=== PATIENT | female | born 1995 | race Caucasian/White ===

== ENCOUNTER 2019-11-27 18:25 | Outpatient (CLI) | payer MEDICAID, SELFPAY ==
[2019-11-27] VITALS (23 sets, daily range): BP systolic 105–117; BP diastolic 60–68; PULSE 83–96; O2SAT 96–98; BMI 35.1
[2019-11-27] MEDS: famotidine 20 mg/2 mL INJ IVP (19:24)
[2019-11-27] MEDS: sodium chloride 0.9% 1,000 ML 999 ML IV (19:24)
--- NOTE | 2019-11-27 22:00 | PM.ACPR ---
Procedure/Consent Procedure Narrative: NONSTRESS TEST: Place of test: [facility] [place] Indication: 24-year-old 2 para 1-0-0-1 at 31 weeks gestation, abdominal pain Date and time of test: 11/27/2019, 9 PM Baseline: 145 Variability: Moderate Accelerations: Present Decelerations: None Tocometry: Irregular contractions INTERPRETATION: NST nonreactive, continue kick counts
== END 2019-11-27 21:50 | disposition home or self-care (01) ==
LOC: OPOB 18:37 → OBGYN 21:48
PROVIDERS: Visit Provider Obstetrics & Gynecology
DX: O26.899 Other specified pregnancy related conditions, unspecified trimester (principal); Z3A.00 Weeks of gestation of pregnancy not specified; R10.9 Unspecified abdominal pain
CPT/HCPCS: 12345; 96360; 96375; 99211; J3490; J7030

== ENCOUNTER 2020-01-09 02:18 | Outpatient (CLI) | payer MEDICAID, SELFPAY ==
[2020-01-09] VITALS (20 sets, daily range): BP systolic 0–140; BP diastolic 0–87; PULSE 69–98; BMI 36.9
[2020-01-09] MEDS: HYDROcodone-acetaminophen 5-325 mg Tablet 1 TAB PO ×2 (04:28→05:40)
[2020-01-09 07:06] LABS: Bilirubin Urine Neg (Negative); Blood Urine Neg (Negative); Glucose Urine UA Norm (Normal); Ketones Urine Negative (Negative); Nitrate Urine Negative (Negative); Protein Urine Neg (Negative); Urine Appearance Clear (CLEAR); Urine Color Straw (Yellow); Urobilinogen Urine Norm (Negative); pH Urine 6 (5-7)
[2020-01-09 07:07] LABS: Leukocyte Esterase Urine Negative (Negative)
[2020-01-09 07:10] LABS: Add Urine Culture? No; Bacteria Urine TRACE /hpf; Mucus Urine TRACE /hpf; RBC Urine RARE /hpf (0-2); Squamous Epithelial Cell Urine 0-4 /hpf (0-5); WBC Urine RARE /hpf (0-5)
--- NOTE | 2020-01-09 07:40 | P.TNLD_ITS ---
OB L&D Triage Visit Information: Date of evaluation: 01/09/20 Comments/Additional reason(s) for visit: The patient is a 24-year-old 2 para 1 female who presented due to frequent contractions and abdominal pain. She was noted to be armando about every 5 minutes. She is having significant pain. We will continue to monitor the patient for about 4 hours. During that time she was still struggling with pain. As result I gave her a Vicodin on 2 separate oc casions. Her pain did improve moderately. She was discharged home in stable condition feeling better. Evaluation: Variability: Average (6-10) monitor accelerations: Present 15x15 Cervical dilation (cm): 1 station: -3 Laboratory results: Laboratory Tests 01/09/20 06:20 Urine Color Straw Urine Appearance Clear Urine pH 6 Ur Specific Gravit y 1.010 Urine Protein Neg Urine Glucose (UA) Norm Urine Ketones Negative Urine Blood Neg Urine Nitrate Negative Urine Bilirubin Neg Urine Urobilinogen Norm Ur Leukocyte Maria Eugenia ase Negative Urine RBC Rare Urine WBC Rare Ur Squamous Epith Cells 0-4 H Amorphous Sediment Not Reportable Urine Bacteria Trace Urine Mucus Trace Vital signs: Vital Signs - 24 hr 01/09/20 02:25 01/09/20 02:45 01/09/20 03:05 Pulse Rate 92 96 Blood Pressure 115/77 118/72 0/0 01/09/20 03:11 01/09/20 03:13 01/09/20 03:24 Pulse Rate 87 Blood Pressure 0/0 118/63 0/0 01/09/20 03:26 01/09/20 03:45 01/09/20 04:05 Pulse Rate 80 90 94 Blood Pressure 117/76 133/82 117/74 01/09/20 04:24 01/09/20 04:26 01/09/20 04:45 Pulse Rate 98 82 Blood Pressure 0/0 125/87 140/87 01/09/20 05:05 01/09/20 05:24 01/09/20 05:25 Pulse Rate 72 74 Blood Pressure 110/56 0/0 121/69 01/09/20 05:44 01/09/20 05:45 01/09/20 05:55 Pulse Rate 73 72 Blood Pressure 0/0 85/61 119/68 01/09/20 06:05 01/09/20 06:07 Pulse Rate 69 Blood Pressure 0/0 114/62 Final Diagnosis Final Diagnosis (1) Uterine contractions: Status: Acute (2) 37 weeks gestation of : Status: Acute Code(s): Z3A.37 - 37 weeks gestation of (3) Abdominal pain affecting : Status: Acute Code(s): O26.899 - Other specified related conditions, unspecified trimester; R10.9 - Unspecified abdominal pain (4) Sciatic nerve pain: Status: Acute Code(s): M54.30 - Sciatica, unspecified side Coding Level of Care Code Acute Detective And Intelligence Analyst for [facility] Fwd Diagnoses Uterine contractions 37 weeks gestation of Z3A.37 Abdominal pain affecting O26.899; R10.9 Sciatic nerve pain M54.30
== END 2020-01-09 07:30 | disposition home or self-care (01) ==
LOC: OPOB 02:18 → OBGYN 02:35
PROVIDERS: Family Provider Family Medicine; Visit Provider Family Medicine
DX: O62.9 Abnormality of forces of labor, unspecified (principal); R10.9 Unspecified abdominal pain; Z3A.37 37 weeks gestation of pregnancy; M54.30 Sciatica, unspecified side
CPT/HCPCS: 12345; 59025; 81001; 99211

== ENCOUNTER 2020-01-11 12:53 | Outpatient (CLI) | payer MEDICAID, SELFPAY ==
[2020-01-11 12:53] VITALS: BMI 37.0
[2020-01-11 13:11] VITALS: BP 120/73; PULSE 104; RESP 20; TEMP 36.7
[2020-01-11] MEDS: HYDROcodone-acetaminophen 5-325 mg Tablet 2 TAB PO (14:20)
[2020-01-11] MEDS: cyclobenzaprine 10 mg Tablet PO (15:09)
[2020-01-11 16:44] VITALS: BP 122/67; PULSE 72
--- NOTE | 2020-01-11 18:00 | PC.NURSE ---
Pt to L/D c/o severe back/hip pain 10/10, constant, unable to walk. This aligner typewriter assisted pt to bed, placed on monitor/toco, and SVE performed. Pt writhing in bed, denies ctx/labor pain, just the back/hip pain. Offered heating pad while waiting on orders from MD, pt denied stating it makes her itch . Dr Bernard in to see pt, [place] and Flexeril given. After a couple hours pt rating pain 5/10, able to walk to bathroom with assistance, and requesting to eat. Dr Bernard notified, and gave orders to d/c pt home with Flexeril Rx. Pt refused stating flexeril doesn't help at all . Dr Bernard then talked with pt on phone, and pt agreed to d/c with Rx for [place] to be called in by him. Routine d/c instructions discussed, along with back/sciatic pain education. Pt to wheelchair without assistance and d/c home.
== END 2020-01-11 17:20 | disposition home or self-care (01) ==
LOC: OPOB 12:54 → OBGYN 12:55
PROVIDERS: Family Provider Family Medicine; Visit Provider Family Medicine
DX: O26.899 Other specified pregnancy related conditions, unspecified trimester (principal); M54.9 Dorsalgia, unspecified
CPT/HCPCS: 59025; 99211

== ENCOUNTER 2020-01-23 08:23 | Inpatient (IN) | payer MEDICAID, SELFPAY ==
[2020-01-23] VITALS (52 sets, daily range): BP systolic 0–152; BP diastolic 0–82; PULSE 67–94; RESP 16–18; TEMP 36.3–36.8; BMI 38.2
[2020-01-23] MEDS: miSOPROStol 100 mcg tablet 25 MCG VAGINAL ×4 (08:59→22:25)
[2020-01-23 09:04] LABS: Basophils % 0.3 %; Eosinophils # 0.1 10^3/uL (0.0-0.8); Eosinophils % 0.6 %; Hematocrit 35.6 % (37.0-47.0); Hemoglobin 11.5 g/dL (11.5-15.3); Lymphocytes # 1.7 10^3/uL (0.8-4.8); Lymphocytes % 15.7 %; Mean Corpuscular HGB Conc 32.3 g/dL (30.0-36.0); Mean Corpuscular Hemoglobin 29.1 pg (28.0-34.0); Mean Corpuscular Volume 90.1 fL (81-99); Mean Platelet Volume 11.4 fL (7.4-10.4); Monocytes # 0.8 10^3/uL (0.2-0.9); Neutrophils # 8.34 10^3/uL (1.8-7.7); Neutrophils % 75.9 %; Nucleated Red Blood Cells % 0 %; Platelet Count 316 10^3/cmm (130-400); Red Blood Count 3.95 10^6/uL (4.1-5.3); Red Cell Distribution Width 13.5 % (12.1-15.1)
[2020-01-23] MEDS: HYDROcodone-acetaminophen 5-325 mg Tablet 2 TAB PO (12:11)
[2020-01-23] MEDS: dextrose 5%-lactated ringers 1,000 ML 125 ML IV (17:16)
[2020-01-23] MEDS: fentaNYL 50 mcg/mL INJ 2mL IVP ×3 (17:16→22:06)
[2020-01-24] VITALS (104 sets, daily range): BP systolic 0–172; BP diastolic 0–93; PULSE 64–109; RESP 16–20; TEMP 36.7–37.1; O2SAT 91–99
[2020-01-24] MEDS: morphine 4 mg/mL SDV 1 mL 8 MG IM (00:55)
[2020-01-24] MEDS: promethazine 25 mg/mL SDV 1 mL IM (00:55)
[2020-01-24] MEDS: oxytocin 30 UNIT/500 ML BAG IV (02:44)
[2020-01-24] MEDS: dextrose 5%-lactated ringers 1,000 ML 125 ML IV (02:45)
[2020-01-24] MEDS: fentaNYL 50 mcg/mL INJ 2mL IVP ×2 (06:16→07:34)
[2020-01-24] MEDS: lactated ringers 1,000 ML 999 ML IV ×2 (07:34→08:25)
--- NOTE | 2020-01-24 09:57 | ANES.PROC ---
Anesthesia Procedures Procedure/Date: 01/24/20 Epidural: Time Out Performed: Yes Consents Signed: Procedure Consent Consent: from patient Lumbar Level: L3-L4 Epidural position: sitting Epidural procedure: sterile prep of area, 1% lidocaine to numb the area, 18 g needle, neg for paresthesia, test dose given, placed PCEA, no systemic response, sterile dressing applied and 0.2% Ropiavacaine @ mls/hr (13) Additional Comments: GORAN at 6, catheter at 11cm.
--- NOTE | 2020-01-24 13:59 | P.ANESASSM_ITS ---
Pre-Anesthetic Assessment Pre-Anesthetic Assessment: Height/Weight: Height 1.65 m Weight 104.326 kg Temp Pulse Resp BP Pulse Ox 98.8 F 75 20 H 131/69 97 01/24/20 13:45 01/24/20 13:56 01/24/20 07:34 01/24/20 13:56 01/24/20 08:51 Was Beta Sergey taken within 24 hours: N/A Social: Social History: No alcohol and No tobacco Exam: Pre-Anes Outpt Exam: alert, oriented x 3, clear to auscultation bilaterally and regular rate & rhythm Airway: Submandibular: WNL Cervical ROM: WNL MP: 2 Dentition: Full Pulmonary: Pulmonary: None reported CV/HEM: CV/HEM: None reported : : None reported Hepatic: Hepatic: None reported GI: GI: None reported Metabolic: Metabolic: None reported Musc/skel: Musc/skel: None reported Neuropsych: Comments: Sciatic pain Anesthetic Plan: ASA status: 2 Anesthesia: Regional (specify below) (Labor epidural) Risk of > 500 ml blood loss (7ml/kg in children): No Meds/Allergies Current Medications: Current Medications Generic Name Dose Route Start Last Admin Trade Name Freq PRN Reason Stop Dose Admin Fentanyl 25 - 100 mcg 01/23/20 08:11 01/24/20 07:34 Fentanyl 50 Mcg/ Ml Inj 2ml IVP 75 mcg Q1H PRN Administration SEVERE PAIN Dextrose/Lactated Ringer's 1,000 mls @ 125 m ls/hr 01/23/20 08:11 01/24/20 11:04 Dextrose 5%-Lact ated Ringers IV 125 mls/hr .Q8H PRN Infusion per label comment s Dextrose/Lactated Ringer's 1,000 mls @ 125 m ls/hr 01/24/20 06:30 01/24/20 07:42 Dextrose 5%-Lact ated Ringers IV Not Given .Q8H MOHSEN Lactated Ringer's 1,000 mls @ 999 m ls/hr 01/24/20 06:17 01/24/20 11:03 Lactated Ringers IV Infused .Q1H1M PRN Infusion Per L&D Rescitati on Protocol Oxytocin 30 unit in 500 ml s @ 1 mls/hr 01/24/20 06:30 01/24/20 06:24 Pitocin IV Not Given .Q24H MOHSEN Protocol 1 MILLIUNIT/MIN Ropivacaine 200 mg in 100 mls @ 13 mls/hr 01/24/20 07:30 01/24/20 08:33 Naropin Premix EPIDURAL 13 mls/hr .Q7H42M MOHSEN Administration Lactated Ringer's 1,000 mls @ 999 m ls/hr 01/24/20 07:24 01/24/20 08:25 Lactated Ringers IV Infused .Q1H1M PRN Infusion See label comment s Misoprostol 25 mcg 01/23/20 22:15 01/23/20 22:25 Misoprostol 100 Mcg Tablet VAGINAL 01/25/20 22:16 25 mcg ONCE MOHSEN Administration PFSH Anesthesia PFSH: Family History (Updated 01/23/20 @ 09:11 by Roxane Mclaughlin RN) Other No significant active problems No significant family history Social History (Updated 01/23/20 @ 09:11 by Roxane Mclaughlin RN) Smoking and tobacco status: current every day smoker cigarettes Packs smoked per day: 0.25 (3-4 cig/day) Years cigarettes smoked: 14 Number of cigarettes per day: 1-5 Female Reproductive History: : 2 Data Anesthesia CBC & Chem 7: 01/23/20 08:42 Other Labs: Laboratory Results - last 48 hr 01/23/20 08:42 WBC 11.0 H RBC 3.95 L Hgb 11.5 Hct 35.6 L MCV 90.1 MCH 29.1 MCHC 32.3 RDW 13.5 Plt Count 316 MPV 11.4 H Neut % (Auto) 75.9 Lymph % (Auto) 15.7 [place] % (Auto) 7.0 Eos % (Auto) 0.6 Baso % (Auto) 0.3 Neut # (Auto) 8.34 H Lymph # (Auto) 1.7 [place] # (Auto) 0.8 Eos # (Auto) 0.1 Baso # (Auto) 0.0 Nucleated RBC % (auto) 0 Nucleated RBCs # 0.0 Cardiac Studies: No Data to Display
--- NOTE | 2020-01-24 14:15 | PM.DELIVERY ---
Delivery Note: Date of delivery: January 24, 2020 Pre-delivery diagnoses: 24-year-old 2 at 39 weeks and 6 days estimated gestational age Post-delivery diagnoses: Spontaneous vaginal delivery Op report anesthesia: Epidural Delivering Physician: Scott Bernard Estimated blood loss (mL): 150 Delivery: DELIVERY: The patient progressed to complete without difficulty. She delivered a female with a weight of 7 pounds 4 ounces with Apgars of 9, 9. The baby was delivered from the JUAN MIGUEL position. The baby's mouth and nose were suctioned at the site of the perineum. The baby was then completely delivered and placed on the mother's abdomen. The cord was then clamped and cut. There was no nuchal cord. There was no meconium. The placenta and 3 vessel cord were delivered intact shortly thereafter. The perineum and vaginal vault were carefully examined. No lacerations were noted. Both the mother and the baby were in stable condition. Post-Delivery Status: Good. A&P Assessment and plan (1) 39 weeks gestation of : Status: Acute (2) Spontaneous vaginal delivery: Status: Acute Coding Level of Care Code Acute Systems Test Engineer for [facility] Fwd Diagnoses 39 weeks gestation of Z3A.39 Spontaneous vaginal delivery O80
[2020-01-24] MEDS: ibuprofen 800 mg tablet PO ×2 (15:36→21:17)
[2020-01-24] MEDS: lanolin oint 7 gm 1 APPLIC TOPICAL (15:36)
[2020-01-24] MEDS: benzocaine-menthol 78 gm Canister 1 SPRAY TOPICAL (15:37)
[2020-01-24] MEDS: HYDROcodone-acetaminophen 5-325 mg Tablet PO ×2 (17:10→23:36)
[2020-01-24] MEDS: docusate sodium 100 mg Capsule PO (17:10)
--- NOTE | 2020-01-25 02:51 | PC.NURSE ---
Lab to room to draw Hemagram
[2020-01-25 03:08] LABS: Hematocrit 32.1 % (37.0-47.0); Hemoglobin 10.5 g/dL (11.5-15.3); Mean Corpuscular HGB Conc 32.7 g/dL (30.0-36.0); Mean Corpuscular Volume 88.7 fL (81-99); Mean Platelet Volume 11.4 fL (7.4-10.4); Platelet Count 253 10^3/cmm (130-400); Red Blood Count 3.62 10^6/uL (4.1-5.3); Red Cell Distribution Width 13.2 % (12.1-15.1); White Blood Count 13.7 10^3/uL (4.0-10.0)
[2020-01-25 05:24] VITALS: BP 118/83; PULSE 70; RESP 14; TEMP 36.6; O2SAT 97
[2020-01-25] MEDS: HYDROcodone-acetaminophen 5-325 mg Tablet PO ×2 (06:43→14:00)
--- NOTE | 2020-01-25 07:34 | PM.OBGYDC ---
Discharge Providers DANCE CHOREOGRAPHER Date of Admission: 01/23/20 08:23 Date of Discharge: 01/25/20 Attending Provider at Admission: Scott Bernard MD Attending Provider at Discharge: Scott Bernard MD Diagnoses at Discharge Discharge Diagnosis (1) 39 weeks gestation of : Status: Acute (2) Spontaneous vaginal delivery: Status: Acute Reason for Visit Reason for Visit: Induction of labor Hospital Course Hospital Course The patient is a 24-year-old female at 39 weeks estimated gestational age who presented for an elective induction due to significant back and hip pain. The patient presented to the hospital where she was placed on Cytotec 25 mcg x 4. An amniotomy was performed. The patient was placed on Pitocin to augment her labor. She progressed to complete and had an unremarkable delivery of a healthy-appearing female . Her course is also been unremarkable. She has had back and hip pain. Otherwise her bleeding has been within normal limits. Information Peripartum Data: Delivery Method: Vaginal Physical Exam Narrative: EXAM NARRATIVE: The patient is alert. She appears comfortable. Her heart has a regular rate and rhythm with no murmurs appreciated. Lungs are clear to auscultation bilaterally. Her fundus is firm and below the umbilicus. Urinary Catheter Management^: Thompson: Cath Placed During This Visit: yes, but has since been removed by the nurse Reason for Continuing Indwelling Catheter: Other Urinary Catheter Date of Insertion: 01/24/20 Urinary Catheter Time of Insertion: 08:56 Date Urinary Catheter Removed: 01/24/20 Time Urinary Catheter Discontinued: 13:40 Discharge Data Data Completed and Pending: Labs from last 24 hours 01/25/20 02:53 WBC 13.7 H RBC 3.62 L Hgb 10.5 L Hct 32.1 L MCV 88.7 MCH 29.0 MCHC 32.7 RDW 13.2 Plt Count 253 MPV 11.4 H Vitals: Last Vital Signs Temp 97.8 F 01/25/20 05:24 Pulse 70 01/25/20 05:24 Resp 14 01/25/20 05:24 BP 118/83 01/25/20 05:24 Pulse Ox 97 01/25/20 05:24 Discharge Plan Discharge Patient Disposition: Home Condition: Stable Prescriptions: New ibuprofen 800 mg Tablet 800 mg PO TID Qty: 45 RF: 0 Continued prenat.vits,gunnar,sfp-wlsg-eafko Tablet 1 tab PO DAILY RF: 0 Discharge Orders: Discharge Order (Routine); Ordered 01/25/20 Ordered By: Scott Bernard Referrals: Scott Bernard MD [Family Provider] - 6 Weeks Discharge Diet: Usual diet Discharge Activity: Limit activity as instructed Discharge Attestations DANCE CHOREOGRAPHER Time Spent in Discharge Care*: less than 30 min Coding Level of Care Code Acute Detective Narcotics And Vice for [facility] Fwd Diagnoses 39 weeks gestation of Z3A.39 Spontaneous vaginal delivery O80
[2020-01-25 09:00] VITALS: BP 114/68; PULSE 77; RESP 18; TEMP 36.7; O2SAT 98
[2020-01-25] MEDS: prenatal vitamin Capsule 1 CAP PO (09:09)
[2020-01-25] MEDS: docusate sodium 100 mg Capsule PO (09:09)
[2020-01-25] MEDS: ibuprofen 800 mg tablet PO ×2 (09:09→14:00)
--- NOTE | 2020-01-25 09:39 | PC.RESP ---
SMOKING CESSATION INFORMATION SENT TO PATIENT.
--- NOTE | 2020-01-25 10:56 | PC.NURSE ---
Rounding and Education Education was given on swelling of feet and ankles. Pt receptive to education. Sprite and sandwich taken to patient as requested during this rounding. Pt and significant other educated on COVID guidelines of not leaving the floor. Verbalized understanding.
[2020-01-25 14:50] VITALS: BP 137/86; PULSE 93; RESP 17; TEMP 36.6
[2020-01-25 14:54] VITALS: BP 137/86; PULSE 93; RESP 17; TEMP 36.6
== END 2020-01-25 14:55 | disposition home or self-care (01) | DRG 807 ==
LOC: OBGYN 09:15 → OPOB 15:30 → OBGYN 15:30
PROVIDERS: Admitting Provider Family Medicine; PCP Family Medicine; Visit Provider Family Medicine
DX: O80 Encounter for full-term uncomplicated delivery (principal); Z37.0 Single live birth; Z3A.39 39 weeks gestation of pregnancy
CPT/HCPCS: 12345; 36415; 51702; 59025; 59409; 85025; 85027; 96372; 96375; 99211; J2270; J2550; J2795; J3010

== ENCOUNTER 2020-01-30 08:49 | Observation (INO) | payer MEDICAID, SELFPAY ==
[2020-01-30] VITALS (16 sets, daily range): BP systolic 124–159; BP diastolic 64–112; PULSE 76–108; RESP 14–28; TEMP 36.2–36.7; O2SAT 86–100; BMI 36.4
--- NOTE | 2020-01-30 09:13 | ECG_ITS ---
[facility] Test Date: 2020-01-30 Pat Name: Daxa Kim Department: Room: Gender: Female Florist Designer: : 1995 Requested By: Min Baeza Order Number: [id number] Antoinette MD: Tigist Arevalo M.D. Measurements Intervals [place] Rate: 86 P: 49 CO: 151 QRS: 87 QRSD: 75 T: 46 QT: 372 QTc: 445 Interpretive Statements SINUS RHYTHM No previous ECG available for comparison Electronically Signed On 01-30-2020 15:17:11 INSERTING MACHINE OPERATOR by Tigist Arevalo M.D. [email or web address]
--- NOTE | 2020-01-30 09:13 | XR_ITS ---
WS: [id number] XR chest 1V portable [id number] REASON FOR EXAM: CP FINDINGS: No previous examination for comparison. There are interstitial infiltrative changes in both lower lobes with obscuration of the costophrenic angles. There is extensive peribronchial cuffing. The heart size is within normal limits. XR/XR chest 1V portable [id number] IMPRESSION: Lung and pleural findings as above. Cannot readily differentiate between an acu te pneumonitis and congestive failure in this case.
[2020-01-30] MEDS: morphine 4 mg/mL SDV 1 mL IVP (09:37)
[2020-01-30] MEDS: ondansetron 2 mg/ML SDV 2 mL 4 MG IVP (09:37)
[2020-01-30] MEDS: sodium chloride 0.9% 1,000 ML 999 ML IV (09:37)
[2020-01-30 09:55] LABS: INR 0.91 (0.8-1.2)
[2020-01-30 10:01] LABS: Troponin(5th) Baseline 14 ng/L (0-10)
[2020-01-30 10:04] LABS: D Dimer 7.19 ug/mIFEU (0-0.59)
--- NOTE | 2020-01-30 10:09 | CT_ITS ---
WS: [id number] CT CHEST ANGIOGRAPHY WITH REFORMATS HISTORY: sob, high d- dimer TECHNIQUE: Contiguous axial images are obtained through the chest during arterial injection of intrav enous contrast. Images are reconstructed to evaluate the pulmonary arteries. MIP imaging also reviewe d. All CT scans at [facility] use at least one of these dose optimization techniques: aut omated exposure control; mA and/or kV adjustment per patient size (includes targeted exams where dose is matched to clinical indication); or iterative reconstruction. CONTRAST: Omnipaque 350; 95 mL IV. DLP: 561.2 mGy.cm COMPARISON: None available. Very good opacification of the pulmonary artery. Pulmonary artery is slightly larger than the aorta. No filling defects or pulmonary emboli. Normal aorta. Normal size heart. Small bilateral layering pleural effusions. Diffuse bilateral pulmonary opacifications and moderate p ulmonary congestion. Minimally prominent lymphoid tissue at the hilar regions is likely reactive. Liver is enlarged and heterogeneous. CT/CT angio chest PE protcl [id number] IMPRESSION: 1. No pulmonary embolism. 2. Moderate pulmonary venous congestion with diffuse scattered patchy opacific ations and small bilateral pleural effusions. 3. Hepatomegaly.
[2020-01-30 10:11] LABS: Alanine Aminotransferase 19 U/L (0-33); Albumin Level 3.3 g/dL (3.5-5.2); Alkaline Phosphatase 157 IU/L (35-105); Anion Gap 14.1 (5-19); Aspartate Amino Transferase 17 U/L (0-32); Blood Urea Nitrogen 10 mg/dL (6-20); Calcium 8.6 mg/dL (8.5-10.5); Carbon Dioxide 22 mmol/L (22-29); Chloride 108 mmol/L (98-107); Globulin 2.5 g/dL (1.3-4.6); Glomerular Filtration Rate 86.7 mL/min (90-130); Glucose 104 mg/dL (65-115); Lipase 18 U/L (13-60); NT Pro B Type Natriuretic Pept 1114 pg/mL (0-125); Osmolality Calculated 289 mOsm/kg (285-295); Potassium 4.1 mmol/L (3.5-5.1); Sodium 140 mmol/L (136-145); Total Bilirubin 0.2 mg/dL (0.15-1.2); Total Protein 5.8 g/dL (6.6-8.7)
--- NOTE | 2020-01-30 10:21 | ED_ITS ---
Documented by User: KADY Mccarthy 01/30/20 11:11 HPI - Chest Pain General: Chief Complaint: Chest Pain Stated Complaint: chest pain Time Seen by Provider: 01/30/20 09:07 History of Present Illness: HPI narrative: Patient is 1 week . Comes in here with complaint shortness of breath chest pain that radiates into the left side of her back. This started yesterday. She has a history of pain consistent with this also to limited degree during the last 4 to 5 weeks her . Shortness of breath is new. Said he also has pain with deep inspiration. Denies fever chills. Does complain about leg swelling over the last few weeks for her . She is not breast-feeding. MD complaint: chest pain Timing of current episode: constant Prior episodes: No Onset: during rest Pain location: substernal Pain radiation: neck Severity: moderate Quality: sharp Relieving factors: nothing Exacerbating factors: exertion and inspiration Context: other (1 week ) Associated symptoms: Reports dyspnea; Deny abdominal pain, fever(s), nausea or vomiting Treatment prior to arrival: none Review of Systems Const: Denies: fever(s), chills or body aches Eyes: Denies: change in vision or blurry vision ENMT: Denies: throat pain or nasal congestion Card: Denies: chest pain or dyspnea on exertion Resp: Reports: dyspnea GI: Denies: abdominal pain, nausea or vomiting Musc: Denies: extremity pain Skin/Breast: Denies: rash Neuro: Denies: headache(s) Psych: Denies: anxiety or depression Marcus/Lymph: Denies: easy bruising PFSH ED PFSH: Family History (Updated 01/23/20 @ 09:11 by Roxane Mclaughlin RN) Other No significant active problems No significant family history Social History (Updated 01/23/20 @ 09:11 by Roxane Mclaughlin RN) Smoking and tobacco status: current every day smoker cigarettes Packs smoked per day: 0.25 (3-4 cig/day) Years cigarettes smoked: 14 Physical Exam Const: COMMON NORMALS: no acute distress, average body habitus and patient oriented x3 HENMT: COMMON NORMALS: normocephalic HEAD & SCALP: normal to inspection and normocephalic FACE & SINUS: normal facial exam Eye: COMMON NORMALS: conjunctivae normal GENERAL EYE: appearance normal, both eyes and all related structures CONJUNCTIVA: Yes conjunctivae normal Neck/C-Spine: COMMON NORMALS: no JVD Chest: COMMONS NORMALS: normal inspection of the chest Resp: COMMON NORMALS: normal respiratory effort and clear to auscultation bilaterally AUSCULTATION: clear to auscultation bilaterally Cardio: COMMON NORMALS: no JVD and regular rhythm RATE: tachycardic RHYTHM: regular rhythm OTHER: 2+ edema bilateral GI: COMMON NORMALS: Normal to inspection, nondistended, normoactive bowel sounds present Extremity: COMMON NORMALS: normal to inspection and full ROM Neuro: COMMON NORMALS: patient oriented x3 Course Vital Signs: Vital signs: Vital Signs Temperature 97.2 F L 01/30/20 08:55 Pulse Rate 76 01/30/20 13:00 Respiratory Rate 14 01/30/20 13:00 Blood Pressure 138/100 01/30/20 13:00 Pulse Oximetry 100 01/30/20 13:00 MDM - Chest Pain MDM Narrative: Medical decision making narrative: IV bolus stopped at 1015, 300 mils total in. Discussed case with Dr. Benson. Patient on O2 at 4 L due to sats dropping. Lab Data: Labs: Lab Results 01/30/20 01/30/20 01/30/20 Range/Units 09:30 09:30 09:30 WBC 10.9 H (4.0-10.0) 10^3/ uL RBC 3.75 L (4.1-5.3) 10^6/u L Hgb 10.9 L (11.5-15.3) g/dL Hct 34.1 L (37.0-47.0) % MCV 90.9 (81-99) fL MCH 29.1 (28.0-34.0) pg MCHC 32.0 (30.0-36.0) g/dL RDW 13.7 (12.1-15.1) % Plt Count 373 (130-400) 10^3/c mm MPV 10.9 H (7.4-10.4) fL Neut % (Auto) 75.9 % Lymph % (Auto) 14.8 % [place] % (Auto) 6.6 % Eos % (Auto) 2.0 % Baso % (Auto) 0.3 % Neut # (Auto) 8.23 H (1.8-7.7) 10^3/u L Lymph # (Auto) 1.6 (0.8-4.8) 10^3/u L [place] # (Auto) 0.7 (0.2-0.9) 10^3/u L Eos # (Auto) 0.2 (0.0-0.8) 10^3/u L Baso # (Auto) 0.0 (0.0-0.1) 10^3/u L Nucleated RBC % (a uto) 0 % Nucleated RBCs # 0.0 /100WBC PT 12.50 (12.1-14.9) SECO NDS INR 0.91 (0.8-1.2) D-Dimer 7.19 H (0-0.59) ug/mIFE U Specimen Type Sample Site ABG pH (7.35-7.45) ABG pCO2 (35-45) mmHg ABG pO2 (80.0-100.0) mmH g ABG HCO3 (22-26) mmol/L ABG Base Excess (-2.0-2.0) mmol/ L Reynold Test Hematocrit (37-47) % O2 Delivery Device O2 Liters/Min % FiO2 % [employer] Digital Project Manager ID Sodium 140 (136-145) mmol/L Potassium 4.1 (3.5-5.1) mmol/L Chloride 108 H (98-107) mmol/L Carbon Dioxide 22 (22-29) mmol/L Anion Gap 14.1 (5-19) BUN 10 (6-20) mg/dL Creatinine 0.8 (0.5-0.9) mg/dL GFR Calculation 86.7 L (90-130) mL/min Glucose 104 (65-115) mg/dL Calculated Osmolal ity 289 (285-295) mOsm/k g Calcium 8.6 (8.5-10.5) mg/dL Total Bilirubin 0.2 (0.15-1.2) mg/dL AST 17 (0-32) U/L ALT 19 (0-33) U/L Alkaline Phosphata se 157 H (35-105) IU/L Troponin T Baselin e (0-10) ng/L Troponin T 120 Min [place] (0-10) ng/L Delta Troponin T (0-10) ABS# NT-Pro-B Natriuret Pep 1114 H (0-125) pg/mL Total Protein 5.8 L (6.6-8.7) g/dL Albumin 3.3 L (3.5-5.2) g/dL Globulin 2.5 (1.3-4.6) g/dL Lipase 18 (13-60) U/L TSH (0.27-4.20) uIU/ mL Free T4 (0.82-1.77) ng/d L Urine Color (Yellow) Urine Appearance (CLEAR) Urine pH (5-7) Ur Specific Gravit y (1.005-1.030) Urine Protein (Negative) Urine Glucose (UA) (Normal) Urine Ketones (Negative) Urine Blood (Negative) Urine Nitrate (Negative) Urine Bilirubin (Negative) Urine Urobilinogen (Negative) mg/dL Ur Leukocyte Maria Eugenia ase (Negative) Urine RBC (0-2) /hpf Urine WBC (0-5) /hpf Ur Squamous Epith Cells (0-5) /hpf Amorphous Sediment Urine Bacteria (NONE) /hpf SARS-CoV-2 Ag (Rap id) (Negative) 01/30/20 01/30/20 01/30/20 Range/Units 09:30 09:30 10:30 WBC (4.0-10.0) 10^3/ uL RBC (4.1-5.3) 10^6/u L Hgb (11.5-15.3) g/dL Hct (37.0-47.0) % MCV (81-99) fL MCH (28.0-34.0) pg MCHC (30.0-36.0) g/dL RDW (12.1-15.1) % Plt Count (130-400) 10^3/c mm MPV (7.4-10.4) fL Neut % (Auto) % Lymph % (Auto) % [place] % (Auto) % Eos % (Auto) % Baso % (Auto) % Neut # (Auto) (1.8-7.7) 10^3/u L Lymph # (Auto) (0.8-4.8) 10^3/u L [place] # (Auto) (0.2-0.9) 10^3/u L Eos # (Auto) (0.0-0.8) 10^3/u L Baso # (Auto) (0.0-0.1) 10^3/u L Nucleated RBC % (a uto) % Nucleated RBCs # /100WBC PT (12.1-14.9) SECO NDS INR (0.8-1.2) D-Dimer (0-0.59) ug/mIFE U Specimen Type Sample Site ABG pH (7.35-7.45) ABG pCO2 (35-45) mmHg ABG pO2 (80.0-100.0) mmH g ABG HCO3 (22-26) mmol/L ABG Base Excess (-2.0-2.0) mmol/ L Reynold Test Hematocrit (37-47) % O2 Delivery Device O2 Liters/Min % FiO2 % [employer] Project Manager ID Sodium (136-145) mmol/L Potassium (3.5-5.1) mmol/L Chloride (98-107) mmol/L Carbon Dioxide (22-29) mmol/L Anion Gap (5-19) BUN (6-20) mg/dL Creatinine (0.5-0.9) mg/dL GFR Calculation (90-130) mL/min Glucose (65-115) mg/dL Calculated Osmolal ity (285-295) mOsm/k g Calcium (8.5-10.5) mg/dL Total Bilirubin (0.15-1.2) mg/dL AST (0-32) U/L ALT (0-33) U/L Alkaline Phosphata se (35-105) IU/L Troponin T Baselin e 14 H (0-10) ng/L Troponin T 120 Min [place] (0-10) ng/L Delta Troponin T (0-10) ABS# NT-Pro-B Natriuret Pep (0-125) pg/mL Total Protein (6.6-8.7) g/dL Albumin (3.5-5.2) g/dL Globulin (1.3-4.6) g/dL Lipase (13-60) U/L TSH 3.76 (0.27-4.20) uIU/ mL Free T4 1.03 (0.82-1.77) ng/d L Urine Color (Yellow) Urine Appearance (CLEAR) Urine pH (5-7) Ur Specific Gravit y (1.005-1.030) Urine Protein (Negative) Urine Glucose (UA) (Normal) Urine Ketones (Negative) Urine Blood (Negative) Urine Nitrate (Negative) Urine Bilirubin (Negative) Urine Urobilinogen (Negative) mg/dL Ur Leukocyte Maria Eugenia ase (Negative) Urine RBC (0-2) /hpf Urine WBC (0-5) /hpf Ur Squamous Epith Cells (0-5) /hpf Amorphous Sediment Urine Bacteria (NONE) /hpf SARS-CoV-2 Ag (Rap id) Negative (Negative) 01/30/20 01/30/20 01/30/20 Range/Units 11:17 11:25 11:25 WBC (4.0-10.0) 10^3/ uL RBC (4.1-5.3) 10^6/u L Hgb (11.5-15.3) g/dL Hct (37.0-47.0) % MCV (81-99) fL MCH (28.0-34.0) pg MCHC (30.0-36.0) g/dL RDW (12.1-15.1) % Plt Count (130-400) 10^3/c mm MPV (7.4-10.4) fL Neut % (Auto) % Lymph % (Auto) % [place] % (Auto) % Eos % (Auto) % Baso % (Auto) % Neut # (Auto) (1.8-7.7) 10^3/u L Lymph # (Auto) (0.8-4.8) 10^3/u L [place] # (Auto) (0.2-0.9) 10^3/u L Eos # (Auto) (0.0-0.8) 10^3/u L Baso # (Auto) (0.0-0.1) 10^3/u L Nucleated RBC % (a uto) % Nucleated RBCs # /100WBC PT (12.1-14.9) SECO NDS INR (0.8-1.2) D-Dimer (0-0.59) ug/mIFE U Specimen Type Arterial Sample Site Radial, right ABG pH 7.44 (7.35-7.45) ABG pCO2 34.7 L (35-45) mmHg ABG pO2 61.8 L (80.0-100.0) mmH g ABG HCO3 23.6 (22-26) mmol/L ABG Base Excess -0.1 (-2.0-2.0) mmol/ L Reynold Test Pos Hematocrit 38.6 (37-47) % O2 Delivery Device Nc O2 Liters/Min 4.0 % FiO2 36.0 % Fre[employer] Digital Project Manager ID Ed Sodium (136-145) mmol/L Potassium (3.5-5.1) mmol/L Chloride (98-107) mmol/L Carbon Dioxide (22-29) mmol/L Anion Gap (5-19) BUN (6-20) mg/dL Creatinine (0.5-0.9) mg/dL GFR Calculation (90-130) mL/min Glucose (65-115) mg/dL Calculated Osmolal ity (285-295) mOsm/k g Calcium (8.5-10.5) mg/dL Total Bilirubin (0.15-1.2) mg/dL AST (0-32) U/L ALT (0-33) U/L Alkaline Phosphata se (35-105) IU/L Troponin T Baselin e (0-10) ng/L Troponin T 120 Min [place] 13.41 H (0-10) ng/L Delta Troponin T -0.59 L (0-10) ABS# NT-Pro-B Natriuret Pep (0-125) pg/mL Total Protein (6.6-8.7) g/dL Albumin (3.5-5.2) g/dL Globulin (1.3-4.6) g/dL Lipase (13-60) U/L TSH (0.27-4.20) uIU/ mL Free T4 (0.82-1.77) ng/d L Urine Color Straw (Yellow) Urine Appearance Clear (CLEAR) Urine pH 7.0 (5-7) Ur Specific Gravit y 1.005 (1.005-1.030) Urine Protein Neg (Negative) Urine Glucose (UA) Norm (Normal) Urine Ketones Negative (Negative) Urine Blood 3+ H (Negative) Urine Nitrate Negative (Negative) Urine Bilirubin Neg (Negative) Urine Urobilinogen Norm (Negative) mg/dL Ur Leukocyte Maria Eugenia ase Negative (Negative) Urine RBC 5-10 H (0-2) /hpf Urine WBC None (0-5) /hpf Ur Squamous Epith Cells 0-4 H (0-5) /hpf Amorphous Sediment Not Reportable Urine Bacteria Trace (NONE) /hpf SARS-CoV-2 Ag (Rap id) (Negative) Discharge Plan Discharge Patient Disposition: Placed in Observation Clinical Impression: Accelerated hypertension, Diastolic CHF, Mitral valve regurgitation Condition: Stable Sign Out Sign Out Data: Patient Sign Out occurred on 01/30/20 at 11:18. Patient's care was discussed, and care was transferred from to Jhony Benson DO. Coding Level of Care Code ED Profiling Machine Set Up Operator Tool for Chg Fwd Exam Comprehensive Documented by User: Jhony Benson DO 01/30/20 14:02 HPI - Chest Pain General: Chief Complaint: Chest Pain Stated Complaint: chest pain Time Seen by Provider: 01/30/20 09:07 History of Present Illness: HPI narrative: Patient 1 week . Initially seen by midlevel and we had discussed throughout the course of the work-up. Note reviewed. Discussed with the patient began having chest discomfort several weeks of the last portion of the . Then overnight began having shortness of breath and swelling increased swelling in her legs. Onset (ago): hour(s) Timing of current episode: episodic Prior episodes: No Onset: during rest Relieving factors: rest and sitting upright Exacerbating factors: exertion and supine Associated symptoms: Reports dyspnea and leg edema; Deny abdominal pain, diaphoresis, fever(s), nausea, palpitations, sense of impending doom, syncope or vomiting Treatment prior to arrival: none Review of Systems Const: Denies: fever(s) or diaphoresis Card: Reports: edema, dyspnea on exertion and orthopnea; Denies: palpitations or syncope Resp: Reports: dyspnea GI: Denies: abdominal pain, nausea or vomiting : Denies: flank pain, difficulty voiding, dysuria, urinary frequency or urinary urgency Skin/Breast: Denies: rash or pruritus PFS ED PFSH: Family History (Updated 01/23/20 @ 09:11 by Roxane Mclaughlin RN) Other No significant active problems No significant family history Social History (Updated 01/23/20 @ 09:11 by Roxane Mclaughlin RN) Smoking and tobacco status: current every day smoker cigarettes Packs smoked per day: 0.25 (3-4 cig/day) Years cigarettes smoked: 14 Course Vital Signs: Vital signs: Vital Signs Temperature 97.2 F L 01/30/20 08:55 Pulse Rate 76 01/30/20 13:00 Respiratory Rate 14 01/30/20 13:00 Blood Pressure 138/100 01/30/20 13:00 Pulse Oximetry 100 01/30/20 13:00 MDM - Chest Pain MDM Narrative: Medical decision making narrative: Patient initially has been given some fluid and then after 300 mL this was stopped. She was given supplemental oxygen and diuresed. Her blood pressure was also significantly elevated she was started on some Nitropaste and given amlodipine. Blood pressure improved her breathing is improved and oxygen need is down to 2 L. Her BNP is 1100. Chest x-ray in the CT of the chest show pulmonary congestion. Echocardiogram showed 50% ejection fraction only slightly diminished. Discussed Dr. Garcia feels require some diastolic component is always a contributing hypertension. Discussed Dr. Bernard will admit her to the hospital he will be the attending consult Dr. Maria. Lab Data: Labs: Lab Results 01/30/20 01/30/20 01/30/20 Range/Units 09:30 09:30 09:30 WBC 10.9 H (4.0-10.0) 10^3/ uL RBC 3.75 L (4.1-5.3) 10^6/u L Hgb 10.9 L (11.5-15.3) g/dL Hct 34.1 L (37.0-47.0) % MCV 90.9 (81-99) fL MCH 29.1 (28.0-34.0) pg MCHC 32.0 (30.0-36.0) g/dL RDW 13.7 (12.1-15.1) % Plt Count 373 (130-400) 10^3/c mm MPV 10.9 H (7.4-10.4) fL Neut % (Auto) 75.9 % Lymph % (Auto) 14.8 % [place] % (Auto) 6.6 % Eos % (Auto) 2.0 % Baso % (Auto) 0.3 % Neut # (Auto) 8.23 H (1.8-7.7) 10^3/u L Lymph # (Auto) 1.6 (0.8-4.8) 10^3/u L [place] # (Auto) 0.7 (0.2-0.9) 10^3/u L Eos # (Auto) 0.2 (0.0-0.8) 10^3/u L Baso # (Auto) 0.0 (0.0-0.1) 10^3/u L Nucleated RBC % (a uto) 0 % Nucleated RBCs # 0.0 /100WBC PT 12.50 (12.1-14.9) SECO NDS INR 0.91 (0.8-1.2) D-Dimer 7.19 H (0-0.59) ug/mIFE U Specimen Type Sample Site ABG pH (7.35-7.45) ABG pCO2 (35-45) mmHg ABG pO2 (80.0-100.0) mmH g ABG HCO3 (22-26) mmol/L ABG Base Excess (-2.0-2.0) mmol/ L Reynold Test Hematocrit (37-47) % O2 Delivery Device O2 Liters/Min % FiO2 % [employer] Digital Project Manager ID Sodium 140 (136-145) mmol/L Potassium 4.1 (3.5-5.1) mmol/L Chloride 108 H (98-107) mmol/L Carbon Dioxide 22 (22-29) mmol/L Anion Gap 14.1 (5-19) BUN 10 (6-20) mg/dL Creatinine 0.8 (0.5-0.9) mg/dL GFR Calculation 86.7 L (90-130) mL/min Glucose 104 (65-115) mg/dL Calculated Osmolal ity 289 (285-295) mOsm/k g Calcium 8.6 (8.5-10.5) mg/dL Total Bilirubin 0.2 (0.15-1.2) mg/dL AST 17 (0-32) U/L ALT 19 (0-33) U/L Alkaline Phosphata se 157 H (35-105) IU/L Troponin T Baselin e (0-10) ng/L Troponin T 120 Min [place] (0-10) ng/L Delta Troponin T (0-10) ABS# NT-Pro-B Natriuret Pep 1114 H (0-125) pg/mL Total Protein 5.8 L (6.6-8.7) g/dL Albumin 3.3 L (3.5-5.2) g/dL Globulin 2.5 (1.3-4.6) g/dL Lipase 18 (13-60) U/L TSH (0.27-4.20) uIU/ mL Free T4 (0.82-1.77) ng/d L Urine Color (Yellow) Urine Appearance (CLEAR) Urine pH (5-7) Ur Specific Gravit y (1.005-1.030) Urine Protein (Negative) Urine Glucose (UA) (Normal) Urine Ketones (Negative) Urine Blood (Negative) Urine Nitrate (Negative) Urine Bilirubin (Negative) Urine Urobilinogen (Negative) mg/dL Ur Leukocyte Maria Eugenia ase (Negative) Urine RBC (0-2) /hpf Urine WBC (0-5) /hpf Ur Squamous Epith Cells (0-5) /hpf Amorphous Sediment Urine Bacteria (NONE) /hpf SARS-CoV-2 Ag (Rap id) (Negative) 01/30/20 01/30/20 01/30/20 Range/Units 09:30 09:30 10:30 WBC (4.0-10.0) 10^3/ uL RBC (4.1-5.3) 10^6/u L Hgb (11.5-15.3) g/dL Hct (37.0-47.0) % MCV (81-99) fL MCH (28.0-34.0) pg MCHC (30.0-36.0) g/dL RDW (12.1-15.1) % Plt Count (130-400) 10^3/c mm MPV (7.4-10.4) fL Neut % (Auto) % Lymph % (Auto) % [place] % (Auto) % Eos % (Auto) % Baso % (Auto) % Neut # (Auto) (1.8-7.7) 10^3/u L Lymph # (Auto) (0.8-4.8) 10^3/u L [place] # (Auto) (0.2-0.9) 10^3/u L Eos # (Auto) (0.0-0.8) 10^3/u L Baso # (Auto) (0.0-0.1) 10^3/u L Nucleated RBC % (a uto) % Nucleated RBCs # /100WBC PT (12.1-14.9) SECO NDS INR (0.8-1.2) D-Dimer (0-0.59) ug/mIFE U Specimen Type Sample Site ABG pH (7.35-7.45) ABG pCO2 (35-45) mmHg ABG pO2 (80.0-100.0) mmH g ABG HCO3 (22-26) mmol/L ABG Base Excess (-2.0-2.0) mmol/ L Reynold Test Hematocrit (37-47) % O2 Delivery Device O2 Liters/Min % FiO2 % [employer] Digital Project Manager ID Sodium (136-145) mmol/L Potassium (3.5-5.1) mmol/L Chloride (98-107) mmol/L Carbon Dioxide (22-29) mmol/L Anion Gap (5-19) BUN (6-20) mg/dL Creatinine (0.5-0.9) mg/dL GFR Calculation (90-130) mL/min Glucose (65-115) mg/dL Calculated Osmolal ity (285-295) mOsm/k g Calcium (8.5-10.5) mg/dL Total Bilirubin (0.15-1.2) mg/dL AST (0-32) U/L ALT (0-33) U/L Alkaline Phosphata se (35-105) IU/L Troponin T Baselin e 14 H (0-10) ng/L Troponin T 120 Min [place] (0-10) ng/L Delta Troponin T (0-10) ABS# NT-Pro-B Natriuret Pep (0-125) pg/mL Total Protein (6.6-8.7) g/dL Albumin (3.5-5.2) g/dL Globulin (1.3-4.6) g/dL Lipase (13-60) U/L TSH 3.76 (0.27-4.20) uIU/ mL Free T4 1.03 (0.82-1.77) ng/d L Urine Color (Yellow) Urine Appearance (CLEAR) Urine pH (5-7) Ur Specific Gravit y (1.005-1.030) Urine Protein (Negative) Urine Glucose (UA) (Normal) Urine Ketones (Negative) Urine Blood (Negative) Urine Nitrate (Negative) Urine Bilirubin (Negative) Urine Urobilinogen (Negative) mg/dL Ur Leukocyte Maria Eugenia ase (Negative) Urine RBC (0-2) /hpf Urine WBC (0-5) /hpf Ur Squamous Epith Cells (0-5) /hpf Amorphous Sediment Urine Bacteria (NONE) /hpf SARS-CoV-2 Ag (Rap id) Negative (Negative) 01/30/20 01/30/20 01/30/20 Range/Units 11:17 11:25 11:25 WBC (4.0-10.0) 10^3/ uL RBC (4.1-5.3) 10^6/u L Hgb (11.5-15.3) g/dL Hct (37.0-47.0) % MCV (81-99) fL MCH (28.0-34.0) pg MCHC (30.0-36.0) g/dL RDW (12.1-15.1) % Plt Count (130-400) 10^3/c mm MPV (7.4-10.4) fL Neut % (Auto) % Lymph % (Auto) % [place] % (Auto) % Eos % (Auto) % Baso % (Auto) % Neut # (Auto) (1.8-7.7) 10^3/u L Lymph # (Auto) (0.8-4.8) 10^3/u L [place] # (Auto) (0.2-0.9) 10^3/u L Eos # (Auto) (0.0-0.8) 10^3/u L Baso # (Auto) (0.0-0.1) 10^3/u L Nucleated RBC % (a uto) % Nucleated RBCs # /100WBC PT (12.1-14.9) SECO NDS INR (0.8-1.2) D-Dimer (0-0.59) ug/mIFE U Specimen Type Arterial Sample Site Radial, right ABG pH 7.44 (7.35-7.45) ABG pCO2 34.7 L (35-45) mmHg ABG pO2 61.8 L (80.0-100.0) mmH g ABG HCO3 23.6 (22-26) mmol/L ABG Base Excess -0.1 (-2.0-2.0) mmol/ L Reynold Test Pos Hematocrit 38.6 (37-47) % O2 Delivery Device Nc O2 Liters/Min 4.0 % FiO2 36.0 % Freel[employer] Digital Project Manager ID Ed Sodium (136-145) mmol/L Potassium (3.5-5.1) mmol/L Chloride (98-107) mmol/L Carbon Dioxide (22-29) mmol/L Anion Gap (5-19) BUN (6-20) mg/dL Creatinine (0.5-0.9) mg/dL GFR Calculation (90-130) mL/min Glucose (65-115) mg/dL Calculated Osmolal ity (285-295) mOsm/k g Calcium (8.5-10.5) mg/dL Total Bilirubin (0.15-1.2) mg/dL AST (0-32) U/L ALT (0-33) U/L Alkaline Phosphata se (35-105) IU/L Troponin T Baselin e (0-10) ng/L Troponin T 120 Min [place] 13.41 H (0-10) ng/L Delta Troponin T -0.59 L (0-10) ABS# NT-Pro-B Natriuret Pep (0-125) pg/mL Total Protein (6.6-8.7) g/dL Albumin (3.5-5.2) g/dL Globulin (1.3-4.6) g/dL Lipase (13-60) U/L TSH (0.27-4.20) uIU/ mL Free T4 (0.82-1.77) ng/d L Urine Color Straw (Yellow) Urine Appearance Clear (CLEAR) Urine pH 7.0 (5-7) Ur Specific Gravit y 1.005 (1.005-1.030) Urine Protein Neg (Negative) Urine Glucose (UA) Norm (Normal) Urine Ketones Negative (Negative) Urine Blood 3+ H (Negative) Urine Nitrate Negative (Negative) Urine Bilirubin Neg (Negative) Urine Urobilinogen Norm (Negative) mg/dL Ur Leukocyte Maria Eugenia ase Negative (Negative) Urine RBC 5-10 H (0-2) /hpf Urine WBC None (0-5) /hpf Ur Squamous Epith Cells 0-4 H (0-5) /hpf Amorphous Sediment Not Reportable Urine Bacteria Trace (NONE) /hpf SARS-CoV-2 Ag (Rap id) (Negative) Discharge Plan Discharge Patient Disposition: Placed in Observation Clinical Impression: Accelerated hypertension, Diastolic CHF, Mitral valve regurgitation Condition: Stable Sign Out Sign Out Data: Patient Sign Out occurred on 01/30/20 at 11:18. Patient's care was discussed, and care was transferred from to Jhony Benson DO. Coding Level of Care Code ED Profiling Machine Set Up Operator Tool for Chg Fwd Exam Comprehensive
[2020-01-30 10:30] LABS: Basophils % 0.3 %; Eosinophils # 0.2 10^3/uL (0.0-0.8); Hematocrit 34.1 % (37.0-47.0); Hemoglobin 10.9 g/dL (11.5-15.3); Lymphocytes # 1.6 10^3/uL (0.8-4.8); Lymphocytes % 14.8 %; Mean Corpuscular Hemoglobin 29.1 pg (28.0-34.0); Mean Corpuscular Volume 90.9 fL (81-99); Mean Platelet Volume 10.9 fL (7.4-10.4); Monocytes # 0.7 10^3/uL (0.2-0.9); Monocytes % 6.6 %; Neutrophils # 8.23 10^3/uL (1.8-7.7); Neutrophils % 75.9 %; Nucleated Red Blood Cells % 0 %; Platelet Count 373 10^3/cmm (130-400); Red Blood Count 3.75 10^6/uL (4.1-5.3); Red Cell Distribution Width 13.7 % (12.1-15.1); White Blood Count 10.9 10^3/uL (4.0-10.0)
[2020-01-30] MEDS: iohexol 350 mg/mL 100 mL Btl IV (10:30)
--- NOTE | 2020-01-30 10:43 | USCV_ITS ---
Daxa Kim Age: 24 Gender: F : 1995 Exam Date: 01/30/2020 10:59 Ordering Phys: Min Baeza Technologist: Araceli Echavarria Exam Location: [facility] [place] Indication: POST CHILDBITH X 5 DAYS. CHF BP: 158 / 112 HR: 100 Rhythm: Sinus Technical Quality: Adequate MEASUREMENTS (Male / Female) Normal Values 2D ECHO LV Diastolic Diameter PLAX 4.9 cm 4.2 - 5.9 / 3.9 - 5.3 cm LV Systolic Diameter PLAX 4.3 cm LV Chamber Size 4.1 cm IVS Diastolic Thickness 1.1 cm 0.6 - 1.0 / 0.6 - 0.9 cm IVS Systolic Thickness 1.4 cm LVPW Diastolic Thickness 1.2 cm 0.6 - 1.0 / 0.6 - 0.9 cm LVPW Systolic Thickness 1.1 cm RV Chamber Size 2.4 cm LVOT Diameter 2.0 cm LV Ejection Fraction 2D Teich 28.5 % LV Ejection Fraction MOD 2C 27.7 % LV Ejection Fraction 2C AL 37.7 % LA Diameter 4.2 cm LA Width 3.5 cm LA Height 4.5 cm RA Width 2.8 cm RA Height 3.4 cm Aorta at Sinotubular Diameter 2.6 cm M-MODE LV Diastolic Diameter MM 5.3 cm 4.2 - 5.9 / 3.9 - 5.3 cm LV Systolic Diameter MM 3.7 cm LV Ejection Fraction MM Teich 57.3 % IVS Diastolic Thickness MM 1.0 cm 0.6 - 1.0 / 0.6 - 0.9 cm IVS Systolic Thickness MM 1.4 cm LVPW Diastolic Thickness MM 1.1 cm 0.6 - 1.0 / 0.6 - 0.9 cm LVPW Systolic Thickness MM 1.5 cm RV Diastolic Diameter MM 1.5 cm Aortic Annulus Diameter 2.6 cm LA Ao Ratio MM 1.9 MV E Point Septal Separation 1.1 cm DOPPLER AV Peak Velocity 150.0 cm/s LVOT Peak Velocity 71.0 cm/s AV Area Cont Eq vti 2.6 cm squared AV Area Cont Eq pk 1.5 cm squared MV Area PHT 3.1 cm squared Mitral E to A Ratio 1.4 MV E' Velocity 74.0 cm/s Mitral E to MV E' Ratio 13.5 Mitral E to LV E' Lateral Ratio 13.5 Mitral E to LV E' Septal Ratio 13.5 TR Peak Velocity 230.7 cm/s TR Peak Gradient 21.3 mmHg TR Mean Velocity 176.8 cm/s TR Mean Gradient 13.7 mmHg TR Velocity Time Integral 73.7 cm TV Peak E Velocity 97.0 cm/s Right Atrial Pressure 3.0 mmHg Pulmonary Artery Systolic Pressu 24.3 mmHg PV Peak Velocity 65.0 cm/s RV Acceleration Time 0.2 s RV Ejection Time 0.4 s RV AcT/ET 0.5 FINDINGS Left Ventricle Normal LV size with slightly diminished ejection fraction of 50%. Left ventricle is upper limit of normal size Right Ventricle The right ventricle is normal in size and function. Right Atrium The right atrium is normal in size. Left Atrium Mildly increased left atrial size. Mitral Valve Moderate mitral valve regurgitation. Thickened mitral valve. Aortic Valve No gross abnormalities noted Tricuspid Valve Trace tricuspid valve regurgitation. Estimated pulmonary artery peak systolic pressure 24 mmHg Pulmonic Valve Pulmonic valve not well visualized. Pericardium Normal pericardium without effusion. Aorta Normal ascending aorta dimension. CONCLUSIONS Normal LV size with slightly diminished ejection fraction of 50%. Mild diffuse hypokinesia of the left ventricle Left ventricle is upper limit of normal size. Thickened mitral valve. Moderate mitral valve regurgitation. Mildly increased left atrial size. Trace tricuspid valve regurgitation. Normal pulmonary artery peak systolic pressure There is no pericardial effusion. There are no intracardiac masses. No previous study is available for comparison. Dr Riley Maria MD [facility] (Electronically Signed) Final Date: 30 January 2020 13:06 S
[2020-01-30] MEDS: FUROsemide 10 mg/mL SDV 2mL 20 MG IVP ×2 (10:58→11:33)
--- NOTE | 2020-01-30 11:13 | ECG_ITS ---
[facility] Test Date: 2020-01-30 Pat Name: Daxa Kim Department: Room: Gender: Female [employer]: : 1995 Requested By: Min Baeza Order Number: [id number] Antoinette MD: Tigist Arevalo M.D. Measurements Intervals [place] Rate: 88 P: 52 CT: 146 QRS: 86 QRSD: 74 T: 59 QT: 364 QTc: 443 Interpretive Statements SINUS RHYTHM Compared to ECG 01/30/2020 09:02:03 No significant changes Electronically Signed On 01-30-2020 17:13:22 GEOSPATIAL IMAGE ANALYST by Tigist Arevalo M.D. [id number]
[2020-01-30 11:27] LABS: ABG PCO2 34.7 mmHg (35-45); ABG PH Result 7.44 (7.35-7.45); Arterial Blood Gas Hematocrit 38.6 % (37-47); Base Excess ABG -0.1 mmol/L (-2.0-2.0); Blood Gas Allen Test Pos; Blood Gas Sample Type Arterial; HCO3 ABG 23.6 mmol/L (22-26); PO2 ABG 61.8 mmHg (80.0-100.0)
[2020-01-30 11:28] LABS: Blood Gas Operator Identificat ED; Blood Gas Sample Site Radial, right; Oxygen Device NC
[2020-01-30] MEDS: amlodipine 5 mg Tablet PO (11:33)
[2020-01-30] MEDS: nitroglycerin 1 gm/inch oint Pkt 1 INCH TOPICAL (11:34)
[2020-01-30 11:39] LABS: SARS Covid-2 Antigen Negative (Negative)
[2020-01-30 11:41] LABS: Add Urine Microscopic? YES; Bilirubin Urine Neg (Negative); Blood Urine 3+ (Negative); Glucose Urine UA Norm (Normal); Ketones Urine Negative (Negative); Leukocyte Esterase Urine Negative (Negative); Nitrate Urine Negative (Negative); Protein Urine Neg (Negative); Specific Gravity, Urine 1.005 (1.005-1.030); Urine Appearance Clear (CLEAR); Urine Color Straw (Yellow); Urobilinogen Urine Norm (Negative)
[2020-01-30 11:52] LABS: Add Urine Culture? No; Bacteria Urine TRACE /hpf; Squamous Epithelial Cell Urine 0-4 /hpf (0-5)
[2020-01-30 11:55] LABS: Troponin 5 2HR 13.41 ng/L (0-10)
[2020-01-30 12:00] LABS: Troponin 5 2HR Delta -0.59 ABS# (0-10)
[2020-01-30 12:17] LABS: Free T4 Free Thyroxine 1.03 ng/dL (0.82-1.77); Thyroid Stimulating Hormone 3.76 uIU/mL (0.27-4.20)
--- NOTE | 2020-01-30 15:13 | ECG_ITS ---
[facility] Test Date: 2020-01-30 Pat Name: Daxa Kim Department: Room: 277 Gender: Female Stockfeed Miller: : 1995 Requested By: Min Baeza Order Number: [id number] Antoinette MD: Tigist Arevalo M.D. Measurements Intervals Banning Rate: 77 P: 55 IN: 158 QRS: 90 QRSD: 81 T: 58 QT: 398 QTc: 451 Interpretive Statements SINUS RHYTHM Compared to ECG 01/30/2020 11:28:06 No significant changes Electronically Signed On 01-30-2020 21:19:16 JANITOR by Tigist Arevalo M.D. [id number]
[2020-01-30 16:33] LABS: Troponin 5 6HR 15.77 ng/L (0-10); Troponin 5 6HR Delta 1.77 ng/L (0-12)
--- NOTE | 2020-01-30 17:46 | P.HP_ITS ---
Providers/Chief Complaint Admitting Physician: Scott Bernard MD Primary Care Provider: Scott Bernard MD Chief Complaint: chest pain History of Present Illness Daxa Kim is a 24 year old female who presented to the emergency room today complaining of chest pain. She had an unremarkable delivery of an about a week ago. She did not have gestational hypertension or preeclampsia. She did have some appropriate lower extremity swelling during the last month of her . Prior to arriving at the ER she complained of being short of breath and having chest pain that started in the left side of her chest and radiated to the back. She describes the pain as being sharp. She had pain with deep respirations. She did not have any fever or chills. She denies any cough. She denies nausea vomiting. She denies orthopnea. She states she did feel lightheaded. Initially, upon arrival to ER she appeared to be doing quite well. Her vitals look pretty good. Her oxygen saturation was in the high 90s. Shortly after arriving, her sats did drop into the mid 80s. She was placed on oxygen, and her sats improved quickly. During evaluation she was found to have a BNP over of over thousand. Otherwise her evaluation was basically within normal limits with exception a chest x-ray which demonstrated some mild infiltrative changes. There is no cardiomegaly noted. . Her ejection fraction was found to be 50%. She was placed on diuretics, nitroglycerin, amlodipine and her condition improved dramatically. Her chest pain improved. She did complain of significant headache. Review of Systems General: Reports: 10 or more systems reviewed and unremarkable except in HPI and below Const: Denies: fever(s) Card: Reports: chest pain, edema and dyspnea on exertion Resp: Denies: dyspnea Medications/Allergies Home Medications Medication Instructions Recorded Confirmed Last Taken Type prenat.vits,gunnar,wzu-mlsd-ipocg 1 tab PO DAILY 01/09/20 01/30/20 01/26/20 History acetaminophen [Tylenol Extra 1,000 mg PO PRN 01/30/20 01/30/20 Unknown History Strength] ibuprofen 800 mg PO TID PRN 01/30/20 01/30/20 01/28/20 History Allergies Allergy/AdvReac Type Severity Reaction Status Date / Time No Known Allergies Allergy Verified 12/08/20 09:54 PFSH Acute PFSH: Family History Other No significant active problems No significant family history Social History Smoking and tobacco status: current every day smoker cigarettes Packs smoked per day: 0.25 (3-4 cig/day) Years cigarettes smoked: 14 Vitals/I&O/Wt Last Vital Signs Temp 97.9 F 01/30/20 15:38 Pulse 84 01/30/20 16:26 Resp 19 H 01/30/20 15:38 BP 136/91 01/30/20 15:38 Pulse Ox 95 01/30/20 16:26 01/30/20 01/30/20 01/30/20 06:59 14:59 22:59 Intake Total 765.9 / 765.9 0 / 765.9 Balance 765.9 / 765.9 0 / 765.9 Weight last 48 hrs Weight 219 lb Physical Exam Const: COMMON NORMALS: patient oriented x3 and alert HENMT: COMMON NORMALS: moist oral mucous membranes HEAD & SCALP: normal to inspection Chest: COMMONS NORMALS: normal inspection of the chest Resp: COMMON NORMALS: clear to auscultation bilaterally AUSCULTATION: clear to auscultation bilaterally Cardio: COMMON NORMALS: regular rate and regular rhythm RATE: regular rate RHYTHM: regular rhythm GI: INSPECTION: Yes normal to inspection and Yes other (Gravid) Extremity: COMMON NORMALS: normal to inspection GENERAL: Yes edema (Trace) Neuro: COMMON NORMALS: patient oriented x3, moves all extremities and no sensory deficits noted SENSORIUM/ORIENTATION: Yes alert Psych: COMMON NORMALS: mental status grossly normal Skin: COMMON NORMALS: no rashes or lesions noted GENERAL SKIN EXAM: no rashes or lesions noted Data : 01/30/20 09:30 01/30/20 09:30 Other Labs: D-dimer is 7.19 PT and INR within normal limits. Blood gas demonstrates an pH of 7.44 PCO2 of 34.7 and a PO2 of 61.8. Her troponin T was found to have a baseline of 14 and a 120-minute of 13.41 her BNP was 1114 the remainder of her metabolic panel was unremarkable for patient. Her TSH and free T4 were within normal limits . Her lipase was within normal limits. There is no protein noted in her urine. CT Chest: Radiologist's impression: No pulmonary embolus. Pulmonary congestion EKG 3: My Interpretation: No significant findings A&P Assessment and plan (1) Peripartum cardiomyopathy, : Status: Acute Additional A&P Information The patient's condition is improve dramatically. She has been very tearful and complains of a headache and says she wants to go home with her children. I have explained to her the importance of staying and the potential seriousness of her cardiomyopathy including the risk of . Despite discussion with her and her , they continue to be frustrated and may choose to leave AMA. I explained him the risk associate with that, and hopefully they will change their mind. Attestations Medical Necessity Statement*: The patient has cardiomyopathy that appears to responded well to the first line of treatment. Unfortunately, she could still decompensate. It is very possible she require more than 2 midnights depending on her response to diuretics and other appropriate therapy. 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
[2020-01-30] MEDS: HYDROcodone-acetaminophen 5-325 mg Tablet 2 TAB PO (17:52)
--- NOTE | 2020-01-30 18:20 | PC.NURSE ---
Patient very anxious and tearful, stating she wants to go home she is saying that she has an and an 8 year old at home that needs her. I explained to patient the importance of her staying due to her medical condition. patient then stated my head and my back hurts patient was given po hydrocodone. Dr Bernard here and spoke with patient. Shortly after he spoke with her this nurse rounded on patient and she stated that she was ready to go home, she would get more rest at home than she would here this nurse again explained to patient the importance of her staying to receive medical treatment for her condition. she refused, pt then signed an ama paper, Dr. Bernard was notified. Iv discontinued and patient was assisted out by staff.
--- NOTE | 2020-02-02 09:55 | PC.RESP ---
Smoking Cessation information sent to patient.
== END 2020-01-30 18:36 | disposition home or self-care (01) ==
LOC: ER 14:02 → MEDSURG 15:00
PROVIDERS: Nurse Practitioner Family; Admitting Provider Family Medicine; Emergency Provider Family Medicine; PCP Family Medicine; Visit Provider Family Medicine
DX: O90.3 Peripartum cardiomyopathy (principal); F17.210 Nicotine dependence, cigarettes, uncomplicated; Z53.29 Procedure and treatment not carried out because of patient's decision for other reasons
CPT/HCPCS: 12345; 36415; 36600; 71045; 71275; 80053; 81001; 82803; 83690; 83880; 84439; 84443; 84484; 85025; 85378; 85610; 87426; 93005; 93306; 96361; 96374; 96375; 96376; 99283; 99285; G0378; J1940; J2270; J2405; J7030; Q9967

== ENCOUNTER 2020-04-27 18:26 | Emergency (ER) | payer MEDICAID, SELFPAY ==
[2020-04-27 18:46] VITALS: BP 120/80; PULSE 79; RESP 14; TEMP 36.3; O2SAT 99; BMI 34.7
--- NOTE | 2020-04-27 18:59 | W.ED.ABDPA2 ---
HPI - Abdominal Pain General: Chief Complaint: Abdominal Pain Stated Complaint: abd pain Time Seen by Provider: 04/27/20 18:51 Source: patient Mode of arrival: ambulatory Limitations: no limitations History of Present Illness: HPI narrative: Patient is a nice 24-year-old female who presents to ED today with a complaint of abdominal pain. Patient tells me over the past 3 days mainly in the evenings she will be in the position secondary to abdominal pain. She tells me she has tried to make herself vomit and attempts to feel better but has been unsuccessful. She has not had any active episodes of vomiting on her own. She is reporting normal bowel movements. She has no urinary symptoms. No vaginal bleeding or vaginal discharge. She is 3 months . Patient tells me abdominal pain today has been constant and worse in severity prompting her visit. She tells me she believes her ulcers are inflamed . She tells me she was diagnosed with ulcers approximately 8 years ago. She states she has not been on medication for these over the past 2 years and has not had any issues. She is not complaining of bloody emesis, black or tarry stools or bloody stools. MD elicited complaint: abdominal pain Pertinent past history: other ( ulcers ) Onset (ago): day(s) Pain Consistency: constant Severity: severe Radiation: none Migration to: no migration Exacerbating factors: nothing Relieving factors: nothing Associated Symptoms: Denies change in bowel habits, change in stool character, chills, diarrhea, dysuria, fever(s), heartburn, hematochezia, hematemesis, melena, nausea, syncope and vomiting Related Data: Patient : No Review of Systems Const: Denies: fever(s), chills, body aches, fatigue or malaise Eyes: Denies: change in vision or blurry vision Card: Denies: chest pain, palpitations, irregular heart rhythm, lightheadedness, syncope or dyspnea on exertion Resp: Denies: dyspnea, productive cough or pain on inspiration GI: Reports: abdominal pain; Denies: nausea, vomiting, hematemesis, heartburn, diarrhea, change in bowel habits, pain on defecation, rectal pain, rectal swelling, change in stool character, hematochezia, melena or white/light colored stool : Denies: flank pain, difficulty voiding, dysuria, urinary frequency, urinary urgency or urinary hesitancy Musc: Denies: neck pain, back pain or joint pain Skin/Breast: Denies: rash Neuro: Denies: headache(s) PFSH ED PFSH: Family History Other No significant active problems No significant family history Social History Smoking and tobacco status: current every day smoker cigarettes Packs smoked per day: 0.25 (3-4 cig/day) Years cigarettes smoked: 14 Physical Exam Const: COMMON NORMALS: no acute distress, patient oriented x3, no limitations, alert and well nourished GENERAL APPEARANCE: cooperative ORIENTATION/CONSCIOUSNESS: Yes awake, Yes oriented to person, Yes oriented to place and Yes oriented to time HENMT: COMMON NORMALS: normocephalic and atraumatic HEAD & SCALP: normocephalic and atraumatic Resp: COMMON NORMALS: normal respiratory effort and clear to auscultation bilaterally AUSCULTATION: clear to auscultation bilaterally Cardio: COMMON NORMALS: regular rate and regular rhythm RATE: regular rate RHYTHM: regular rhythm GI: COMMON NORMALS: Normal to inspection, nondistended, normoactive bowel sounds present, Soft to palpation, No hepatosplenomegaly present and no masses INSPECTION: Yes normal to inspection PALPATION: Yes Soft to palpation, Yes Tenderness to palpation present (GI) (across mid to lower abdomen ) and Yes No hepatosplenomegaly present OTHER: no tenderness in pelvis : COMMON NORMALS: Yes no CVA tenderness BLADDER/KIDNEY EXAM: Yes no CVA tenderness Back/Pelvis: COMMON NORMALS: no CVA tenderness Neuro: COMMON NORMALS: patient oriented x3 SENSORIUM/ORIENTATION: Yes alert, Yes oriented to person, Yes oriented to place and Yes oriented to time Course Vital Signs: Vital signs: Vital Signs Temperature 97.3 F L 04/27/20 18:46 Pulse Rate 82 04/27/20 20:50 Respiratory Rate 18 04/27/20 20:50 Blood Pressure 117/50 04/27/20 20:50 Pulse Oximetry 96 04/27/20 20:50 MDM - Abdominal Pain MDM Narrative: Medical decision making narrative: Patient here with mid to lower abdominal pain over the past 3 to 4 days. Patient now tells me she has a history of IBS. She tells me her pain feels similar to when she was diagnosed with ulcers . She is not complaining of any bloody emesis. She has not had any bloody or black stools. Her vital signs have been stable throughout her stay. She has some minor elevations to her ALT and alk phos however these have been elevated previously. She has no RUQ pain. UA does not appear infected. CT scan showing a small amount of pelvic free fluid possibly from a ruptured ovarian cyst. Patient tells me she does have a history of ovarian cysts but states her pain today feels different. She is not having any pain lower in her pelvis on palpation. I will place patient on Prilosec and Bentyl at this time. Recommend close follow-up with her PCP Dr. Bernard. Return to ED precautions given. Lab Data: Labs: Lab Results 04/27/20 04/27/20 04/27/20 Range/Units 19:16 19:16 19:16 WBC 12.8 H (4.0-10.0) 10^3/ uL RBC 4.53 (4.1-5.3) 10^6/u L Hgb 13.3 (11.5-15.3) g/dL Hct 41.3 (37.0-47.0) % MCV 91.2 (81-99) fL MCH 29.4 (28.0-34.0) pg MCHC 32.2 (30.0-36.0) g/dL RDW 13.3 (12.1-15.1) % Plt Count 376 (130-400) 10^3/c mm MPV 10.4 (7.4-10.4) fL Neut % (Auto) 69.7 % Lymph % (Auto) 17.5 % Cabell % (Auto) 8.1 % Eos % (Auto) 3.8 % Baso % (Auto) 0.4 % Neut # (Auto) 8.94 H (1.8-7.7) 10^3/u L Lymph # (Auto) 2.2 (0.8-4.8) 10^3/u L Cabell # (Auto) 1.0 H (0.2-0.9) 10^3/u L Eos # (Auto) 0.5 (0.0-0.8) 10^3/u L Baso # (Auto) 0.1 (0.0-0.1) 10^3/u L Nucleated RBC % (a uto) 0 % Nucleated RBCs # 0.0 /100WBC Sodium 137 (136-145) mmol/L Potassium 4.0 (3.5-5.1) mmol/L Chloride 102 (98-107) mmol/L Carbon Dioxide 25 (22-29) mmol/L Anion Gap 14.0 (5-19) BUN 11 (6-20) mg/dL Creatinine 0.9 (0.5-0.9) mg/dL GFR Calculation 75.7 L (90-130) mL/min Glucose 89 (65-115) mg/dL Calculated Osmolal ity 283 L (285-295) mOsm/k g Calcium 9.3 (8.5-10.5) mg/dL Total Bilirubin 0.3 (0.15-1.2) mg/dL AST 30 (0-32) U/L ALT 55 H (0-33) U/L Alkaline Phosphata se 119 H (35-105) IU/L Total Protein 7.5 (6.6-8.7) g/dL Albumin 4.6 (3.5-5.2) g/dL Globulin 2.9 (1.3-4.6) g/dL HCG, Qual Negative (Negative) Urine Color (Yellow) Urine Appearance (CLEAR) Urine pH (5-7) Ur Specific Gravit y (1.005-1.030) Urine Protein (Negative) Urine Glucose (UA) (Normal) Urine Ketones (Negative) Urine Blood (Negative) Urine Nitrate (Negative) Urine Bilirubin (Negative) Urine Urobilinogen (Negative) mg/dL Ur Leukocyte Maria Eugenia ase (Negative) Urine RBC (0-2) /hpf Urine WBC (0-5) /hpf Ur Squamous Epith Cells (0-5) /hpf Amorphous Sediment /hpf Urine Bacteria (NONE) /hpf 04/27/20 Range/Units 19:30 WBC (4.0-10.0) 10^3/ uL RBC (4.1-5.3) 10^6/u L Hgb (11.5-15.3) g/dL Hct (37.0-47.0) % MCV (81-99) fL MCH (28.0-34.0) pg MCHC (30.0-36.0) g/dL RDW (12.1-15.1) % Plt Count (130-400) 10^3/c mm MPV (7.4-10.4) fL Neut % (Auto) % Lymph % (Auto) % Cabell % (Auto) % Eos % (Auto) % Baso % (Auto) % Neut # (Auto) (1.8-7.7) 10^3/u L Lymph # (Auto) (0.8-4.8) 10^3/u L Cabell # (Auto) (0.2-0.9) 10^3/u L Eos # (Auto) (0.0-0.8) 10^3/u L Baso # (Auto) (0.0-0.1) 10^3/u L Nucleated RBC % (a uto) % Nucleated RBCs # /100WBC Sodium (136-145) mmol/L Potassium (3.5-5.1) mmol/L Chloride (98-107) mmol/L Carbon Dioxide (22-29) mmol/L Anion Gap (5-19) BUN (6-20) mg/dL Creatinine (0.5-0.9) mg/dL GFR Calculation (90-130) mL/min Glucose (65-115) mg/dL Calculated Osmolal ity (285-295) mOsm/k g Calcium (8.5-10.5) mg/dL Total Bilirubin (0.15-1.2) mg/dL AST (0-32) U/L ALT (0-33) U/L Alkaline Phosphata se (35-105) IU/L Total Protein (6.6-8.7) g/dL Albumin (3.5-5.2) g/dL Globulin (1.3-4.6) g/dL HCG, Qual (Negative) Urine Color Yellow (Yellow) Urine Appearance Sl cloudy A (CLEAR) Urine pH 7 (5-7) Ur Specific Gravit y 1.015 (1.005-1.030) Urine Protein Neg (Negative) Urine Glucose (UA) Norm (Normal) Urine Ketones Negative (Negative) Urine Blood Neg (Negative) Urine Nitrate Negative (Negative) Urine Bilirubin Neg (Negative) Urine Urobilinogen Norm (Negative) mg/dL Ur Leukocyte Maria Eugenia ase Negative (Negative) Urine RBC None (0-2) /hpf Urine WBC None (0-5) /hpf Ur Squamous Epith Cells 15-25 H (0-5) /hpf Amorphous Sediment 1+ /hpf Urine Bacteria Trace (NONE) /hpf Imaging Data ^: CT Abd/Pel: Radiologist's impression: [facility] [address] [place] [address] CT Scan Report Signed Patient: Daxa Kim Unit #: [id number] : 1995 Age/Sex: 24 / F ADM Date: 04/27/20 Loc: ER Room/Bed: Attending Dr: Ordering Provider/Ordering MD: Ariela Chin Date of Service: 04/27/20 Procedure(s): CT abdomen pelvis w con* [id number] Accession Number(s): [id number] Report Number: [id number] PROCEDURE INFORMATION: Exam: CT Abdomen And Pelvis With Contrast Exam date and time: 04/27/2020 8:11 PM Age: 24 years old Clinical indication: Abdominal pain; Localized; Lower; Additional info: Lower abdominal pain TECHNIQUE: Imaging protocol: Computed tomography of the abdomen and pelvis with contrast. Radiation optimization: All CT scans at this facility use at least one of these dose optimization techniques: automated exposure control; mA and/or kV adjustment per patient size (includes targeted exams where dose is matched to clinical indication); or iterative reconstruction. Contrast material: OMNI 300; Contrast volume: 95 ml; Contrast route: INTRAVENOUS (IV); COMPARISON: No relevant prior studies available. RADIATION DOSE METRICS: Total DLP (mGy-cm): 1760.89 FINDINGS: Liver: Normal. No mass. Gallbladder and bile ducts: Normal. No calcified stones. No ductal dilation. Pancreas: Normal. No ductal dilation. Spleen: Normal. No splenomegaly. Adrenal glands: Normal. No mass. Kidneys and ureters: Normal. No hydronephrosis. Stomach and bowel: Unremarkable. No obstruction. No mucosal thickening. Appendix: Normal appendix. Intraperitoneal space: Small amount of nonspecific free fluid in the left dependent portion of the pelvis which is normal for a female, possible ruptured ovarian cyst. Vasculature: Unremarkable. No abdominal aortic aneurysm. Lymph nodes: Unremarkable. No enlarged lymph nodes. Urinary bladder: Unremarkable as visualized. Reproductive: Unremarkable as visualized. Bones/joints: Unremarkable. No acute fracture. Soft tissues: Unremarkable. IMPRESSION: Small amount of nonspecific free fluid in the left dependent portion of the pelvis which is normal for a female, possible ruptured ovarian cyst. CT/CT abdomen pelvis w con* [id number] Impression. Radiation Dose CTDIVOL = (mGy): DLP = 1760.89 (mGy-cm) Dictated By: Morgan Flaherty MD Signed By: Moragn Flaherty MD Signed Date/Time: 04/27/202035 DD/ 33 Discharge Plan Discharge Patient Disposition: Home Clinical Impression: Abdominal pain Qualifiers: Abdominal location: lower abdomen, unspecified Qualified Code(s): R10.30 - Lower abdominal pain, unspecified Condition: Stable Prescriptions: New Prilosec OTC 20 mg tablet,delayed release (DR/EC) 20 mg PO DAILY Qty: 30 RF: 0 dicyclomine 10 mg capsule 10 mg PO TID Qty: 30 RF: 0 No Action prenat.vits,gunnar,klc-uekh-fzxbj Tablet 1 tab PO DAILY RF: 0 Tylenol Extra Strength 500 mg Tablet 1,000 mg PO PRN RF: 0 ibuprofen 800 mg tablet 800 mg PO TID PRN (Reason: Pain) RF: 0 Discharge Orders: Discharge ED (Routine); Ordered 04/27/20 Ordered By: Ariela Chin Referrals: Scott Bernard MD [Primary Care Provider] - Patient Instructions: Irritable Bowel Syndrome (ED), Abdominal Pain (ED), Opioid Safety Activity Restrictions/Additional Instructions: [facility] is committed to fighting the nationwide opiate epidemic. We are providing ALL patients with information regarding opiate safety. If you received opiate pain medication during your stay or if you received a prescription for opiate pain medication-please review this handout. If not, you may disregard. Thank you. As discussed please follow-up with Dr. Bernard next week for reevaluation. Please return to the emergency department for worsening or uncontrollable pain, bloody vomit, bloody or black stools, severe pelvic pain, vaginal discharge, fevers, or any other concerns you may have. I hope you begin to feel better soon. Coding Level of Care Code ED Civil Design Technician for Julesg Baljeet
[2020-04-27 19:21] LABS: Basophils # 0.1 10^3/uL (0.0-0.1); Basophils % 0.4 %; Eosinophils # 0.5 10^3/uL (0.0-0.8); Eosinophils % 3.8 %; Hematocrit 41.3 % (37.0-47.0); Hemoglobin 13.3 g/dL (11.5-15.3); Lymphocytes # 2.2 10^3/uL (0.8-4.8); Lymphocytes % 17.5 %; Mean Corpuscular HGB Conc 32.2 g/dL (30.0-36.0); Mean Corpuscular Hemoglobin 29.4 pg (28.0-34.0); Mean Corpuscular Volume 91.2 fL (81-99); Mean Platelet Volume 10.4 fL (7.4-10.4); Monocytes % 8.1 %; Neutrophils # 8.94 10^3/uL (1.8-7.7); Neutrophils % 69.7 %; Nucleated Red Blood Cells % 0 %; Platelet Count 376 10^3/cmm (130-400); Red Blood Count 4.53 10^6/uL (4.1-5.3); Red Cell Distribution Width 13.3 % (12.1-15.1); White Blood Count 12.8 10^3/uL (4.0-10.0)
[2020-04-27] MEDS: ondansetron 2 mg/ML SDV 2 mL 4 MG IVP (19:23)
[2020-04-27 19:24] VITALS: RESP 16; O2SAT 97
[2020-04-27] MEDS: morphine 4 mg/mL SDV 1 mL IVP (19:24)
[2020-04-27 19:42] LABS: Alanine Aminotransferase 55 U/L (0-33); Albumin Level 4.6 g/dL (3.5-5.2); Alkaline Phosphatase 119 IU/L (35-105); Aspartate Amino Transferase 30 U/L (0-32); Blood Urea Nitrogen 11 mg/dL (6-20); Calcium 9.3 mg/dL (8.5-10.5); Carbon Dioxide 25 mmol/L (22-29); Chloride 102 mmol/L (98-107); Globulin 2.9 g/dL (1.3-4.6); Glomerular Filtration Rate 75.7 mL/min (90-130); Glucose 89 mg/dL (65-115); Osmolality Calculated 283 mOsm/kg (285-295); Sodium 137 mmol/L (136-145); Total Bilirubin 0.3 mg/dL (0.15-1.2); Total Protein 7.5 g/dL (6.6-8.7)
[2020-04-27 19:55] LABS: HCG, Serum Qual Negative (Negative)
[2020-04-27 20:15] LABS: Add Urine Microscopic? YES; Bilirubin Urine Neg (Negative); Blood Urine Neg (Negative); Glucose Urine UA Norm (Normal); Ketones Urine Negative (Negative); Leukocyte Esterase Urine Negative (Negative); Nitrate Urine Negative (Negative); Protein Urine Neg (Negative); Specific Gravity, Urine 1.015 (1.005-1.030); Squamous Epithelial Cell Urine 15-25 /hpf (0-5); Urine Color Yellow (Yellow); Urobilinogen Urine Norm (Negative); pH Urine 7 (5-7)
[2020-04-27 20:16] LABS: Add Urine Culture? No; Amorphous Sediment Urine 1+ /hpf; Bacteria Urine TRACE /hpf
[2020-04-27] MEDS: iohexol 300 mg/mL 100 mL Btl IV (20:19)
[2020-04-27 20:50] VITALS: BP 117/50; PULSE 82; RESP 18; O2SAT 96
[2020-04-27] MEDS: HYDROcodone-acetaminophen 5-325 mg Tablet 3 TAB PO (20:58)
[2020-04-27 21:00] VITALS: BP 117/70; PULSE 82; RESP 18; O2SAT 98
== END 2020-04-27 21:02 | disposition home or self-care (01) ==
PROVIDERS: Emergency Provider Physician Assistant; PCP Family Medicine
DX: R10.30 Lower abdominal pain, unspecified (principal); F17.210 Nicotine dependence, cigarettes, uncomplicated
CPT/HCPCS: 74177; 80053; 81001; 84703; 85025; 96374; 96375; 99283; J2270; J2405; Q9967

== ENCOUNTER 2020-06-09 10:44 | Emergency (ER) | payer MEDICAID, SELFPAY ==
[2020-06-09 10:52] VITALS: BP 110/71; PULSE 98; RESP 18; TEMP 36.4; O2SAT 98; BMI 29.2
--- NOTE | 2020-06-09 13:46 | W.ED.EXTPRO ---
HPI - Extremity Problem General: Chief complaint: Extremity Problem,Nontraumatic Stated complaint: BOTH FEET HURTING Time Seen by Provider: 06/09/20 10:56 History of Present Illness: HPI Narrative: Patient states that feet hurt the last couple weeks. Hurts worse when she gets up the morning and puts her feet on the floor. Has been wearing Vans flat soled shoes as lately Complaint: extremity pain Onset (ago): week(s) Pain Consistency: intermittent Location: lower extremity Quality: aching Radiation: none Relieving factors: nothing Exacerbating factors: nothing Associated symptoms: Reports no associated symptoms; Deny chest pain, fever(s) or rash Review of Systems Const: Denies: fever(s), chills or body aches Eyes: Denies: change in vision or blurry vision ENMT: Denies: throat pain or nasal congestion Card: Denies: chest pain or dyspnea on exertion Resp: Denies: dyspnea, productive cough or non-productive cough GI: Denies: abdominal pain, nausea or vomiting Musc: Reports: extremity pain (Both feet hurts in the arches and near the heel worse in morning) Skin/Breast: Denies: rash Neuro: Denies: headache(s) Psych: Denies: anxiety or depression Marcus/Lymph: Denies: easy bruising PFSH ED PFSH: Family History Other No significant active problems No significant family history Social History Smoking and tobacco status: current every day smoker cigarettes Packs smoked per day: 0.25 (3-4 cig/day) Years cigarettes smoked: 14 Physical Exam Const: COMMON NORMALS: no acute distress Extremity: OTHER: Patient has pain in from bilateral heels and in the arch area consistent with a plantar fasciitis type pain no swelling or redness noted arches appear normal. Psych: COMMON NORMALS: mental status grossly normal Course Vital Signs: Vital signs: Vital Signs Temperature 97.6 F 06/09/20 10:52 Pulse Rate 98 06/09/20 10:52 Respiratory Rate 18 06/09/20 10:52 Blood Pressure 110/71 06/09/20 10:52 Pulse Oximetry 98 06/09/20 10:52 Discharge Plan Discharge Patient Disposition: Home Clinical Impression: Plantar fasciitis, bilateral Condition: Stable Prescriptions: New Voltaren 1 % gel 4 g topical QID Qty: 100 RF: 0 No Action Prilosec OTC 20 mg tablet,delayed release (DR/EC) 20 mg PO DAILY Qty: 30 RF: 0 dicyclomine 10 mg capsule 10 mg PO TID Qty: 30 RF: 0 prenat.vits,gunnar,jjc-ntvd-shbae Tablet 1 tab PO DAILY RF: 0 Tylenol Extra Strength 500 mg Tablet 1,000 mg PO PRN RF: 0 ibuprofen 800 mg tablet 800 mg PO TID PRN (Reason: Pain) RF: 0 Discharge Orders: Discharge ED (Routine); Ordered 06/09/20 Ordered By: Min Baeza Referrals: Scott Bernard MD [Primary Care Provider] - Discharge Diet: Usual diet Discharge Activity: Resume usual activity Patient Instructions: Plantar Fasciitis Exercises (GEN), Plantar Fasciitis (ED) Activity Restrictions/Additional Instructions: Follow-up with medical provider as directed. Take medications as prescribed. Return to the ER or your medical provider if condition worsens. Please read and understand discharge instructions. If any questions ask please. Coding Level of Care Code ED Investigations Director for Aniyah Delong
== END 2020-06-09 11:32 | disposition home or self-care (01) ==
PROVIDERS: Emergency Provider Nurse Practitioner Family; PCP Family Medicine
DX: M72.2 Plantar fascial fibromatosis (principal); F17.210 Nicotine dependence, cigarettes, uncomplicated
CPT/HCPCS: 99282

== ENCOUNTER 2020-07-07 10:34 | Emergency (ER) | payer MEDICAID, SELFPAY ==
[2020-07-07 10:35] VITALS: BP 144/87; PULSE 93; RESP 18; TEMP 36.3; O2SAT 95; BMI 29.9
--- NOTE | 2020-07-07 10:41 | XRR_ITS ---
PROCEDURE INFORMATION: Exam: XR Thoracic Spine Exam date and time: 07/07/2020 11:00 AM Age: 24 years old Clinical indication: Pain in thoracic spine; Additional info: Vertebral pain TECHNIQUE: Imaging protocol: XR of the thoracic spine. Views: 3 views. COMPARISON: No relevant prior studies available. FINDINGS: Bones/joints: Normal. No acute fracture. Normal alignment. Soft tissues: Unremarkable. XR/XR thoracic spine 3V* [id number] IMPRESSION: No acute findings.
--- NOTE | 2020-07-07 10:48 | ED_ITS ---
HPI - Back Pain/Injury General: Chief Complaint: Back Pain/Injury Stated Complaint: BACK PAIN Time Seen by Provider: 07/07/20 10:36 History of Present Illness: HPI Narrative: 24-year-old female presents with mid thoracic/vertebral pain. Patient reports that started 3 days ago. She denies any injury. Patient reports she has had lower back pain before but not on the mid back. It gets worse with movement. She reports that she used some heat and warm bath that helped temporarily. She took a muscle relaxant from a prior low back injury with mild relief. Patient denies any numbness tingling. No recent illnesses. Patient reports that she has been doing quite a bit of activity lately. Associated symptoms: Deny abdominal pain, chills, fever(s), nausea or vomiting Review of Systems Const: Denies: fever(s) or chills ENMT: Denies: throat pain Card: Denies: chest pain or palpitations Resp: Denies: dyspnea or productive cough GI: Denies: abdominal pain, nausea or vomiting : Denies: flank pain or difficulty voiding Musc: Reports: back pain Skin/Breast: Denies: rash or pruritus Neuro: Denies: headache(s) PFSH ED PFSH: Family History Other No significant active problems No significant family history Social History Smoking and tobacco status: current every day smoker cigarettes Packs smoked per day: 0.25 (3-4 cig/day) Years cigarettes smoked: 14 Physical Exam Const: COMMON NORMALS: patient oriented x3 and healthy appearing HENMT: COMMON NORMALS: normocephalic and atraumatic HEAD & SCALP: normocephalic and atraumatic Neck/C-Spine: COMMON NORMALS: full ROM Chest: COMMONS NORMALS: normal inspection of the chest Resp: COMMON NORMALS: normal respiratory effort, No retractions, No use of accessory muscles and clear to auscultation bilaterally EFFORT & INSPECTION: Yes able to speak in complete sentences AUSCULTATION: clear to auscultation bilaterally Cardio: COMMON NORMALS: regular rate and regular rhythm RATE: regular rate RHYTHM: regular rhythm GI: COMMON NORMALS: Normal to inspection, nondistended, normoactive bowel sounds present and Soft to palpation PALPATION: Yes Soft to palpation Back/Pelvis: THORACIC SPINE/UPPER BACK: Yes pain with ROM, Yes thoracic spinal tenderness and Yes paraspinal muscle tenderness LUMBAR SPINE/LOWER BACK: Yes normal to inspection, Yes lumbar ROM normal and No pain with ROM Extremity: COMMON NORMALS: full ROM and capillary refill normal Neuro: COMMON NORMALS: patient oriented x3, CN's II-XII intact bilaterally, moves all extremities and no focal motor deficits Psych: COMMON NORMALS: mental status grossly normal and cooperative Skin: COMMON NORMALS: no rashes or lesions noted GENERAL SKIN EXAM: no rashes or lesions noted Course Vital Signs: Vital signs: Vital Signs Temperature 98.7 F 07/07/20 14:16 Pulse Rate 56 L 07/07/20 14:16 Respiratory Rate 18 07/07/20 14:16 Blood Pressure 102/49 07/07/20 14:16 Pulse Oximetry 96 07/07/20 14:16 MDM - Back Pain/Injury MDM Narrative: Medical decision making narrative: Patient with no significant acute findings on CTA, thoracic x-rays and labs. Discussed with patient that she likely has a paraspinal or thoracic strain. She is use anti-inflammatory, I will provide her with a muscle relaxant. She can also use topical lidocaine with menthol. Patient stable and discharged home Differential Diagnosis: Differential diagnosis back pain/injury: Likely thoracic back pain Lab Data: Attestation: I reviewed the patient's lab results. Labs: Lab Results 07/07/20 07/07/20 07/07/20 Range/Units 11:04 11:04 11:04 WBC 7.0 (4.0-10.0) 10^3/ uL RBC 5.05 (4.1-5.3) 10^6/u L Hgb 14.7 (11.5-15.3) g/dL Hct 45.5 (37.0-47.0) % MCV 90.1 (81-99) fL MCH 29.1 (28.0-34.0) pg MCHC 32.3 (30.0-36.0) g/dL RDW 12.7 (12.1-15.1) % Plt Count 379 (130-400) 10^3/c mm MPV 10.8 H (7.4-10.4) fL Neut % (Auto) 59.6 % Lymph % (Auto) 28.8 % [place] % (Auto) 9.1 % Eos % (Auto) 1.7 % Baso % (Auto) 0.7 % Neut # (Auto) 4.14 (1.8-7.7) 10^3/u L Lymph # (Auto) 2.0 (0.8-4.8) 10^3/u L [place] # (Auto) 0.6 (0.2-0.9) 10^3/u L Eos # (Auto) 0.1 (0.0-0.8) 10^3/u L Baso # (Auto) 0.1 (0.0-0.1) 10^3/u L Nucleated RBC % (a uto) 0 % Nucleated RBCs # 0.0 /100WBC ESR 17 H (0-15) mm/hr Sodium Cancelled Potassium Cancelled Chloride Cancelled Carbon Dioxide Cancelled Anion Gap Cancelled BUN Cancelled Creatinine Cancelled GFR Calculation Cancelled Glucose Cancelled Calculated Osmolal ity Cancelled Calcium Cancelled Total Bilirubin Cancelled AST Cancelled ALT Cancelled Alkaline Phosphata se Cancelled C-Reactive Protein Cancelled Total Protein Cancelled Albumin Cancelled Globulin Cancelled HCG, Qual (Negative) 07/07/20 07/07/20 Range/Units 11:20 12:14 WBC (4.0-10.0) 10^3/ uL RBC (4.1-5.3) 10^6/u L Hgb (11.5-15.3) g/dL Hct (37.0-47.0) % MCV (81-99) fL MCH (28.0-34.0) pg MCHC (30.0-36.0) g/dL RDW (12.1-15.1) % Plt Count (130-400) 10^3/c mm MPV (7.4-10.4) fL Neut % (Auto) % Lymph % (Auto) % [place] % (Auto) % Eos % (Auto) % Baso % (Auto) % Neut # (Auto) (1.8-7.7) 10^3/u L Lymph # (Auto) (0.8-4.8) 10^3/u L [place] # (Auto) (0.2-0.9) 10^3/u L Eos # (Auto) (0.0-0.8) 10^3/u L Baso # (Auto) (0.0-0.1) 10^3/u L Nucleated RBC % (a uto) % Nucleated RBCs # /100WBC ESR (0-15) mm/hr Sodium 137 Potassium 4.0 Chloride 103 Carbon Dioxide 26 Anion Gap 12.0 BUN 10 Creatinine 0.8 GFR Calculation 86.7 L Glucose 104 Calculated Osmolal ity 283 L Calcium 8.6 Total Bilirubin 0.3 AST 23 ALT 47 H Alkaline Phosphata se 113 H C-Reactive Protein 4.0 Total Protein 7.3 Albumin 4.3 Globulin 3.0 HCG, Qual Negative (Negative) Imaging Data^: Xray Ortho: My impression: No acute finding CTA Chest: Radiologist's impression: FINDINGS: Pulmonary arteries: There is no pulmonary embolus. Aorta: Unremarkable. No aortic aneurysm. No aortic dissection. Lungs: There is trace interstitial and ground-glass opacity in the lungs that may reflect very mild bronchitis, viral pneumonitis, trace edema and/or atelectasis. There is a 4 mm subpleural ground-glass nodule left lung image 333 not visualized on the prior exam due to adjacent pneumonitis and volume loss on the prior exam. No lobar consolidation. Pleural spaces: Unremarkable. No pneumothorax. No pleural effusion. Heart: Unremarkable. No cardiomegaly. No pericardial effusion. Lymph nodes: Unremarkable. No enlarged lymph nodes. Bones/joints: Unremarkable. No acute fracture. Thoracic vertebral body heights are maintained. Schmorl's nodes in the mid to lower thoracic spine are again identified. No disc bulge or protrusion in the thoracic spine. Soft tissues: Unremarkable. CT/CT angio chest PE protcl [id number] IMPRESSION: 1. There is no pulmonary embolus. 2. There is trace interstitial and ground-glass opacity in the lungs that may reflect very mild bronchitis, viral pneumonitis, trace edema and/or atelectasis. 3. 4 mm subpleural ground-glass nodule left lower lobe.No routine follow-up is indicated. (Reference: Deborah) Discharge Plan Discharge Patient Disposition: Home Clinical Impression: Thoracic back pain Qualifiers: Chronicity: acute Back pain laterality: midline Qualified Code(s): M54.6 - Pain in thoracic spine Condition: Stable Prescriptions: New Naprosyn 500 mg tablet 500 mg PO Q12H Qty: 14 RF: 0 baclofen 5 mg tablet 5 mg PO TID Qty: 10 RF: 0 No Action Prilosec OTC 20 mg tablet,delayed release (DR/EC) 20 mg PO DAILY Qty: 30 RF: 0 dicyclomine 10 mg capsule 10 mg PO TID Qty: 30 RF: 0 Voltaren 1 % gel 4 g topical QID Qty: 100 RF: 0 prenat.vits,gunnar,wba-lzik-ntaze Tablet 1 tab PO DAILY RF: 0 Tylenol Extra Strength 500 mg Tablet 1,000 mg PO PRN RF: 0 ibuprofen 800 mg tablet 800 mg PO TID PRN (Reason: Pain) RF: 0 Discharge Orders: Discharge ED (Routine); Ordered 07/07/20 Ordered By: Cruz Callahan Referrals: Scott Bernard MD [Primary Care Provider] - Discharge Diet: Usual diet Discharge Activity: Increase activity as tolerated Patient Instructions: Thoracic Pain (ED), Back Pain (ED), Opioid Safety Activity Restrictions/Additional Instructions: 4% topical lidocaine with menthol to affected area as directed on package Follow-up with your primary care provider in 2 to 3 days if symptoms or not improving Coding Level of Care Code ED Program Coordinator Executive Education for Chg Fwd Exam Comprehensive
[2020-07-07 11:03] VITALS: BP 144/87; PULSE 78; RESP 18; O2SAT 98
[2020-07-07] MEDS: ketorolac 30 mg/mL INJ IVP (11:05)
[2020-07-07 11:08] LABS: Basophils # 0.1 10^3/uL (0.0-0.1); Basophils % 0.7 %; Eosinophils # 0.1 10^3/uL (0.0-0.8); Eosinophils % 1.7 %; Hematocrit 45.5 % (37.0-47.0); Hemoglobin 14.7 g/dL (11.5-15.3); Lymphocytes % 28.8 %; Mean Corpuscular HGB Conc 32.3 g/dL (30.0-36.0); Mean Corpuscular Hemoglobin 29.1 pg (28.0-34.0); Mean Corpuscular Volume 90.1 fL (81-99); Mean Platelet Volume 10.8 fL (7.4-10.4); Monocytes # 0.6 10^3/uL (0.2-0.9); Monocytes % 9.1 %; Neutrophils # 4.14 10^3/uL (1.8-7.7); Neutrophils % 59.6 %; Nucleated Red Blood Cells % 0 %; Platelet Count 379 10^3/cmm (130-400); Red Blood Count 5.05 10^6/uL (4.1-5.3); Red Cell Distribution Width 12.7 % (12.1-15.1)
[2020-07-07 11:48] LABS: Alanine Aminotransferase 47 U/L (0-33); Albumin Level 4.3 g/dL (3.5-5.2); Alkaline Phosphatase 113 IU/L (35-105); Aspartate Amino Transferase 23 U/L (0-32); Blood Urea Nitrogen 10 mg/dL (6-20); Calcium 8.6 mg/dL (8.5-10.5); Carbon Dioxide 26 mmol/L (22-29); Chloride 103 mmol/L (98-107); Glomerular Filtration Rate 86.7 mL/min (90-130); Glucose 104 mg/dL (65-115); Osmolality Calculated 283 mOsm/kg (285-295); Sodium 137 mmol/L (136-145); Total Bilirubin 0.3 mg/dL (0.15-1.2); Total Protein 7.3 g/dL (6.6-8.7)
[2020-07-07 11:53] LABS: Erythrocyte Sedimentation Rate 17 mm/hr (0-15)
--- NOTE | 2020-07-07 12:03 | CTR_ITS ---
PROCEDURE INFORMATION: Exam: CTA Chest With Contrast Exam date and time: 07/07/2020 12:40 PM Age: 24 years old Clinical indication: Other: Severe thoracic pain TECHNIQUE: Imaging protocol: Computed tomographic angiography of the chest with contrast. 3D rendering (Not supervised by radiologist): MIP and/or 3D reconstructed images were created by the technologist. Radiation optimization: All CT scans at this facility use at least one of these dose optimization techniques: automated exposure control; mA and/or kV adjustment per patient size (includes targeted exams where dose is matched to clinical indication); or iterative reconstruction. Contrast material: OMNI 300; Contrast volume: 75 ml; Contrast route: INTRAVENOUS (IV); COMPARISON: CT angio chest PE protcl [id number] 01/30/2020 10:19 AM RADIATION DOSE METRICS: Total DLP (mGy-cm): 561.2 FINDINGS: Pulmonary arteries: There is no pulmonary embolus. Aorta: Unremarkable. No aortic aneurysm. No aortic dissection. Lungs: There is trace interstitial and ground-glass opacity in the lungs that may reflect very mild bronchitis, viral pneumonitis, trace edema and/or atelectasis. There is a 4 mm subpleural ground-glass nodule left lung image 333 not visualized on the prior exam due to adjacent pneumonitis and volume loss on the prior exam. No lobar consolidation. Pleural spaces: Unremarkable. No pneumothorax. No pleural effusion. Heart: Unremarkable. No cardiomegaly. No pericardial effusion. Lymph nodes: Unremarkable. No enlarged lymph nodes. Bones/joints: Unremarkable. No acute fracture. Thoracic vertebral body heights are maintained. Schmorl's nodes in the mid to lower thoracic spine are again identified. No disc bulge or protrusion in the thoracic spine. Soft tissues: Unremarkable. CT/CT angio chest PE protcl [id number] IMPRESSION: 1. There is no pulmonary embolus. 2. There is trace interstitial and ground-glass opacity in the lungs that may reflect very mild bronchitis, viral pneumonitis, trace edema and/or atelectasis. 3. 4 mm subpleural ground-glass nodule left lower lobe.No routine follow-up is indicated. (Reference: Deborah) REFERENCES: Dwaynehohiren H, et al. Guidelines for Management of Incidental Pulmonary Nodules Detected on CT Images: From the Fleischner Society 2017. Radiology. 2017;284(1):228-243. Radiation Dose CTDIVOL = (mGy): DLP = 561.2 (mGy-cm)
[2020-07-07 12:20] VITALS: RESP 18
[2020-07-07] MEDS: fentaNYL 50 mcg/mL INJ 2mL IVP (12:20)
[2020-07-07 12:24] LABS: HCG Qualitative Urine. Negative (Negative)
[2020-07-07] MEDS: iohexol 350 mg/mL 100 mL Btl IV (12:57)
[2020-07-07 13:00] VITALS: BP 111/59; PULSE 61; RESP 18; O2SAT 100
[2020-07-07 14:16] VITALS: BP 102/49; PULSE 56; RESP 18; TEMP 37.1; O2SAT 96
== END 2020-07-07 14:22 | disposition home or self-care (01) ==
PROVIDERS: Emergency Provider Student in an Organized Health Care Education/Training Program; PCP Family Medicine
DX: M54.6 Pain in thoracic spine (principal); F17.210 Nicotine dependence, cigarettes, uncomplicated
CPT/HCPCS: 36415; 71275; 72072; 80053; 81025; 85025; 85651; 86140; 96374; 96375; 99283; J1885; J3010; Q9967

== ENCOUNTER 2021-01-03 08:32 | Emergency (ER) | payer MEDICAID, SELFPAY ==
[2021-01-03 08:46] VITALS: BP 119/66; PULSE 109; RESP 20; TEMP 36.1; O2SAT 98; BMI 33.6
[2021-01-03 08:55] VITALS: PULSE 98; RESP 20; O2SAT 96
--- NOTE | 2021-01-03 08:56 | W.ED.ABDPA2 ---
HPI - Abdominal Pain General: Chief Complaint: Abdominal Pain Stated Complaint: Back Pain, 13 wks preg Time Seen by Provider: 01/03/21 08:49 History of Present Illness: HPI narrative: 25-year-old female presents emergency room planing of low back pain. She has chronic low back problems. She also is 13 weeks . She denies any dysuria urgency or frequency has not had any vaginal discharge she is evidently been doing some painting yesterday. Initially she was put in with a chief complaint of having abdominal pain. MD elicited complaint: abdominal pain Pertinent past history: other () Onset (ago): hour(s) Pain Consistency: constant Location: Other (Low back) Severity: mild Quality: cramping Radiation: none Migration to: no migration Exacerbating factors: movement Relieving factors: rest Associated Symptoms: Reports GI cramping; Denies anorexia, belching, bloating, change in bowel habits, change in stool character, chills, coffee ground emesis, constipation, diarrhea, dyspepsia, dysuria, excessive flatus, fever(s), heartburn, hematochezia, hematuria, hematemesis, fecal incontinence, loose stools, melena, nausea, poor appetite, syncope and vomiting Related Data: Date of Last Menstrual Period: 09/01/20 Review of Systems Const: Denies: fever(s) or chills ENMT: Denies: throat pain, ear or mastoid pain, nasal discharge or nasal congestion Card: Denies: syncope Resp: Denies: dyspnea, productive cough or non-productive cough GI: Reports: GI cramping; Denies: nausea, vomiting, hematemesis, coffee ground emesis, heartburn, diarrhea, constipation, bloating, belching, excessive flatus, fecal incontinence, change in bowel habits, change in stool character, hematochezia or melena : Denies: dysuria or hematuria Skin/Breast: Denies: rash or pruritus PFSH ED PFSH: Family History Other No significant active problems No significant family history Social History Smoking and tobacco status: current every day smoker cigarettes Packs smoked per day: 0.25 (3-4 cig/day) Years cigarettes smoked: 14 Female Reproductive History: Date of last menstrual period: 09/01/20 : 4 Physical Exam Const: COMMON NORMALS: no acute distress GENERAL APPEARANCE: cooperative and comfortable ORIENTATION/CONSCIOUSNESS: Yes awake, Yes oriented to person, Yes oriented to place and Yes oriented to time HENMT: COMMON NORMALS: normocephalic, atraumatic and hearing grossly normal bilaterally HEAD & SCALP: normocephalic and atraumatic Resp: COMMON NORMALS: normal respiratory effort, No retractions, No use of accessory muscles and clear to auscultation bilaterally AUSCULTATION: clear to auscultation bilaterally Cardio: COMMON NORMALS: regular rate, regular rhythm and No murmurs present (Cardio) RATE: regular rate RHYTHM: regular rhythm GI: COMMON NORMALS: Soft to palpation and No hepatosplenomegaly present AUSCULTATION: Yes normoactive bowel sounds PALPATION: Yes Soft to palpation, No Tenderness to palpation present (GI), No Guarding due to palpation present (GI) and Yes No hepatosplenomegaly present Extremity: COMMON NORMALS: normal to inspection, capillary refill normal, no clubbing, cyanosis or edema, no calf tenderness and no pedal edema Neuro: SENSORIUM/ORIENTATION: Yes oriented to person, Yes oriented to place and Yes oriented to time Skin: COMMON NORMALS: no rashes or lesions noted GENERAL SKIN EXAM: no rashes or lesions noted Course Vital Signs: Vital signs: Vital Signs Temperature 97.0 F L 01/03/21 08:46 Pulse Rate 89 01/03/21 11:30 Respiratory Rate 16 01/03/21 10:14 Blood Pressure 151/82 01/03/21 11:30 Pulse Oximetry 97 01/03/21 11:30 MDM - Abdominal Pain MDM Narrative: Medical decision making narrative: Extensive work-up. Bedside ultrasound shows good motion heart rates estimated to be in the 1 50-1 60 range. Patient reassured. At this point it looks more like musculoskeletal back pain. She not having any bleeding she not having any discharge not really even having any urinary tract symptoms. Some of it could be round ligament pain seems to be more likely to be musculoskeletal pain she did mention that she done some work around the house in the past couple of days. Was able to get a hold of Dr. Bernard he was in agreement with the medications prescribed below. He recommends see the patient next week in his office to be relayed that the patient encouraged her to call for an appointment today. Should any change or problems she can return. Lab Data: Labs: Lab Results 01/03/21 01/03/21 01/03/21 09:20 09:20 09:20 WBC 7.7 10^3/uL 10^3/ uL (4.0-10.0) RBC 4.51 10^6/uL 10^6 /uL (4.1-5.3) Hgb 13.2 g/dL g/dL (11.5-15.3) Hct 40.2 % % (37.0-47.0) MCV 89.1 fl fl (81-99) MCH 29.3 pg pg (28.0-34.0) MCHC 32.8 g/dL g/dL (30.0-36.0) RDW 12.4 % % (12.1-15.1) Plt Count 302 10^3/cmm 10^3 /cmm (130-400) MPV 10.8 fL H fL (7.4-10.4) Neut % (Auto) 80.3 % % Lymph % (Auto) 7.0 % % [place] % (Auto) 11.9 % % Eos % (Auto) 0.1 % % Baso % (Auto) 0.3 % % Neut # (Auto) 6.22 10^3/uL 10^3 /uL (1.8-7.7) Lymph # (Auto) 0.5 10^3/uL L 10^ 3/uL (0.8-4.8) [place] # (Auto) 0.9 10^3/uL 10^3/ uL (0.2-0.9) Eos # (Auto) 0.0 10^3/uL 10^3/ uL (0.0-0.8) Baso # (Auto) 0.0 10^3/uL 10^3/ uL (0.0-0.1) Nucleated RBC % (a uto) 0 % % Nucleated RBCs # 0.0 /100WBC /100W BC Sodium Cancelled Potassium Cancelled Chloride Cancelled Carbon Dioxide Cancelled Anion Gap Cancelled BUN Cancelled Creatinine Cancelled GFR Calculation Cancelled Glucose Cancelled Calculated Osmolal ity Cancelled Calcium Cancelled Total Bilirubin Cancelled AST Cancelled ALT Cancelled Alkaline Phosphata se Cancelled Total Protein Cancelled Albumin Cancelled Globulin Cancelled Lipase Cancelled Ser , Manohar i-Qnt Cancelled Urine Color Urine Appearance Urine pH Ur Specific Gravit y Urine Protein Urine Glucose (UA) Urine Ketones Urine Blood Urine Nitrate Urine Bilirubin Prot Sulfosalicyli c Acd Urine Urobilinogen Ur Leukocyte Maria Eugenia ase 01/03/21 01/03/21 09:31 10:03 WBC RBC Hgb Hct MCV MCH MCHC RDW Plt Count MPV Neut % (Auto) Lymph % (Auto) [place] % (Auto) Eos % (Auto) Baso % (Auto) Neut # (Auto) Lymph # (Auto) [place] # (Auto) Eos # (Auto) Baso # (Auto) Nucleated RBC % (a uto) Nucleated RBCs # Sodium 135 mmol/L L mmol /L (136-145) Potassium 3.5 mmol/L mmol/L (3.5-5.1) Chloride 101 mmol/L mmol/L (98-107) Carbon Dioxide 22 mmol/L mmol/L (22-29) Anion Gap 15.5 (5-19) BUN 3 mg/dL L mg/dL (6-20) Creatinine 0.5 mg/dL mg/dL (0.5-0.9) GFR Calculation 148.0 mL/min H mL /min (90-130) Glucose 76 mg/dL mg/dL (65-115) Calculated Osmolal ity 275 mOsm/kg L mOs m/kg (285-295) Calcium 8.7 mg/dL mg/dL (8.5-10.5) Total Bilirubin 0.2 mg/dL mg/dL (0.15-1.2) AST 15 U/L U/L (0-32) ALT 15 U/L U/L (0-33) Alkaline Phosphata se 85 IU/L IU/L (35-105) Total Protein 6.7 g/dL g/dL (6.6-8.7) Albumin 3.9 g/dL g/dL (3.5-5.2) Globulin 2.8 g/dL g/dL (1.3-4.6) Lipase 14 U/L U/L (13-60) Ser , [place]Qnt 82785.00 mIU/mL m IU/mL Urine Color Straw (Yellow) Urine Appearance Clear (CLEAR) Urine pH 8 H (5-7) Ur Specific Gravit y 1.010 (1.005-1.030) Urine Protein Neg (Negative) Urine Glucose (UA) Norm (Normal) Urine Ketones Negative (Negative) Urine Blood Neg (Negative) Urine Nitrate Negative (Negative) Urine Bilirubin Neg (Negative) Prot Sulfosalicyli c Acd Negative (Negative) Urine Urobilinogen Norm mg/dL mg/dL (Negative) Ur Leukocyte Maria Eugenia ase Negative (Negative) Discharge Plan Discharge Patient Disposition: Home Clinical Impression: Low back pain Condition: Stable Prescriptions: New ibuprofen 800 mg tablet 800 mg PO Q8H PRN (Reason: pain) Qty: 10 RF: 0 cyclobenzaprine 10 mg tablet 10 mg PO TID PRN (Reason: muscle spasm) Qty: 14 RF: 0 Discontinued naproxen [Naprosyn] 500 mg tablet 500 mg PO Q12H Qty: 14 RF: 0 baclofen 5 mg tablet 5 mg PO TID Qty: 10 RF: 0 ibuprofen 800 mg tablet 800 mg PO TID PRN (Reason: Pain) RF: 0 No Action Prilosec OTC 20 mg tablet,delayed release (DR/EC) 20 mg PO DAILY Qty: 30 RF: 0 dicyclomine 10 mg capsule 10 mg PO TID Qty: 30 RF: 0 Voltaren 1 % gel 4 g topical QID Qty: 100 RF: 0 prenat.vits,gunnar,zcl-tdgs-pxtgc Tablet 1 tab PO DAILY RF: 0 Tylenol Extra Strength 500 mg Tablet 1,000 mg PO PRN RF: 0 Discharge Orders: Discharge ED (Routine); Ordered 01/03/21 Ordered By: Jhony Benson Referrals: Scott Bernard MD [Primary Care Provider] - Discharge Diet: Usual diet Discharge Activity: Limit activity as instructed Patient Instructions: Opioid Safety Coding Level of Care Code ED Corporate Securities Research Analyst for Chg Fwd Exam Detailed
[2021-01-03] MEDS: sodium chloride 0.9% 1,000 ML 999 ML IV (09:18)
[2021-01-03 09:32] LABS: Basophils % 0.3 %; Eosinophils % 0.1 %; Hematocrit 40.2 % (37.0-47.0); Hemoglobin 13.2 g/dL (11.5-15.3); Lymphocytes # 0.5 10^3/uL (0.8-4.8); Mean Corpuscular HGB Conc 32.8 g/dL (30.0-36.0); Mean Corpuscular Hemoglobin 29.3 pg (28.0-34.0); Mean Corpuscular Volume 89.1 fl (81-99); Mean Platelet Volume 10.8 fL (7.4-10.4); Monocytes # 0.9 10^3/uL (0.2-0.9); Monocytes % 11.9 %; Neutrophils # 6.22 10^3/uL (1.8-7.7); Neutrophils % 80.3 %; Nucleated Red Blood Cells % 0 %; Platelet Count 302 10^3/cmm (130-400); Red Blood Count 4.51 10^6/uL (4.1-5.3); Red Cell Distribution Width 12.4 % (12.1-15.1); White Blood Count 7.7 10^3/uL (4.0-10.0)
[2021-01-03 09:43] LABS: Add Urine Microscopic? NO; Charge for UA Resulting for Rev
[2021-01-03 10:00] VITALS: BP 113/70; PULSE 102; RESP 20; O2SAT 99
[2021-01-03 10:08] LABS: Bilirubin Urine Neg (Negative); Blood Urine Neg (Negative); Glucose Urine UA Norm (Normal); Ketones Urine Negative (Negative); Leukocyte Esterase Urine Negative (Negative); Nitrate Urine Negative (Negative); Protein Urine Neg (Negative); Sulfosalicylic Acid Urine Negative (Negative); Urine Appearance Clear (CLEAR); Urine Color Straw (Yellow); Urobilinogen Urine Norm (Negative); pH Urine 8 (5-7)
[2021-01-03 10:14] VITALS: RESP 16; O2SAT 99
[2021-01-03] MEDS: morphine 4 mg/mL SDV 1 mL IVP (10:14)
--- NOTE | 2021-01-03 10:49 | PC.NURSE ---
ATTEMPTED FHT UNSUCCESSFUL INFORMED DR. BRENNAN HE VERBALIZED UNDERSTANDING AND NO FURTHER ORDERS.
[2021-01-03 10:52] LABS: Alanine Aminotransferase 15 U/L (0-33); Albumin Level 3.9 g/dL (3.5-5.2); Alkaline Phosphatase 85 IU/L (35-105); Anion Gap 15.5 (5-19); Aspartate Amino Transferase 15 U/L (0-32); Blood Urea Nitrogen 3 mg/dL (6-20); Calcium 8.7 mg/dL (8.5-10.5); Carbon Dioxide 22 mmol/L (22-29); Chloride 101 mmol/L (98-107); Globulin 2.8 g/dL (1.3-4.6); Glucose 76 mg/dL (65-115); Lipase 14 U/L (13-60); Osmolality Calculated 275 mOsm/kg (285-295); Potassium 3.5 mmol/L (3.5-5.1); Sodium 135 mmol/L (136-145); Total Bilirubin 0.2 mg/dL (0.15-1.2); Total Protein 6.7 g/dL (6.6-8.7)
[2021-01-03 11:30] VITALS: BP 151/82; PULSE 89; O2SAT 97
[2021-01-03] MEDS: ketorolac 30 mg/mL INJ 15 MG IVP (11:58)
--- NOTE | 2021-01-03 11:58 | PC.NURSE ---
ASKED DR. BRENNAN IF HE DID WANT 15MG OF TORADOL ADM VIA IV. HE STATED, YES IT'S SAFE TO GIVE IN THE SECOND TRIMESTER OF .
== END 2021-01-03 12:07 | disposition home or self-care (01) ==
PROVIDERS: Emergency Provider Family Medicine; PCP Family Medicine
DX: M54.50 Low back pain, unspecified (principal); F17.210 Nicotine dependence, cigarettes, uncomplicated
CPT/HCPCS: 36415; 80053; 81003; 83690; 84702; 85025; 96361; 96374; 96375; 99284; J1885; J2270; J7030

== ENCOUNTER 2021-02-05 11:53 | Outpatient (RCR) | payer MEDICAID, SELFPAY | END 2021-02-21 23:59 | disposition home or self-care (01) | LOC: SPT 11:53 | PROVIDERS: PCP Family Medicine; Referring Provider Family Medicine; Visit Provider Family Medicine | DX: O99.891 Other specified diseases and conditions complicating pregnancy (principal) | CPT/HCPCS: 97161 ==

== ENCOUNTER 2021-02-22 06:00 | Outpatient (RCR) | payer MEDICAID, SELFPAY | END 2021-03-24 23:59 | disposition home or self-care (01) | LOC: SPT 06:00 | PROVIDERS: PCP Family Medicine; Referring Provider Family Medicine; Visit Provider Family Medicine | DX: O99.891 Other specified diseases and conditions complicating pregnancy (principal) | CPT/HCPCS: 97110 ==

== ENCOUNTER 2021-03-20 18:35 | Outpatient (CLI) | payer MEDICAID, SELFPAY ==
[2021-03-20 18:49] VITALS: BP 107/63; PULSE 93
[2021-03-20 18:51] VITALS: TEMP 36.4
[2021-03-20 19:06] VITALS: BP 117/67; PULSE 86
[2021-03-20 19:12] VITALS: RESP 16
[2021-03-20 19:16] VITALS: BMI 35.0
[2021-03-20 19:21] VITALS: BP 116/74; PULSE 85
[2021-03-20 20:32] VITALS: BP 116/74; PULSE 85
== END 2021-03-20 19:28 | disposition home or self-care (01) ==
LOC: OPOB 18:40 → OBGYN 18:41
PROVIDERS: PCP Family Medicine; Visit Provider Family Medicine
DX: O26.899 Other specified pregnancy related conditions, unspecified trimester (principal); Z3A.00 Weeks of gestation of pregnancy not specified; R10.9 Unspecified abdominal pain
CPT/HCPCS: 99211

== ENCOUNTER 2021-05-06 18:12 | Emergency (ER) | payer MEDICAID, SELFPAY ==
[2021-05-06 18:23] VITALS: BP 110/71; PULSE 99; RESP 18; TEMP 36.7; O2SAT 99; BMI 35.0
--- NOTE | 2021-05-06 18:48 | W.ED.GENADLT ---
HPI - General Adult General: Chief complaint: Fall Stated complaint: Injury Fell Twice-Upper and Lower Back Time Seen by Provider: 05/06/21 18:34 History of Present Illness: 25-year-old female who is currently 31 weeks presenting to the emergency room after fall from 3 feet. Patient was standing on a stool when she fell backward onto her butt and back. Patient complains of paraspinal lumbar and sacral area pain. Patient has no bladder or bowel incontinence, lower extremity weakness. Patient is able to ambulate without difficulty. Denies any anticoagulation use. No other focal pain. No abdominal pain, regular contraction or vaginal bleeding. Patient denies LOC or head injury. Patient has been ambulating any difficulty. Onset: 1 hr ago Duration:1 hr Location:home Severity:moderate Associated symptoms: Deny chest pain, dyspnea, nausea, rash, palpitations or vomiting Review of Systems Const: Denies: fever(s) or chills Eyes: Denies: change in vision ENMT: Denies: mouth pain Card: Denies: chest pain or palpitations Resp: Denies: dyspnea or non-productive cough GI: Denies: abdominal pain, nausea, vomiting or diarrhea : Denies: dysuria Musc: Reports: other (+lumbar and sacral back pain); Denies: extremity pain Skin/Breast: Denies: rash or new lesions Neuro: Denies: weakness in extremities Psych: Reports: other (Normal mood) Marcus/Lymph: Denies: easy bruising [facility] ED PFSH: Family History Other No significant active problems No significant family history Social History Smoking and tobacco status: current every day smoker cigarettes Packs smoked per day: 0.25 (3-4 cig/day) Years cigarettes smoked: 14 Female Reproductive History: Date of last menstrual period: 09/01/20 Physical Exam Const: COMMON NORMALS: alert HENMT: COMMON NORMALS: atraumatic HEAD & SCALP: atraumatic MOUTH: moist mucous membranes not abnormal Eye: COMMON NORMALS: EOMs intact bilaterally and conjunctivae normal CONJUNCTIVA: Yes conjunctivae normal Neck/C-Spine: COMMON NORMALS: full ROM and supple Resp: COMMON NORMALS: normal respiratory effort and clear to auscultation bilaterally AUSCULTATION: clear to auscultation bilaterally Cardio: COMMON NORMALS: regular rate RATE: regular rate GI: COMMON NORMALS: Soft to palpation and non-tender PALPATION: Yes Soft to palpation Back/Pelvis: OTHER: +paraspinal lumbar tenderness and mild sacral tenderness to palpation, no midline tenderness no sacral area nnumbness Extremity: COMMON NORMALS: full ROM OTHER: 5/5 strength in lower extremities Neuro: SENSORIUM/ORIENTATION: Yes alert MOTOR EXAM: No Abnormal motor strength present and Other motor observations present (no focal motor deficits) Psych: COMMON NORMALS: speech normal SPEECH: Yes normal speech MOOD & AFFECT: Yes euthymic mood Course Vital Signs: Vital signs: Vital Signs Temperature 98.1 F 05/06/21 19:00 Pulse Rate 99 05/06/21 19:00 Respiratory Rate 18 05/06/21 19:00 Blood Pressure 110/71 05/06/21 19:00 Pulse Oximetry 99 05/06/21 19:00 MDM - General Adult Medical Decision Making 25-year-old female presenting to the emergency room after an episode of fall from 3 feet. Patient landed on her butt and her back. Patient denies any LOC or other injuries. Patient has paraspinal lumbar and sacral area tenderness. Patient has no midline tenderness, saddle anesthesia, no bladder or bowel incontinence, no lower extremity weakness or numbness. Findings were not consistent with traumatic cord compression. I have performed shared decision making with patient for imaging during . As patient only had paraspinal tenderness, my suspicion for acute fracture is low. I offered x-ray evaluation, however patient declined because she is 31 weeks . I have explained to the patient that although her risk for traumatic sacral/lumbar area injury is low, she should come back to the emergency room and obtain evaluation should she have any worsening pain, spinal cord compression, or any new concerning complaints. Since patient had a fall in the setting of third trimester , patient will need to go to the OB floor for further evaluation. Pain improved with Tylenol. Patient is able to ambulate without any difficulty. Disposition: OB floor Discharge Plan Discharge Patient Disposition: Home Clinical Impression: Back pain, , Fall Condition: Stable Prescriptions: New acetaminophen 500 mg tablet 500 mg PO Q6H PRN (Reason: pain) 5 Days Qty: 20 0RF Discharge Orders: Discharge ED (Routine); Ordered 05/06/21 Ordered By: Sohail Bey Referrals: Scott Bernard MD [Primary Care Provider] - Discharge Diet: Advance as tolerated Discharge Activity: Increase activity as tolerated Patient Instructions: Back Pain (ED) Activity Restrictions/Additional Instructions: Please come back to the emergency room your pain worsens, if you have any weakness in your legs, difficulty peeing or pooping, numbness in your groin, or any new concerning complaints. Coding Level of Care Code ED Garden Equipment Mechanic for Chg Fwd Exam Comprehensive
[2021-05-06 19:00] VITALS: BP 110/71; PULSE 99; RESP 18; TEMP 36.7; O2SAT 99
== END 2021-05-06 19:01 | disposition home or self-care (01) ==
PROVIDERS: Emergency Provider Emergency Medicine; PCP Family Medicine
DX: O26.893 Other specified pregnancy related conditions, third trimester (principal); M54.50 Low back pain, unspecified; Z3A.31 31 weeks gestation of pregnancy; W11.XXXA Fall on and from ladder, initial encounter; O99.333 Smoking (tobacco) complicating pregnancy, third trimester; F17.210 Nicotine dependence, cigarettes, uncomplicated
CPT/HCPCS: 99281

== ENCOUNTER 2021-05-06 18:58 | Outpatient (CLI) | payer MEDICAID, SELFPAY ==
[2021-05-06 18:58] VITALS: BMI 35.2
[2021-05-06 19:15] VITALS: BP 99/63; PULSE 95; TEMP 36
[2021-05-06 19:42] VITALS: BP 103/59; PULSE 81
== END 2021-05-06 19:56 | disposition home or self-care (01) ==
LOC: OPOB 19:05 → OBGYN 19:10
PROVIDERS: PCP Family Medicine; Visit Provider Family Medicine
DX: O26.899 Other specified pregnancy related conditions, unspecified trimester (principal); Z3A.00 Weeks of gestation of pregnancy not specified; M54.9 Dorsalgia, unspecified; Z91.81 History of falling
CPT/HCPCS: 59025; 99211

== ENCOUNTER 2021-05-07 09:52 | Outpatient (CLI) | payer MEDICAID, SELFPAY ==
--- NOTE | 2021-05-07 10:18 | USCV_ITS ---
Daxa Kim Age: 25 Gender: F : 1995 Exam Date: 05/07/2021 10:29 Ordering Phys: Scott Bernard MD Technologist: Zack Pham Exam Location: [facility] [place] Indication: maternal cardiomyopathy BP: 123 / 70 HR: 95 Rhythm: Sinus Technical Quality: Adequate MEASUREMENTS (Male / Female) Normal Values 2D ECHO LV Diastolic Diameter PLAX 4.3 cm 4.2 - 5.9 / 3.9 - 5.3 cm LV Systolic Diameter PLAX 3.2 cm IVS Diastolic Thickness 0.8 cm 0.6 - 1.0 / 0.6 - 0.9 cm IVS Systolic Thickness 1.2 cm LVPW Diastolic Thickness 1.3 cm 0.6 - 1.0 / 0.6 - 0.9 cm LVPW Systolic Thickness 1.3 cm LVOT Diameter 2.0 cm LV Ejection Fraction 2D Teich 48.7 % LV Ejection Fraction MOD 2C 59.7 % LV Ejection Fraction 2C AL 58.9 % LA Diameter 3.2 cm LA Width 3.7 cm LA Height 3.7 cm RA Width 3.3 cm RA Height 4.0 cm Aorta at Sinotubular Diameter 2.0 cm M-MODE Aortic Annulus Diameter 2.5 cm LA Ao Ratio MM 1.2 MV E Point Septal Separation 0.9 cm DOPPLER AV Peak Velocity 170.0 cm/s LVOT Peak Velocity 96.0 cm/s AV Area Cont Eq vti 2.2 cm squared AV Area Cont Eq pk 1.8 cm squared MV Area PHT 3.7 cm squared Mitral E to A Ratio 1.0 MV E' Velocity 44.5 cm/s Mitral E to MV E' Ratio 6.4 Mitral E to LV E' Lateral Ratio 6.2 Mitral E to LV E' Septal Ratio 6.7 TR Peak Velocity 315.6 cm/s TR Peak Gradient 39.8 mmHg TR Mean Velocity 273.6 cm/s TR Mean Gradient 29.8 mmHg TR Velocity Time Integral 77.5 cm Right Atrial Pressure 3.0 mmHg Pulmonary Artery Systolic Pressu 42.8 mmHg RV Acceleration Time 0.1 s RV Ejection Time 0.3 s RV AcT/ET 0.3 FINDINGS Left Ventricle Normal left ventricular size. LV systolic function is normal with EF of 50-55%. No regional wall motion abnormalities. Diastolic function is normal Right Ventricle The right ventricle is normal in size and function. Right Atrium The right atrium is normal in size. Left Atrium The left atrium is normal in size. Mitral Valve Mitral valve is thickened without significant stenosis or prolapse. There is mild mitral regurgitation. Aortic Valve Grossly normal without significant stenosis. There is no aortic regurgitation. Tricuspid Valve Structurally normal tricuspid valve without significant stenosis or regurgitation. Insufficient TR jet to calculate RVSP Pulmonic Valve Not well visualized Pericardium Normal pericardium without effusion. Aorta Normal ascending aorta dimension. CONCLUSIONS LV systolic function is normal with EF of 50-55% Diastolic function is normal Mild mitral regurgitation Compared to prior echocardiogram from 01/30/2020, no significant changes are seen Sg Akers MD (Electronically Signed) Final Date: 07 May 2021 18:11 S
== END 2021-05-07 09:53 | disposition home or self-care (01) ==
PROVIDERS: PCP Family Medicine; Visit Provider Family Medicine
DX: O09.899 Supervision of other high risk pregnancies, unspecified trimester (principal); I34.0 Nonrheumatic mitral (valve) insufficiency
CPT/HCPCS: 93306

== ENCOUNTER 2021-06-18 14:02 | Outpatient (CLI) | payer MEDICAID, SELFPAY ==
--- NOTE | 2021-06-18 14:11 | US_ITS ---
WS: [id number] BIOPHYSICAL PROFILE AMNIOTIC FLUID HISTORY: GESTATIONAL DIABETES COMPARISON: 03/04/2021 Cardiac activity: 150 bpm. Cervix: Obscured by the head which is deep within the pelvis. Placenta: Anterior, no previa or abruption. Placenta grade: 1 Parameters are as follows: Breathin Movement: 2 Tone: 2 Fluid volume: 2 Amniotic fluid index: 13.5 cm; near the 50th percentile. Largest vertical pocket of amniotic fluid 4. 5 cm. US/US OB BPP wo NST 54989 IMPRESSION: 1. Biophysical profile score: 8/8. 2. Normal cardiac activity. 3. Normal amniotic fluid index.
== END 2021-06-18 14:03 | disposition home or self-care (01) ==
LOC: RAD 14:03
PROVIDERS: PCP Family Medicine; Visit Provider Family Medicine
DX: O24.419 Gestational diabetes mellitus in pregnancy, unspecified control (principal); Z3A.00 Weeks of gestation of pregnancy not specified
CPT/HCPCS: 76819

== ENCOUNTER 2021-06-22 13:00 | Outpatient (CLI) | payer MEDICAID, SELFPAY ==
[2021-06-22 13:00] VITALS: BMI 37.2
[2021-06-22 13:18] VITALS: BP 133/66; PULSE 97; RESP 18; TEMP 36.6
[2021-06-22 13:38] VITALS: BP 108/64; PULSE 85
[2021-06-22 13:50] VITALS: BP 108/64; PULSE 85
[2021-06-22 17:22] LABS: Nitrazine Paper, PH Negative
== END 2021-06-22 13:50 | disposition home or self-care (01) ==
LOC: OPOB 13:07 → OBGYN 13:07
PROVIDERS: PCP Family Medicine; Visit Provider Family Medicine
DX: O24.419 Gestational diabetes mellitus in pregnancy, unspecified control (principal); Z3A.00 Weeks of gestation of pregnancy not specified
CPT/HCPCS: 59025; 83986; 99211

== ENCOUNTER 2021-06-26 15:02 | Inpatient (IN) | payer MEDICAID, SELFPAY ==
[2021-06-26] VITALS (86 sets, daily range): BP systolic 105–144; BP diastolic 56–91; PULSE 65–98; RESP 16–17; TEMP 35.7–37; O2SAT 93–100; BMI 37.2
[2021-06-26 15:54] LABS: Glucose Point of Care 85 mg/dL (70-110)
[2021-06-26] MEDS: lactated ringers 1,000 ML 999 ML IV ×2 (16:10→17:18)
[2021-06-26] MEDS: fentaNYL 50 mcg/mL INJ 2mL IVP (16:10)
[2021-06-26 16:25] LABS: Basophils % 0.1 %; Eosinophils % 0.1 %; Hematocrit 37.8 % (37.0-47.0); Hemoglobin 12.4 g/dL (11.5-15.3); Lymphocytes # 1.8 10^3/uL (0.8-4.8); Lymphocytes % 13.5 %; Mean Corpuscular HGB Conc 32.8 g/dL (30.0-36.0); Mean Corpuscular Hemoglobin 28.6 pg (28.0-34.0); Mean Corpuscular Volume 87.1 fl (81-99); Mean Platelet Volume 11.8 fL (7.4-10.4); Monocytes # 1.2 10^3/uL (0.2-0.9); Monocytes % 8.7 %; Neutrophils # 10.43 10^3/uL (1.8-7.7); Neutrophils % 77.4 %; Nucleated Red Blood Cells % 0 %; Platelet Count 329 10^3/cmm (130-400); Red Blood Count 4.34 10^6/uL (4.1-5.3); Red Cell Distribution Width 13.8 % (12.1-15.1); White Blood Count 13.5 10^3/uL (4.0-10.0)
--- NOTE | 2021-06-26 17:20 | ANES.PREANE2 ---
Pre-Anesthetic Assessment Height/Weight: Height 1.63 m Weight 98.43 kg Temp Pulse Resp BP 97.3 F L 87 16 136/83 06/26/21 10:52 06/26/21 16:51 06/26/21 16:10 06/26/21 16:51 Preop Diagnosis: labor pain epidural Familial anesthetic complications: none Social Tobacco and No alcohol Exam alert, oriented x 3, clear to auscultation bilaterally and regular rate & rhythm Airway Submandibular: within normal limits Cervical ROM: within normal limits Mallampati: Class II Dentition: full Pulmonary None reported CV/HEM None reported None reported Hepatic None reported GI None reported Metabolic Diabetes Mellitus (gestational) Musc/skel None reported Neuropsych Headache Anesthetic Plan ASA status: 2 Anesthesia: Regional (specify below) Risk of > 500 ml blood loss (7ml/kg in children): No Medications/Allergies Allergies Allergy/AdvReac Type Severity Reaction Status Date / Time No Known Allergies Allergy Verified 05/06/21 20:40 Current Medications Generic Name Dose Route Start Last Admin Trade Name Freq PRN Reason Stop Dose Admin Fentanyl 25 - 100 mcg 06/26/21 15:00 06/26/21 16:10 Fentanyl 50 Mcg/Ml Inj 2ml IVP 25 mcg Q1H PRN Administration SEVERE PAIN Lactated Ringer's 1,000 mls @ 999 mls/hr 06/26/21 15:00 06/26/21 17:18 Lactated Ringers IV 999 mls/hr .Q1H1M PRN Administration Per L&D Rescitation Protocol Lactated Ringer's 1,000 mls @ 999 mls/hr 06/26/21 15:59 06/26/21 16:10 Lactated Ringers IV 999 mls/hr .Q1H1M PRN Administration See label comments [facility] Anesthesia Family History Other No significant active problems No significant family history Social History Smoking and tobacco status: current every day smoker cigarettes Packs smoked per day: 0.25 (3-4 cig/day) Years cigarettes smoked: 14 Female Reproductive History Date of last menstrual period: 09/01/20 : 3 Data Anesthesia : 06/26/21 15:45 Short CBC 06/26/21 Range/Units 15:45 WBC 13.5 H (4.0-10.0) 10^3/uL Hgb 12.4 (11.5-15.3) g/dL Hct 37.8 (37.0-47.0) % MCV 87.1 (81-99) fl Plt Count 329 (130-400) 10^3/cmm Neut % (Auto) 77.4 % Neut # (Auto) 10.43 H (1.8-7.7) 10^3/uL Cardiac Studies: Echocardiogram 05/07/21 Echocardiogram Ultrasound 01/30/20
--- NOTE | 2021-06-26 17:51 | P.ANES_ITS ---
Anesthesia Procedures Procedure/Date: 06/26/21 epidural Procedure Narrative: epidural complete, bolus given, epidural pump initiated with CONDITIONER TENDER education given, vitals taken during procedure using OBIX system and satisfactory throughout, patient admits to decrease pain, report of procedure to OB RN Epidural: Time Out Performed: Yes Consents Signed: Procedure Consent Consent: requested by attending/covering physician, from patient, risks and benefits reviewed and patient agrees to proceed Lumbar Level: L3-L4 Epidural position: sitting Epidural procedure: sterile prep of area, 1% lidocaine to numb the area (3 mL), 18 g needle, negative for paresthesia passed, neg for paresthesia, test dose given, 1.5% xylocaine 1:200k epi (5 mL), 0.2% Ropivacaine bolus ml (5 mL), placed PCEA, no systemic response, sterile dressing applied, L.U.D. no apparent complications and 0.2% Ropiavacaine @ mls/hr (13 mL/hr)
[2021-06-26 19:26] LABS: Amphetamines Screen Urine Negative (Negative); Barbiturates Screen Urine Negative (Negative); Benzodiazepines Screen Urine Negative (Negative); Cocaine Screen Urine Negative (Negative); Opiate Screen Urine Negative (Negative); PCP Screen Urine Negative (Negative); THC Screen Urine Negative (Negative)
[2021-06-26] MEDS: ondansetron 2 mg/ML SDV 2 mL 4 MG IVP (19:43)
[2021-06-26] MEDS: oxytocin 30 UNIT/500 ML BAG 600 UNIT IV (20:53)
--- NOTE | 2021-06-26 21:06 | P.HPUD_ITS ---
Labor & Delivery H&P Update Date of Procedure: June 26, 2021 Date H&P Performed: 06/25/21 Changes to previous documentation: On admission the patient cervix was dilated to 3 cm with consistent contractions. Admission Diagnosis: 1. 25-year-old 3 para 2-0-0-2 at 38 weeks estimated gestational age presenting in active labor 2. Desires sterilization 3. Diet-controlled gestational diabetes mellitus Preop diagnosis: labor pain Planned procedure: Spontaneous vaginal delivery and a tubal ligation Other information: The patient is a 25-year-old female who has had a relatively unremarkable . She tested positive for gestational diabetes, and has had good control without medications or insulin. Otherwise her labs were largely unremarkable. Her blood type is O+. Her antibody screen was negative. She did have an early drug screen that was positive for THC. She vehemently denies any marijuana use and subsequent drug screens were also negative. Her rubella was immune. She was GBS negative. The remainder of her labs were within normal limits. 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 Her ejection fraction was maintained throughout. Her symptoms resolved within 24 hours. A follow-up echocardiogram done during this demonstrated a healthy heart with appropriate ejection fraction. She has had no heart symptoms during this . We have discussed the patient's desire for sterilization earlier in her . Because of her history of ru cardiomyopathy, she is concerned about any future pregnancies and her health. We discussed the risks of bleeding, infection, and damage to intra-abdominal organs. We also discussed a 1-200 chance becoming again. She also understands is an increased risk of ectopic as well. Related Problem List Diagnoses (1) GDM (gestational diabetes mellitus): Due to the patient's excellent control, we will start by checking her blood sugars 4 times daily, but will change that to twice daily if her blood sugars appear to be appropriate. (2) History of maternal cardiomyopathy, currently in third trimester: No further diagnostics are required at this time. If we see any symptoms related to repeated cardiomyopathy, we will have a quick trigger to begin a wo rk-up and treatment. (3) 38 weeks gestation of : I anticipate a routine labor. The baby has been measuring within normal limits with her baby's head being smaller than average. I do not anticipate macrosomia.
--- NOTE | 2021-06-26 21:14 | P.PCNOB_ITS ---
Delivery Note: Date of delivery: June 26, 2021 Pre-delivery diagnoses: 1. 25-year-old 3 para 2-0-0-2 at 38 weeks estimated gestational age presenting in active labor 2. Diet-controlled gestational diabetes 3. History of peripartum cardiomyopathy Post-delivery diagnoses: Status post spontaneous vaginal delivery Procedure: Spontaneous vaginal delivery Delivering Physician: Scott Bernard Findings: 50 Pre-Delivery Course: The patient presented to the hospital having consistent contractions less than every 5 minutes. She was making cervical change. An epidural was placed. An amniotomy was performed. She progressed to complete without difficulty. Delivery: DELIVERY: The patient progressed to complete without difficulty. She delivered a female with a weight of 7 pounds 5 ounces with Apgars of 9, 9. The baby was delivered from the JUAN MIGUEL position and placed on the mother's abdomen. The cord was then clamped and cut 1 minute after delivery. There was a nuchal cord x1. There was terminal meconium. But no meconium noted in the amniotic fluid prior to delivery. The placenta and 3 vessel cord were delivered intact shortly thereafter. The perineum and vaginal vault were carefully examined. No lacerations were noted. Both the mother and the baby were in stable condition. A&P Assessment and plan (1) 38 weeks gestation of : Anticipated tubal ligation . I also anticipate good control of her blood sugars. We will check them twice daily given her excellent numbers so far. Status: Acute (2) History of maternal cardiomyopathy, currently in third trimester: Status: Acute (3) GDM (gestational diabetes mellitus): Status: Acute (4) (spontaneous vaginal delivery): Status: Acute Coding Level of Care Code Acute Broadcast Maintenance Engineer for Chg Fwd Diagnoses 38 weeks gestation of Z3A.38 History of maternal cardiomyopathy, currently in third trimester O09.893 GDM (gestational diabetes mellitus) O24.419 (spontaneous vaginal delivery) O80
[2021-06-26] MEDS: HYDROcodone-acetaminophen 5-325 mg Tablet PO (23:11)
[2021-06-26] MEDS: benzocaine-menthol 78 gm Canister 1 SPRAY TOPICAL (23:12)
[2021-06-26] MEDS: lanolin oint 7 gm 1 APPLIC TOPICAL (23:12)
[2021-06-27] VITALS (18 sets, daily range): BP systolic 111–129; BP diastolic 62–87; PULSE 69–97; RESP 14–18; TEMP 36.4–37; O2SAT 92–98
[2021-06-27] MEDS: HYDROcodone-acetaminophen 5-325 mg Tablet PO ×3 (04:51→18:18)
--- NOTE | 2021-06-27 07:00 | PM.OBGYPN ---
ORNAMENTAL METAL WORKER APPRENTICE Subjective Subjective: Interval history: The patient has done well . She is breast-feeding well. Her bleeding has been within normal limits. Her pain is been controlled with ibuprofen and [place]. She has had no cardiac symptoms. Labor: Station: +2 Amniotic Membrane Status: Intact Monitor Mode: Palpation Contraction Pattern: Regular Status: Category I Vitals/I&O/Wt Last Vital Signs Temp 98.0 F 06/27/21 04:53 Pulse 73 06/27/21 04:53 Resp 16 06/27/21 03:30 BP 120/82 06/27/21 04:53 Pulse Ox 98 06/27/21 04:53 06/26/21 06/27/21 06/27/21 22:59 06:59 14:59 Intake Total 500 / 500 Output Total 400 / 400 1600 / 2000 Balance -400 / -400 -1100 / -1500 Weight last 48 hrs Weight 217 lb Physical Exam Narrative: The patient is alert. She appears comfortable. Her heart has a regular rate and rhythm with no murmurs appreciated. Lungs are clear to auscultation bilaterally. Her fundus is firm and below the umbilicus. Urinary Catheter Management: Thompson Latex: Cath Placed During This Visit: yes, but has since been removed by the nurse Reason for Continuing Indwelling Catheter: Decision to DC Catheter Urinary Catheter Date of Insertion: 06/26/21 Urinary Catheter Time of Insertion: 18:25 Date Urinary Catheter Removed: 06/26/21 Time Urinary Catheter Discontinued: 20:48 Data : 06/26/21 15:45 A&P Assessment and plan (1) (spontaneous vaginal delivery): Status: Acute (2) 38 weeks gestation of : Status: Acute (3) GDM (gestational diabetes mellitus): Her blood sugars have been within normal limits Status: Acute (4) History of maternal cardiomyopathy, currently in third trimester: Status: Acute (5) Sterilization consult: We once again discussed her desire for tubal ligation this morning. We once again discussed the risks. She had no further questions and reiterated the fact that she is sure she wants to have this done. Status: Acute Attestations Medical Necessity Statement*: Routine and post tubal ligation care. She may be kept an extra day to monitor her were carefully due to her history of peripartum cardiomyopathy. Coding Level of Care Code Acute Mud Logger for Chg Fwd Diagnoses (spontaneous vaginal delivery) O80 38 weeks gestation of Z3A.38 GDM (gestational diabetes mellitus) O24.419 History of maternal cardiomyopathy, currently in third trimester O09.893 Sterilization consult Z30.09
--- NOTE | 2021-06-27 07:24 | ANE.PACU2 ---
Inpatient post-anesthesia follow up: Airway intact: Yes Vital signs: Temperature 98.4 F Pulse Rate 73 Respiratory Rate 16 Blood Pressure 115/78 Pulse Oximetry 96 Oxygen Delivery Me thod Room Air Oxygen Flow Rate Fraction of Inspir ed Oxygen Hydration adequate: Yes Nausea and vomiting: No Pain level: 2 Mental status: Baseline
[2021-06-27] MEDS: prenatal vitamin Capsule 1 CAP PO (08:33)
[2021-06-27] MEDS: docusate sodium 100 mg Capsule PO ×2 (08:33→18:04)
[2021-06-27] MEDS: ibuprofen 800 mg tablet PO ×3 (08:33→21:03)
--- NOTE | 2021-06-27 09:30 | PC.NURSE ---
Report handed off to Sharlene Joel RN from Surgery.
[2021-06-27 10:00] LABS: Hematocrit 37.4 % (37.0-47.0); Mean Corpuscular HGB Conc 32.1 g/dL (30.0-36.0); Mean Corpuscular Hemoglobin 28.1 pg (28.0-34.0); Mean Corpuscular Volume 87.6 fl (81-99); Mean Platelet Volume 11.8 fL (7.4-10.4); Platelet Count 307 10^3/cmm (130-400); Red Blood Count 4.27 10^6/uL (4.1-5.3); Red Cell Distribution Width 13.8 % (12.1-15.1); White Blood Count 13.7 10^3/uL (4.0-10.0)
--- NOTE | 2021-06-27 10:10 | P.ANESUD_ITS ---
Pre-Anesthetic Update Pre-Anesthetic Assessment: Date of Surgery/Procedure: 06/27/21 Preop Vianca gnosis: labor pain Proposed Procedure: Operation Date: 06/27/21 10:20 Proposed Procedures p Bilateral Tubal Ligation(Not Applicable) - Scott Bernard MD Operation Date: 06/27/21 10:30 Proposed Procedures p Post Bilateral Tubal Ligation(Bilateral) - Scott Bernard MD Any changes to Pre-Anesthetic Assessment?: No Last Intake: 23:00 Labs Last 48hrs: Short CBC 06/26/21 06/27/21 Range/Units 15:45 09:50 WBC 13.5 H 13.7 H (4.0-10.0) 10^3/ uL Hgb 12.4 12.0 (11.5-15.3) g/dL Hct 37.8 37.4 (37.0-47.0) % MCV 87.1 87.6 (81-99) fl Plt Count 329 307 (130-400) 10^3/c mm Neut % (Auto) 77.4 % Neut # (Auto) 10.43 H (1.8-7.7) 10^3/u L Vitals: Temperature 98.4 F 06/27/21 07:05 Temperature Source Oral 06/27/21 07:05 Pulse Rate 73 06/27/21 07:05 Respiratory Rate 16 06/27/21 03:30 Respiratory Effort Non-Labored 06/27/21 08:00 Respiratory Depth Normal 06/27/21 08:00 Respiratory Patter n 06/27/21 08:00 Blood Pressure 115/78 06/27/21 07:05 Blood Pressure Renuka n 90 06/27/21 07:05 Blood Pressure Pos ition Semi Fowlers 06/27/21 07:05 Pulse Oximetry 96 06/27/21 07:05 Oxygen Delivery Me thod 06/27/21 07:05 Exam: Pre-Anes Outpt Exam: alert, oriented x 3, clear to auscultation bilaterally and regular rate & rhythm Additional Exam Findings (including area of procedure): Pt declined option of spinal Cardiac Studies: Echocardiogram 05/07/21 Echocardiogram Ultrasound 01/30/20
--- NOTE | 2021-06-27 12:15 | PM.OP ---
Operative Report Date of procedure: June 27, 2021 Pre-op diagnosis: 25-year-old female desiring sterilization Post-op diagnosis: Status post bilateral tubal ligation Procedure done: minilaparotomy bilateral tubal ligation using a modified Ana technique Specimens removed/disposition: Bilateral fallopian tube segments with the right segment being tagged Pathology: Bilateral fallopian tube segments with the right segment being tagged Surgeon: Scott Bernard Estimated blood loss: Less than 5 ml Procedure: The patient was brought back to the operating room where anesthesia was found to be adequate. 10 mL of 0.5% bupivacaine was then used to pre-anesthetize the area just inferior to the umbilicus. A #15 blade was then used to make a 3 cm transverse incision just inferior to the umbilicus. I then dissected down to the underlying subcutaneous tissue until arriving at the fascia. The fascia was then nicked with the scalpel. The fascial incision was extended manually. I identified the fundus of the uterus and followed it to the left fallopian tube. The fallopian tube was then followed to the fimbria. The tube was then ligated, cut, and cauterized in a modified [place] fashion using 0 chromic. The right fallopian tube was then identified and followed through to the fimbria. It was ligated, cut, and cauterized in similar fashion. The right fallopian tube was tagged. Both fallopian tubes had excellent hemostasis. The fascia was reapproximated using 0 Vicryl in running stitch. The subcutaneous tissue was carefully examined and no further bleeding was noted. The skin was then reapproximated using 4-0 Vicryl in a running subcuticular stitch. A sterile dressing was placed. All counts were correct x2. The patient was moved to the recovery room in stable condition.
--- NOTE | 2021-06-27 12:20 | PM.OBGYPN ---
USED CAR SALESPERSON Subjective Subjective: Interval history: The patient is doing well. She is breast-feeding well. Her bleeding has been within normal limits. She still desires to have her tubal ligation. Labor: Station: +2 Amniotic Membrane Status: Intact Monitor Mode: Palpation Contraction Pattern: Regular Status: Category I Vitals/I&O/Wt Last Vital Signs Temp 97.9 F 06/27/21 11:40 Pulse 79 06/27/21 11:40 Resp 16 06/27/21 11:40 BP 120/73 06/27/21 11:40 Pulse Ox 93 06/27/21 11:40 06/26/21 06/27/21 06/27/21 22:59 06:59 14:59 Intake Total 500 / 500 500 / 500 Output Total 400 / 400 1600 / 2000 Balance -400 / -400 -1100 / -1500 490 / 490 Weight last 48 hrs Weight 217 lb Physical Exam Narrative: The patient is alert. She appears comfortable. Her heart has a regular rate and rhythm with no murmurs appreciated. Lungs are clear to auscultation bilaterally. Her fundus is firm and below the umbilicus. Urinary Catheter Management: Thompson Latex: Cath Placed During This Visit: yes, but has since been removed by the nurse Reason for Continuing Indwelling Catheter: Decision to DC Catheter Urinary Catheter Date of Insertion: 06/26/21 Urinary Catheter Time of Insertion: 18:25 Date Urinary Catheter Removed: 06/26/21 Time Urinary Catheter Discontinued: 20:48 Data : 06/27/21 09:50 A&P Assessment and plan (1) Sterilization consult: Status: Acute (2) (spontaneous vaginal delivery): Status: Acute (3) 38 weeks gestation of : Status: Acute (4) History of maternal cardiomyopathy, currently in third trimester: We will continue to monitor the patient until tomorrow due to her history of cardiomyopathy. I am hopeful she can go home tomorrow. Status: Acute Attestations Medical Necessity Statement*: I anticipate the patient will be discharged home tomorrow. Coding Level of Care Code Acute Supervisor Model Making for Chg Fwd Diagnoses Sterilization consult Z30.09 (spontaneous vaginal delivery) O80 38 weeks gestation of Z3A.38 History of maternal cardiomyopathy, currently in third trimester O09.893
[2021-06-27 16:53] LABS: Glucose Point of Care 146 mg/dL (70-110)
[2021-06-28] MEDS: HYDROcodone-acetaminophen 5-325 mg Tablet PO ×2 (00:21→06:29)
[2021-06-28 04:00] VITALS: BP 115/72; PULSE 72; RESP 18; TEMP 36.6
[2021-06-28 06:28] LABS: Glucose Point of Care 97 mg/dL (70-110)
--- NOTE | 2021-06-28 08:56 | PM.OBGYDC ---
Discharge Providers HEALTH INFORMATION ADMINISTRATOR Date of Admission: 06/26/21 15:02 Date of Discharge: 06/29/21 Attending Provider at Admission: Scott Bernard MD Attending Provider at Discharge: Scott Bernard MD Primary Care Provider: Scott Bernard MD Diagnoses at Discharge Discharge Diagnosis (1) Sterilization consult: Details from hospital stay: Her tubal ligation was unremarkable, and her course has only been remarkable for increased pain. Has been controlled with ibuprofen and [place]. Status: Resolved (2) (spontaneous vaginal delivery): Status: Resolved (3) 38 weeks gestation of : Status: Resolved (4) History of maternal cardiomyopathy, currently in third trimester: Details from hospital stay: There have been no indications that she has any repeat cardiomyopathy. Reason for Visit Reason for Visit: CONTRACTIONS Hospital Course Hospital Course The patient presented to the hospital in active labor. She progressed to complete and had an unremarkable delivery of a healthy-appearing female infant. She had a tubal ligation. Her blood sugars were within normal limits. There were no concerns. Information Peripartum Data: Infant Delivery Method: Vaginal Physical Exam Narrative: The patient is alert. She appears comfortable. Her heart has a regular rate and rhythm with no murmurs appreciated. Lungs are clear to auscultation bilaterally. Her fundus is firm and below the umbilicus. Her dressing is clean dry and intact. Urinary Catheter Management: Thompson Latex: Cath Placed During This Visit: yes, but has since been removed by the nurse Reason for Continuing Indwelling Catheter: Decision to DC Catheter Urinary Catheter Date of Insertion: 06/26/21 Urinary Catheter Time of Insertion: 18:25 Date Urinary Catheter Removed: 06/26/21 Time Urinary Catheter Discontinued: 20:48 Discharge Data Studies Completed and Pending Pending at discharge Category Date Time Status Pathology: Surgical [PTH] Routine Pth 06/27/21 10:46 Received Laboratory Results WBC 13.7 10^3/uL (4.0-10.0) H 06/27/21 09:50 RBC 4.27 10^6/uL (4.1-5.3) 06/27/21 09:50 Hgb 12.0 g/dL (11.5-15.3) 06/27/21 09:50 Hct 37.4 % (37.0-47.0) 06/27/21 09:50 MCV 87.6 fl (81-99) 06/27/21 09:50 MCH 28.1 pg (28.0-34.0) 06/27/21 09:50 MCHC 32.1 g/dL (30.0-36.0) 06/27/21 09:50 RDW 13.8 % (12.1-15.1) 06/27/21 09:50 Plt Count 307 10^3/cmm (130-400) 06/27/21 09:50 MPV 11.8 fL (7.4-10.4) H 06/27/21 09:50 Neut % (Auto) 77.4 % 06/26/21 15:45 Lymph % (Auto) 13.5 % 06/26/21 15:45 [place] % (Auto) 8.7 % 06/26/21 15:45 Eos % (Auto) 0.1 % 06/26/21 15:45 Baso % (Auto) 0.1 % 06/26/21 15:45 Neut # (Auto) 10.43 10^3/uL (1.8-7.7) H 06/26/21 15:45 Lymph # (Auto) 1.8 10^3/uL (0.8-4.8) 06/26/21 15:45 Hyde # (Auto) 1.2 10^3/uL (0.2-0.9) H 06/26/21 15:45 Eos # (Auto) 0.0 10^3/uL (0.0-0.8) 06/26/21 15:45 Baso # (Auto) 0.0 10^3/uL (0.0-0.1) 06/26/21 15:45 Nucleated RBC % (auto) 0 % 06/26/21 15:45 Nucleated RBCs # 0.0 /100WBC 06/26/21 15:45 POC Glucose 97 mg/dL (70-110) 06/28/21 06:22 Urine Opiates Screen Negative ng/mL (Negative) 06/26/21 16:35 Ur Barbiturates Screen Negative ng/mL (Negative) 06/26/21 16:35 Ur Phencyclidine Scrn Negative ng/mL (Negative) 06/26/21 16:35 Ur Amphetamines Screen Negative ng/mL (Negative) 06/26/21 16:35 U Benzodiazepines Scrn Negative ng/mL (Negative) 06/26/21 16:35 Urine Cocaine Screen Negative ng/mL (Negative) 06/26/21 16:35 U Marijuana (THC) Screen Negative ng/mL (Negative) 06/26/21 16:35 Vitals Last Vital Signs Temp 97.8 F 06/28/21 04:00 Pulse 72 06/28/21 04:00 Resp 18 06/28/21 04:00 BP 115/72 06/28/21 04:00 Pulse Ox 96 06/27/21 19:00 Discharge Plan Discharge Patient Disposition: Home Condition: Stable Prescriptions: New ibuprofen 800 mg Tablet 800 mg PO TID Qty: 45 0RF hydrocodone-acetaminophen 5-325 mg Tablet 1 tab PO Q6H PRN (Reason: Moderate To Severe Pain) Qty: 20 0RF docusate sodium 100 mg Capsule 100 mg PO BID Qty: 14 0RF Discharge Orders: Discharge Order (Routine); Ordered 06/28/21 Ordered By: Scott Bernard Referrals: Scott Bernard MD [Primary Care Provider] - 07/02/21 8:15 am Discharge Diet: Usual diet Discharge Activity: Limit activity as instructed Patient Instructions: Depression (DC), Bleeding (DC), Preeclampsia and Eclampsia After Delivery (GEN), OB Discharge Report, OB Food/Drug Interaction Guide, OB Care at Home, Opioid Safety, OB Home Care, OB Vaginal Deliveries, Abnormal Bleeding Discharge Attestations HEALTH INFORMATION ADMINISTRATOR Time Spent in Discharge Care*: greater than 30 min Coding Level of Care Code Acute Senior Insight Manager for g Fwd Diagnoses Sterilization consult Z30.09 (spontaneous vaginal delivery) O80 38 weeks gestation of Z3A.38 History of maternal cardiomyopathy, currently in third trimester O09.893
[2021-06-28] MEDS: docusate sodium 100 mg Capsule PO (09:53)
[2021-06-28] MEDS: ibuprofen 800 mg tablet PO (09:53)
[2021-06-28] MEDS: prenatal vitamin Capsule 1 CAP PO (09:53)
[2021-06-28 10:00] VITALS: BP 117/77; PULSE 85; RESP 16; TEMP 36.9
== END 2021-06-28 10:10 | disposition home or self-care (01) | DRG 798 ==
LOC: OPOB 06-27 06:14 → OBGYN 06-27 06:14
PROVIDERS: Admitting Provider Family Medicine; PCP Family Medicine; Visit Provider Family Medicine
PROC: 0UL70ZZ Occlusion of Bilateral Fallopian Tubes, Open Approach (ICD-10-PCS; CPT 58605; principal; 2021-06-27 10:00)
DX: O99.334 Smoking (tobacco) complicating childbirth (principal); Z37.0 Single live birth; O24.420 Gestational diabetes mellitus in childbirth, diet controlled; O69.81X0 Labor and delivery complicated by cord around neck, without compression, not applicable or unspecified; Z3A.38 38 weeks gestation of pregnancy; Z30.2 Encounter for sterilization
CPT/HCPCS: 12345; 36415; 36416; 51702; 59409; 80306; 82962; 85025; 85027; 88302; 99211; J0330; J1100; J2405; J2704; J2795; J3010; J3490

== ENCOUNTER → 2023-10-12 11:22 | Outpatient (BNVA) | payer MEDICAID, SELFPAY | PROVIDERS: PCP Family Medicine; Visit Provider Podiatrist Foot & Ankle Surgery | DX: S82.61XA Displaced fracture of lateral malleolus of right fibula, initial encounter for closed fracture (principal); S82.51XA Displaced fracture of medial malleolus of right tibia, initial encounter for closed fracture; X50.9XXA Other and unspecified overexertion or strenuous movements or postures, initial encounter | CPT/HCPCS: 73610 ==

== ENCOUNTER 2023-11-25 13:00 | Outpatient (CLI) | payer MEDICAID, SELFPAY ==
--- NOTE | 2023-11-25 13:12 | MR_ITS ---
WS: [id number] EXAMINATION: MR ankle RT wo con* [id number] ORDER DATE: 11/25/2023 1:21 PM COMPARISON: None. HISTORY: R ANKLE PAIN/INJURY/EVAL R ANKLE FOR OSTEOCHONDRAL DEFECT CONTRAST: None. TECHNIQUE: Axial proton density fat sat, axial T1, sagittal proton density, sagittal STIR, coronal T2 fat sat, and coronal T1 sequences performed. . FINDINGS: Normal ankle mortise. Normal bone marrow signal in the talar dome. Distal Achilles is normal in appea nisreen. Normal bone marrow signal in the calcaneus. Normal plantar aponeurosis. Plantar calcaneal spur ring. Tiny sliver like avulsion tip of the lateral malleolus. Small bony avulsion tip of the medial m alleolus with associated fluid and edema. Associated high-grade tear with increased signal with fluid and edema involving the deltoid ligament. Normal peroneal longus and brevis. Tenosynovitis involving the tibialis posterior. Normal extensor co mpartment tendons. High-grade tear of the ATFL which is not well visualized. High-grade tear of the c alcaneofibular ligament with increased signal with fluid and edema. Small amount of edema at the talo calcaneal articulation. Normal cuboid. Bony edema likely due to contusion involving the anteromedial talus. MR/MR ankle RT wo con* [id number] IMPRESSION: 1. Tiny sliver like avulsion involving the tip of the lateral malleolus with a ssociated fluid and edema. High-grade tear of the ATFL which is not visualized. 2. Bony avulsion tip of the medial malleolus with associated edema and high-gr katja tear of the deltoid ligament. Associated contusion involving the anterior m edial talus. 3. Peroneal longus and brevis are intact. 4. High-grade tear of the calcaneofibular ligament.
== END 2023-11-25 13:08 | disposition home or self-care (01) ==
PROVIDERS: PCP Family Medicine; Visit Provider Podiatrist Foot & Ankle Surgery
DX: S82.64XA Nondisplaced fracture of lateral malleolus of right fibula, initial encounter for closed fracture (principal); S93.421A Sprain of deltoid ligament of right ankle, initial encounter; S93.411A Sprain of calcaneofibular ligament of right ankle, initial encounter; M77.31 Calcaneal spur, right foot; X58.XXXA Exposure to other specified factors, initial encounter
CPT/HCPCS: 73721

== ENCOUNTER 2023-12-15 08:14 | Oncology outpatient (recurring) (ONCR) | payer MEDICAID, SELFPAY ==
[2023-12-15 08:37] LABS: Basophils % 0.3 %; Eosinophils # 0.1 10^3/uL (0.0-0.8); Hematocrit 41.3 % (36-47); Lymphocytes # 3.8 10^3/uL (0.8-4.8); Lymphocytes % 33.2 %; Mean Corpuscular HGB Conc 31.7 g/dL (30-55); Mean Corpuscular Hemoglobin 28.5 pg (27-33); Monocytes # 0.9 10^3/uL (0.2-0.9); Monocytes % 7.4 %; Neutrophils # 6.63 10^3/uL (1.8-7.7); Neutrophils % 57.8 %; Nucleated Red Blood Cells % 0 %; Platelet Count 438 10^3/cmm (157-399); Red Blood Count 4.59 10^6/uL (3.85-5.65); Red Cell Distribution Width 12.5 % (12.1-15.1); White Blood Count 11.48 10^3/uL (3.29-11.43)
[2023-12-15 08:43] LABS: Erythrocyte Sedimentation Rate 5 mm/hr (0-15)
[2023-12-15 09:04] LABS: Alanine Aminotransferase 34 U/L (0-33); Albumin Level 4.3 g/dL (3.5-5.2); Alkaline Phosphatase 100 U/L (35-105); Anion Gap 13.6 (5-19); Aspartate Amino Transferase 22 U/L (0-32); Blood Urea Nitrogen 5 mg/dL (6-20); Calcium 8.8 mg/dL (8.5-10.5); Carbon Dioxide 28 mmol/L (22-29); Chloride 101 mmol/L (98-107); Globulin 2.9 g/dL (1.3-4.6); Glomerular Filtration Rate 84.2 mL/min (90-130); Glucose 132 mg/dL (65-115); Lactate Dehydrogenase 185 U/L (135-214); Osmolality Calculated 285 mOsm/kg (285-295); Potassium 4.6 mmol/L (3.5-5.1); Sodium 138 mmol/L (136-145); Total Bilirubin 0.4 mg/dL (0.15-1.2); Total Protein 7.2 g/dL (6.6-8.7)
== END 2023-12-23 23:59 | disposition home or self-care (01) ==
PROVIDERS: PCP Family Medicine; Visit Provider Internal Medicine Hematology & Oncology
DX: D75.838 Other thrombocytosis (principal); R79.89 Other specified abnormal findings of blood chemistry
CPT/HCPCS: 36415; 80053; 83010; 83615; 85025; 85651

== ENCOUNTER → 2023-12-20 15:23 | Outpatient (BNVA) | payer MEDICAID, SELFPAY | PROVIDERS: PCP Family Medicine; Referring Provider Family Medicine; Visit Provider Nurse Practitioner Women's Health | DX: N92.6 Irregular menstruation, unspecified (principal) | CPT/HCPCS: 83036; 84402; 84403 ==

== ENCOUNTER → 2024-01-05 11:20 | Outpatient (BNVA) | payer MEDICAID, SELFPAY | PROVIDERS: PCP Family Medicine; Visit Provider Nurse Practitioner Women's Health | DX: N92.6 Irregular menstruation, unspecified (principal) | CPT/HCPCS: 76830 ==

== ENCOUNTER → 2024-02-03 15:32 | Outpatient (BNVA) | payer MEDICAID, SELFPAY | PROVIDERS: PCP Family Medicine; Visit Provider Nurse Practitioner Women's Health | DX: R10.2 Pelvic and perineal pain (principal) | CPT/HCPCS: 87624 ==

== ENCOUNTER 2024-03-30 12:48 | Oncology outpatient (recurring) (ONCR) | payer MEDICAID, SELFPAY ==
[2024-03-30 13:41] LABS: Basophils % 0.5 %; Eosinophils # 0.1 10^3/uL (0.0-0.8); Eosinophils % 0.6 %; Hematocrit 43.5 % (36-47); Lymphocytes # 2.2 10^3/uL (0.8-4.8); Lymphocytes % 26.4 %; Mean Corpuscular HGB Conc 32.2 g/dL (30-55); Mean Corpuscular Hemoglobin 28.9 pg (27-33); Mean Corpuscular Volume 89.9 fl (85-98); Mean Platelet Volume 10.1 fL (7.4-10.4); Monocytes # 0.7 10^3/uL (0.2-0.9); Monocytes % 7.8 %; Neutrophils # 5.35 10^3/uL (1.8-7.7); Neutrophils % 64.5 %; Nucleated Red Blood Cells % 0 %; Platelet Count 421 10^3/cmm (157-399); Red Blood Count 4.84 10^6/uL (3.85-5.65); Red Cell Distribution Width 12.6 % (12.1-15.1)
[2024-03-30 13:47] LABS: Erythrocyte Sedimentation Rate 7 mm/hr (0-15)
[2024-03-30 13:57] LABS: Alanine Aminotransferase 31 U/L (0-33); Albumin Level 4.5 g/dL (3.5-5.2); Alkaline Phosphatase 83 U/L (35-105); Anion Gap 12.9 (5-19); Aspartate Amino Transferase 25 U/L (0-32); Blood Urea Nitrogen 5 mg/dL (6-20); Calcium 9.2 mg/dL (8.5-10.5); Carbon Dioxide 26 mmol/L (22-29); Chloride 101 mmol/L (98-107); Globulin 3.3 g/dL (1.3-4.6); Glomerular Filtration Rate 98.3 mL/min (90-130); Glucose 103 mg/dL (65-115); Lactate Dehydrogenase 134 U/L (135-214); Osmolality Calculated 280 mOsm/kg (285-295); Potassium 3.9 mmol/L (3.5-5.1); Sodium 136 mmol/L (136-145); Total Bilirubin 0.3 mg/dL (0.15-1.2); Total Protein 7.8 g/dL (6.6-8.7)
== END 2024-04-21 23:59 | disposition home or self-care (01) ==
PROVIDERS: PCP Family Medicine; Visit Provider Internal Medicine Hematology & Oncology
DX: Z53.9 Procedure and treatment not carried out, unspecified reason; D75.838 Other thrombocytosis; F17.290 Nicotine dependence, other tobacco product, uncomplicated; Z71.6 Tobacco abuse counseling
CPT/HCPCS: 36415; 80053; 83010; 83615; 85025; 85651

== ENCOUNTER 2024-05-23 08:25 | Day surgery (SDC) | payer MEDICAID, SELFPAY ==
[2024-05-23] VITALS (13 sets, daily range): BP systolic 103–122; BP diastolic 61–84; PULSE 66–88; RESP 12–21; TEMP 36.1–36.2; O2SAT 96–100; BMI 40.8
--- NOTE | 2024-05-23 05:24 | PM.OBGYHP ---
Providers/Chief Complaint Admitting Physician: Jone Gaxiola MD Primary HEALTH AND SAFETY REPRESENTATIVE: Jone Gaxiola MD Primary Care Provider: Mariam Romano MD Chief Complaint: R10.2, G89.29, N94.6 HPI HEALTH AND SAFETY REPRESENTATIVE History of Present Illness Daxa Kim is a 28 year old female h/o BTL with history of heavy menstrual bleeding and chronic pelvic pain now scheduled for laparoscopy, hysteroscopy, endometrial sampling and polypectomy Medications/Allergies Home Medications ?Medication ?Instructions ?Recorded ?Confirmed ?Last Taken ?Type No Known Home Medications 05/22/24 05/22/24 Unknown History Allergies Allergy/AdvReac Type Severity Reaction Status Date / Time No Known Allergies Allergy Verified 03/31/24 14:32 PFSH HEALTH AND SAFETY REPRESENTATIVE PFSH: Medical History History of maternal cardiomyopathy, currently in third trimester GDM (gestational diabetes mellitus) Family History Other No significant active problems No significant family history Social History Smoking and tobacco/nicotine status: current some day tobacco/nicotine user (vape) cigarettes Packs smoked per day: 0.25 (3-4 cig/day) Years cigarettes smoked: 14 Personal Safety: Do you feel safe at home: Yes Victim of physical abuse: No Victim of emotional abuse: No Victim of sexual abuse: No Would you like help information on resources?: No Physical Exam Const: COMMON NORMALS: no acute distress, average body habitus, patient oriented x3, healthy appearing, alert and well nourished Resp: COMMON NORMALS: normal respiratory effort, No use of accessory muscles and clear to auscultation bilaterally Cardio: COMMON NORMALS: regular rate and regular rhythm GI: COMMON NORMALS: Normal to inspection, nondistended, normoactive bowel sounds present, Soft to palpation and non-tender Results Labs OB ([facility]): Hct 43.5 % (36-47) 03/30/24 Hgb 14.00 g/dL (11.27-16.99) 03/30/24 Plt Count 421 10^3/cmm (157-399) H 03/30/24 Hemoglobin A1c 5.8 % (4.0-6.0) 12/20/23 Pap Smear Interpret See note 02/03/24 Free Testosterone 3.9 pg/mL (0.2-5.0) 12/20/23 A&P Assessment and plan (1) Heavy periods: plan laparoscopy, hysteroscopy, endometrial sampling, possible endometrial polypectomy Discussed procedures and risks Risks include, but not limited to, infection, bleeding, injury to internal organs, anesthesia, blood transfusions Patient understands and wants to proceed Qualifiers: Menorrhagia type: with regular cycle Qualified Code(s): N92.0 - Excessive and frequent menstruation with regular cycle (2) Chronic pelvic pain in female: PDMP PDMP Reviewed: Not Reviewed Attestations Medical Necessity Statement*: patient with menorrhagia and chronic pelvic pain, now for laparoscopy, hysteroscopy. Coding Level of Care Code Acute Code for Chg Fwd Diagnoses Menorrhagia with regular cycle N92.0 Menorrhagia type: with regular cycle Chronic pelvic pain in female R10.2; G89.29
[2024-05-23] MEDS: sodium chloride 0.9% 1,000 ML 30 ML IV (08:44)
[2024-05-23 09:09] LABS: OR HCG Qualitative Urine Negative (Negative)
--- NOTE | 2024-05-23 09:41 | W.PM.OPSUD ---
Surgery/Procedure H&P Update DATE OF PROCEDURE: May 23, 2024 DATE H&P PERFORMED: 05/23/24 H&P UPDATE INFORMATION: I have reviewed H&P completed within last 30 days, I have examined patient prior to procedure and No changes to prior documentation PREOP DIAGNOSIS: chronic menorrhagia and pelvic pain PLANNED PROCEDURE: Operation Date: 05/23/24 09:45 Proposed Procedures p Laparoscopy 61026, 17733, R10.2, G89.29, N94.6(Not Applicable) - Jone Gaxiola MD s Hysteroscopy Hysteroscopy w/ Endometrial Sampling(Not Applicable) - Jone Gaxiola MD s possible endometrial polypectomy(Not Applicable) - Jone Gaxiola MD
--- NOTE | 2024-05-23 10:46 | ANES.PREANE2 ---
Pre-Anesthetic Assessment Height/Weight: Height 1.63 m Weight 107.955 kg Temp Pulse Resp BP Pulse Ox O2 Del Method 97.0 F L 80 17 122/84 98 Room Air 05/23/24 08:37 05/23/24 08:37 05/23/24 08:37 05/23/24 08:37 05/23/24 08:37 05/23/24 08:40 Preop Diagnosis: chronic menorrhagia and pelvic pain Operation Date: 05/23/24 09:45 Proposed Procedures p Laparoscopy 72570, 19868, R10.2, G89.29, N94.6(Not Applicable) - Jone Gaxiola MD s Hysteroscopy Hysteroscopy w/ Endometrial Sampling(Not Applicable) - Jone Gaxiola MD s possible endometrial polypectomy(Not Applicable) - Jone Gaxiola MD Familial anesthetic complications: none Was Beta Sergey taken within 24 hours: N/A Was Clonidine taken within 24 hours: N/A Last intake: Intake Last Liquid Date 05/22/24 Last Liquid Time 23:58 Last Solid Date 05/22/24 Last Solid Time 18:00 Social No alcohol Exam alert, oriented x 3, clear to auscultation bilaterally and regular rate & rhythm Airway Mallampati: Class III Dentition: chipped CV/HEM Congestive Heart Failure and Hypertension Metabolic Morbid Obesity Anesthetic Plan ASA status: 3 Anesthesia: General Risk of > 500 ml blood loss (7ml/kg in children): No Medications/Allergies Home Medications ?Medication ?Instructions ?Recorded ?Confirmed ?Last Taken ?Type No Known Home Medications 05/22/24 05/22/24 Unknown History Allergies Allergy/AdvReac Type Severity Reaction Status Date / Time No Known Allergies Allergy Verified 03/31/24 14:32 Current Medications Generic Name Dose Route Start Last Admin Trade Name Freq PRN Reason Stop Dose Admin Sodium Chloride 1,000 mls @ 30 mls/hr 05/23/24 08:30 05/23/24 08:44 Sodium Chloride 0.9% IV 05/24/24 08:29 30 mls/hr .Q24H MOHSEN Administration PFSH Anesthesia Medical History History of maternal cardiomyopathy, currently in third trimester GDM (gestational diabetes mellitus) Family History Other No significant active problems No significant family history Social History Smoking and tobacco/nicotine status: current some day tobacco/nicotine user (vape) cigarettes Packs smoked per day: 0.25 (3-4 cig/day) Years cigarettes smoked: 14 Data Anesthesia Cardiac Studies: Echocardiogram 05/07/21 Echocardiogram Ultrasound 01/30/20
[2024-05-23] MEDS: ondansetron 2 mg/ML SDV 2 mL 4 MG IVP ×2 (11:30→11:37)
[2024-05-23] MEDS: metoclopramide 5 mg/mL SDV 2 mL 10 MG IVP (11:48)
[2024-05-23] MEDS: fentaNYL 50 mcg/mL INJ 2mL IVP (12:11)
[2024-05-23] MEDS: oxyCODONE-APAP 5-325 mg Tablet 1 TAB PO (12:24)
[2024-05-23] MEDS: diphenhydrAMINE 50 mg/mL SDV 1mL 12.5 MG IVP (12:49)
--- NOTE | 2024-05-23 12:55 | PM.OP ---
Operative Report Date of procedure: May 23, 2024 Pre-op diagnosis: Chronic pelvic pain Heavy menstrual bleeding Post-op diagnosis: same Post-op findings: Normal pelvis No evidence of endometriosis Normal endometrial cavity Minimal endometrial tissue No polyps or fibroids Procedure done: Laparoscopy Hysteroscopy Curettage of uterus Implants: none Specimens removed/disposition: endometrial tissue, sent to pathology Surgeon: Jone Gaxiola MD Anesthesia: General Estimated blood loss (mL): 0 Complications: none Findings: Normal pelvis No evidence of endometriosis Normal endometrial cavity Minimal endometrial tissue No polyps or fibroids Condition: stable Disposition: PACU Brief History: 28 y.o. with chronic pelvic pain and heavy menstrual bleeding Procedure: Informed consent obtained. The patient was taken to the OR and placed supine on the table. General endotracheal anesthesia was given. The patient was then placed in dorsolithotomy position. The abdomen and perineum were prepped and draped in usual fashion. A 5 mm subumbilical skin incision was made. A laparoscopic trocar with sheath was inserted into the peritoneal cavity under direct vision with the laparoscope. Pneumoperitoneum was achieved. Two separate 5 mm incisions were made in the right and left mid-abdominal quadrants under direct visualization to accommodate additional trocars and sheaths. The pelvis was explored with the laparoscope. Normal uterus and ovaries were seen. Normal fallopian tubes were seen. No abnormalities were seen in the utero-ovarian ligaments, broad ligaments, anterior and posterior cul-de-sacs and pelvic side-adams. No white or red lesions, fenestrations, or vascular abnormalities were seen. There were no stellate lesions or fibrosis/adhesions seen. No bleeding was seen The liver edge was visualized and was normal. The remainder of the pelvis was again examined and seen to be normal. All instruments were then removed from the abdominal cavity after the pneumoperitoneum was allowed to escape. The skin incisions were closed with 4-O monocryl. Dermabond was applied. A bivalve speculum was placed in the vagina. The anterior lip of the cervix was grasped with a sharp-toothed tenaculum. The cervix was serially dilated with Hegar dilators. . A hysteroscope was placed into the endometrial cavity. The endometrial cavity was seen to be normal. There were no polyps or fibroids. There was a minimal amount of endometrial tissue. The hysteroscope was then removed. Endometrial curettage was done with a sharp curette. Endometrial tissue was sent to pathology. The sharp-toothed tenaculum was removed. There was no bleeding from the endometrial cavity or cervix. The patient was then placed supine and awakened and taken to the PACU. Postop condition: stable EBL: none Sponge and instruments counts were normal x 2 Complications: none
--- NOTE | 2024-05-23 13:25 | ANE.PACU2 ---
Inpatient post-anesthesia follow up: Airway intact: Yes Vital signs: Temperature 97.1 F Pulse Rate 78 Respiratory Rate 17 Blood Pressure 106/79 Pulse Oximetry 97 Oxygen Delivery Me thod Room Air Oxygen Flow Rate 8 Fraction of Inspir ed Oxygen Hydration adequate: Yes Nausea and vomiting: No Pain level: 1 Mental status: Baseline
== END 2024-05-23 13:24 | disposition home or self-care (01) ==
PROVIDERS: PCP Family Medicine; Visit Provider Obstetrics & Gynecology
PROC: (CPT 49320; principal; 2024-05-23 09:45)
PROC: 0UJD8ZZ Inspection of Uterus and Cervix, Via Natural or Artificial Opening Endoscopic (ICD-10-PCS; CPT 58555; 2024-05-23 09:45)
DX: N94.6 Dysmenorrhea, unspecified (principal); R10.2 Pelvic and perineal pain; G89.29 Other chronic pain; I11.0 Hypertensive heart disease with heart failure; I50.9 Heart failure, unspecified; F17.210 Nicotine dependence, cigarettes, uncomplicated; E66.01 Morbid (severe) obesity due to excess calories; Z68.41 Body mass index [BMI] 40.0-44.9, adult
CPT/HCPCS: 58558; 81025; 88305; J1100; J1171; J1200; J2250; J2405; J2704; J2710; J2765; J3010; J3490; J7030; J9999

== ENCOUNTER 2024-05-24 23:46 | Emergency (ER) | payer MEDICAID, SELFPAY ==
--- NOTE | 2024-05-24 23:50 | XRR_ITS ---
PROCEDURE INFORMATION: Exam: XR Chest Exam date and time: 05/24/2024 11:58 PM Age: 28 years old Clinical indication: Pain; Chest pressure; Additional info: Chest pain TECHNIQUE: Imaging protocol: Radiologic exam of the chest. Views: 1 view. COMPARISON: CT angio chest PE protcl [id number] 07/07/2020 12:53 PM FINDINGS: Lungs: No consolidation. Pleural spaces: No pleural effusion. No pneumothorax. Heart/Mediastinum: No cardiomegaly. Diaphragm: Lucency beneath the right medial hemidiaphragm. Bones/joints: No acute findings. XR/XR chest 1V portable [id number] IMPRESSION: Artifact versus free air beneath the right hemidiaphragm.
--- NOTE | 2024-05-24 23:50 | ECG_ITS ---
[facility] [place] [facility] Date: 2024-05-24 Pat Name: Daxa Kim Department: Room: Gender: Female [employer]: : 1995 Requested By: Amelia Martinez Order Number: [id number] Antoinette MD: Sg Akers M.D. Measurements Intervals [place] Rate: 67 P: 66 SC: 146 QRS: 85 QRSD: 85 T: 87 QT: 395 QTc: 418 Interpretive Statements SINUS RHYTHM NONSPECIFIC T-WAVE ABNORMALITY Compared to ECG 01/30/2020 14:55:52 T-wave abnormality now present Electronically Signed On 05-25-2024 17:34:30 CDT by Sg Akers M.D. [email or web address]
[2024-05-24 23:54] VITALS: BP 120/59; PULSE 77; RESP 22; TEMP 36.5; O2SAT 98; BMI 40.8
[2024-05-24 23:59] VITALS: BP 120/59; PULSE 77; RESP 22; O2SAT 98
--- NOTE | 2024-05-25 00:12 | W.ED.EXTPRO ---
HPI - Extremity Problem General: Chief complaint: Extremity Problem,Nontraumatic Stated complaint: left shoulder pain Time Seen by Provider: 05/24/24 23:50 History of Present Illness: 28-year-old female who has a history of anxiety and heavy menstrual bleeding who had a laparoscopic and hysteroscopy 2 days ago who presents emergency room by ambulance with severe right shoulder pain and shortness of breath. She appears quite anxious on presentation. She is reporting left arm numbness at this point. No fevers. No cough. Related Data Previous Rx's ?Medication ?Instructions ?Recorded oxycodone-acetaminophen 5 mg-325 1 tab PO Q8H PRN pain #14 tabs //25 mg tablet (Percocet) Allergies Allergy/AdvReac Type Severity Reaction Status Date / Time No Known Allergies Allergy Verified 03/31/24 14:32 Review of Systems Narrative: Constitutional symptoms: Negative except as documented in HPI. Skin symptoms: Negative except as documented in HPI. Eye symptoms: Negative except as documented in HPI. ENMT symptoms: Negative except as documented in HPI. Respiratory symptoms: Negative except as documented in HPI. Cardiovascular symptoms: Negative except as documented in HPI. Gastrointestinal symptoms: Negative except as documented in HPI. Genitourinary symptoms: Negative except as documented in HPI. Musculoskeletal symptoms: Negative except as documented in HPI. Neurologic symptoms: Negative except as documented in HPI. Psychiatric symptoms: Negative except as documented in HPI. Endocrine symptoms: Negative except as documented in HPI. [facility] ED PFSH: Medical History History of maternal cardiomyopathy, currently in third trimester GDM (gestational diabetes mellitus) Family History Other No significant active problems No significant family history Social History Smoking and tobacco/nicotine status: current some day tobacco/nicotine user (vape) cigarettes Packs smoked per day: 0.25 (3-4 cig/day) Years cigarettes smoked: 14 Physical Exam Narrative: EXAM NARRATIVE: General: Alert, no acute distress. Skin: Warm, dry. Head: Normocephalic, atraumatic. Neck: Supple, trachea midline. Eye: Extraocular movements are intact. Ears, nose, mouth and throat: mucosa moist. Cardiovascular: Regular, Normal peripheral perfusion. Respiratory: Lungs are clear to auscultation, patient is somewhat tachypneic Gastrointestinal: Soft, Nontender, Non distended Musculoskeletal: Normal ROM, no deformity. Neurological: Alert and oriented, No focal neurological deficit observed. Psychiatric: Cooperative, appears anxious Course Vital Signs: Vital signs: Vital Signs Temperature 97.7 F 05/24/24 23:54 Pulse Rate 77 05/24/24 23:59 Respiratory Rate 22 H 05/24/24 23:59 Blood Pressure 120/59 05/24/24 23:59 Pulse Oximetry 98 05/24/24 23:59 Oxygen Delivery Me thod Room Air 05/24/24 23:59 MDM - Extremity (Nontraumatic) Medical Decision Making EKG: Time 2356. Rate 67. Normal sinus rhythm, No ST-T changes, no ectopy, normal MT & QRS intervals, This was reviewed and interpreted by myself the ER physician at 12:01 AM Chest x-ray: No acute process. No infiltrate. No pneumothorax. This was reviewed and interpreted by myself the emergency room physician. I also reviewed the radiology report. Lab Review: Laboratory results were reviewed and interpreted by myself the emergency room physician. Mild leukocytosis. No anemia. No renal failure. Liver enzymes are normal. AB.60/. Patient definitely has been tachypneic and has some hypocapnia. She says she is not anxious. Most likely due to the pain. CTA chest with PE protocol: No PE. No pneumonia. There is a small amount of pneumoperitoneum secondary to her surgery she had the other day. This was reviewed and interpreted by myself the emergency room physician. I also reviewed the radiology report. I reviewed the patient's medical record. Reviewed op note from 05/23. Reexamination: Patient remained stable. No increased work of breathing. No altered mental status. No focal motor deficits. Pain has improved quite a bit Assessment and plan: Postoperative shoulder pain Shortness of breath ?IV Dilaudid, Toradol and Zofran. - Discharged home - Discussed plan with patient. Answered any questions. - Evaluation and treatment of this problem were appropriate in the emergency setting. Lab Data 05/25/24 00:05 05/25/24 00:05 Radiology Impressions Chest X-Ray 05/24/24 23:50 IMPRESSION: Artifact versus free air beneath the right hemidiaphragm. ADDENDUM: 05/25/24 0031 Additional information: Patient recently had a laparoscopic procedure and the free air is compatible with this history. THIS REPORT CONTAINS FINDINGS THAT MAY BE CRITICAL TO PATIENT CARE. The findings were verbally communicated via telephone conference with AMELIA OGDEN at 12:30 AM CDT on 05/25/2024. The findings were acknowledged and understood. Chest CTA 05/25/24 00:47 IMPRESSION: 1. No pulmonary embolus seen. Evaluation limited by artifact. 2. Partially visualized pneumoperitoneum and abdominal wall gas, likely postoperative. 3. Hepatic steatosis. Laboratory Results WBC 12.96 10^3/uL (3.29-11.43) H 05/25/24 00:05 RBC 4.34 10^6/uL (3.85-5.65) 05/25/24 00:05 Hgb 12.30 g/dL (11.27-16.99) 05/25/24 00:05 Hct 37.8 % (36-47) 05/25/24 00:05 MCV 87.1 fl (85-98) 05/25/24 00:05 MCH 28.3 pg (27-33) 05/25/24 00:05 MCHC 32.5 g/dL (30-55) 05/25/24 00:05 RDW 12.6 % (12.1-15.1) 05/25/24 00:05 Plt Count 429 10^3/cmm (157-399) H 05/25/24 00:05 MPV 10.6 fL (7.4-10.4) H 05/25/24 00:05 Neut % (Auto) 59.4 % 05/25/24 00:05 Lymph % (Auto) 31.4 % 05/25/24 00:05 Loving % (Auto) 8.3 % 05/25/24 00:05 Eos % (Auto) 0.2 % 05/25/24 00:05 Baso % (Auto) 0.4 % 05/25/24 00:05 Neut # (Auto) 7.70 10^3/uL (1.8-7.7) 05/25/24 00:05 Lymph # (Auto) 4.1 10^3/uL (0.8-4.8) 05/25/24 00:05 Loving # (Auto) 1.1 10^3/uL (0.2-0.9) H 05/25/24 00:05 Eos # (Auto) 0.0 10^3/uL (0.0-0.8) 05/25/24 00:05 Baso # (Auto) 0.1 10^3/uL (0.0-0.1) 05/25/24 00:05 Nucleated RBC % (auto) 0 % 05/25/24 00:05 Nucleated RBCs # 0.0 /100WBC 05/25/24 00:05 Specimen Type Arterial 05/25/24 00:26 Sample Site Radial, right 05/25/24 00:26 ABG pH 7.60 (7.35-7.45) H* 05/25/24 00: ABG pCO2 20.7 mmHg (35-45) L 05/25/24 00: ABG pO2 86.4 mmHg (80.0-100.0) 05/25/24 00: ABG PO2/FiO2 Ratio 411 05/25/24 00: ABG HCO3 20.2 mmol/L (22-26) L 05/25/24 00: ABG O2 Saturation 99.2 05/25/24 00:26 ABG Base Excess 0.3 mmol/L (-2.0-2.0) 05/25/24 00:26 Reynold Test Pos 05/25/24 00: A-a O2 Gradient 4.5 mmHg (5-10) L 05/25/24 00: Hematocrit 38.3 % (37-47) 05/25/24 00: Hgb O2 Saturation 98.0 % (95-100) 05/25/24 00:26 Carboxyhemoglobin 0.9 %THgb (0.4-20.1) 05/25/24 00: Methemoglobin 0.3 % (0.4-1.5) L 05/25/24 00: Total Hemoglobin 12.5 g/dL (12-16) 05/25/24 00:26 Sodium 139.0 mmol/L (131-143) 05/25/24 00: Potassium 3.3 mmol/L (3.5-5.0) L 05/25/24 00:26 Glucose 121.0 mg/dL (70-115) H 05/25/24 00:26 Ionized Calcium 1.1 mmol/L (1.1-1.4) 05/25/24 00:26 O2 Delivery Device Room air 05/25/24 00:26 FiO2 21.0 % 05/25/24 00:26 Handbag Framer ID [id number] 05/25/24 00:26 Sodium 138 mmol/L (136-145) 05/25/24 00:05 Potassium 3.7 mmol/L (3.5-5.1) 05/25/24 00:05 Chloride 105 mmol/L (98-107) 05/25/24 00:05 Carbon Dioxide 18 mmol/L (22-29) L 05/25/24 00:05 Anion Gap 18.7 (5-19) 05/25/24 00:05 BUN 12 mg/dL (6-20) 05/25/24 00:05 Creatinine 0.9 mg/dL (0.5-0.9) 05/25/24 00:05 GFR Calculation 73.5 mL/min (90-130) L 05/25/24 00:05 Glucose 143 mg/dL (65-115) H 05/25/24 00:05 Calculated Osmolality 288 mOsm/kg (285-295) 05/25/24 00:05 Lactic Acid 3.0 mmol/L (0.5-2.2) H 05/25/24 00:05 Calcium 9.1 mg/dL (8.5-10.5) 05/25/24 00:05 Total Bilirubin 0.2 mg/dL (0.15-1.2) 05/25/24 00:05 AST 15 U/L (0-32) 05/25/24 00:05 ALT 27 U/L (0-33) 05/25/24 00:05 Alkaline Phosphatase 86 U/L (35-105) 05/25/24 00:05 Troponin T Baseline < 6 ng/L (0-10) 05/25/24 00:05 Total Protein 6.5 g/dL (6.6-8.7) L 05/25/24 00:05 Albumin 4.1 g/dL (3.5-5.2) 05/25/24 00:05 Globulin 2.4 g/dL (1.3-4.6) 05/25/24 00:05 All radiology interpretation(s) finalized by discharge Discharge Plan Discharge Patient Disposition: Home Clinical Impression: Acute postoperative pain of shoulder, Shortness of breath, Hypocapnia Condition: Stable Prescriptions: No Action oxycodone-acetaminophen [Percocet] 5-325 mg tablet 1 tab PO Q8H PRN (Reason: pain) Qty: 14 0RF Discharge Orders: Discharge ED (Routine); Ordered 05/25/24 Ordered By: Amelia Ogden Referrals: Mariam Romano MD [Primary Care Provider] - Discharge Diet: As Directed Discharge Activity: Increase activity as tolerated Patient Instructions: Pain Management After Surgery (DC), Opioid Safety, Pain Management Activity Restrictions/Additional Instructions: Thank you for choosing [facility] for your healthcare needs today. Please realize this is an emergency room and that we are providing you with a medical screening exam and this may not be complete and all inclusive of all the testing and or work up that you may need to determine your ailment or severity of your illness. You have been screened and evaluated and felt safe for discharge. Health conditions do change or evolve sometimes and as such it is important that you follow up with your Primary Doctor to be re checked, 3-5 days is a general good time frame for follow up. You are always welcome to return to the ED for re assessment if your symptoms are worsening or you have new concerns Print Language: Nepalese Coding Level of Care Code ED Call Box Wirer for Aniyah Delong
[2024-05-25 00:16] LABS: Basophils # 0.1 10^3/uL (0.0-0.1); Basophils % 0.4 %; Eosinophils % 0.2 %; Hematocrit 37.8 % (36-47); Lymphocytes # 4.1 10^3/uL (0.8-4.8); Lymphocytes % 31.4 %; Mean Corpuscular HGB Conc 32.5 g/dL (30-55); Mean Corpuscular Hemoglobin 28.3 pg (27-33); Mean Corpuscular Volume 87.1 fl (85-98); Mean Platelet Volume 10.6 fL (7.4-10.4); Monocytes # 1.1 10^3/uL (0.2-0.9); Monocytes % 8.3 %; Neutrophils % 59.4 %; Nucleated Red Blood Cells % 0 %; Platelet Count 429 10^3/cmm (157-399); Red Blood Count 4.34 10^6/uL (3.85-5.65); Red Cell Distribution Width 12.6 % (12.1-15.1); White Blood Count 12.96 10^3/uL (3.29-11.43)
[2024-05-25 00:29] VITALS: PULSE 83; RESP 16; O2SAT 100
[2024-05-25 00:34] LABS: Alanine Aminotransferase 27 U/L (0-33); Albumin Level 4.1 g/dL (3.5-5.2); Alkaline Phosphatase 86 U/L (35-105); Anion Gap 18.7 (5-19); Aspartate Amino Transferase 15 U/L (0-32); Blood Urea Nitrogen 12 mg/dL (6-20); Calcium 9.1 mg/dL (8.5-10.5); Carbon Dioxide 18 mmol/L (22-29); Chloride 105 mmol/L (98-107); Creatinine Clr Calc Pharmacy 109.6634; Globulin 2.4 g/dL (1.3-4.6); Glomerular Filtration Rate 73.5 mL/min (90-130); Glucose 143 mg/dL (65-115); Osmolality Calculated 288 mOsm/kg (285-295); Potassium 3.7 mmol/L (3.5-5.1); Sodium 138 mmol/L (136-145); Total Bilirubin 0.2 mg/dL (0.15-1.2); Total Protein 6.5 g/dL (6.6-8.7)
[2024-05-25 00:35] LABS: ABG PCO2 20.7 mmHg (35-45); Alveolar-Arterial Oxygen Gradi 4.5 mmHg (5-10); Arterial Blood Gas Hematocrit 38.3 % (37-47); Base Excess ABG 0.3 mmol/L (-2.0-2.0); Blood Gas Allen Test Pos; Blood Gas Operator Identificat jlb; Blood Gas Sample Site Radial, right; Blood Gas Sample Type Arterial; Carboxyhemoglobin 0.9 %THgb (0.4-20.1); HCO3 ABG 20.2 mmol/L (22-26); Ionized Calcium Level - ABG 1.1 mmol/L (1.1-1.4); Methemoglobin 0.3 % (0.4-1.5); Oxygen Device ROOM AIR; Oxygen Saturation ABG 99.2; PO2 ABG 86.4 mmHg (80.0-100.0); PO2 FiO2 Ratio Arterial Blood 411; Potassium Level - ABG 3.3 mmol/L (3.5-5.0); Total Hemoglobin 12.5 g/dL (12-16)
--- NOTE | 2024-05-25 00:47 | CTR_ITS ---
PROCEDURE INFORMATION: Exam: CTA Chest With Contrast Exam date and time: 05/25/2024 12:57 AM Age: 28 years old Clinical indication: Pain; Chest pressure; Prior surgery; Surgery date: Post-operative (0-2 days); Surgery type: Lower abdomen surgery for endometriosis; Additional info: Chest pain TECHNIQUE: Imaging protocol: Computed tomographic angiography of the chest with contrast. Exam focused on the arteries. 3D rendering (Not supervised by radiologist): MIP and/or 3D reconstructed images were created by the technologist. Radiation optimization: All CT scans at this facility use at least one of these dose optimization techniques: automated exposure control; mA and/or kV adjustment per patient size (includes targeted exams where dose is matched to clinical indication); or iterative reconstruction. Contrast material: OMNI 350; Contrast volume: 100 ml; Contrast route: INTRAVENOUS (IV); COMPARISON: CT angio chest PE prot [id number] 07/07/2020 12:53 PM RADIATION DOSE METRICS: Total DLP (mGy-cm): 519.7 FINDINGS: Pulmonary arteries: Limited evaluation for peripheral pulmonary emboli secondary to artifact, particularly in the right lung. No pulmonary embolus seen. Aorta: No thoracic aortic aneurysm. Lungs: Unremarkable. Pleural spaces: Unremarkable. Heart: Unremarkable. Lymph nodes: No enlarged lymph nodes. Liver: Hepatic steatosis. Intraperitoneal space: Pneumoperitoneum and abdominal wall gas, likely postoperative given clinical history. Bones/joints: No acute fracture. Soft tissues: Unremarkable. CT/CT angio chest PE protcl [id number] IMPRESSION: 1. No pulmonary embolus seen. Evaluation limited by artifact. 2. Partially visualized pneumoperitoneum and abdominal wall gas, likely postoperative. 3. Hepatic steatosis.
[2024-05-25 00:49] LABS: Troponin(5th) Baseline < 6 ng/L (0-10)
[2024-05-25 01:00] VITALS: PULSE 75; O2SAT 98
[2024-05-25] MEDS: iohexol 350 mg/mL 500 mL Btl (per mL) IV (01:10)
[2024-05-25] MEDS: HYDROmorphone 0.5 MG/0.5 ML INJ IVP (01:17)
[2024-05-25] MEDS: ketorolac 30 mg/mL INJ IVP (01:17)
[2024-05-25] MEDS: ondansetron 2 mg/ML SDV 2 mL 4 MG IVP (01:17)
[2024-05-25 01:30] VITALS: BP 118/75; PULSE 59; RESP 16; O2SAT 96
--- NOTE | 2024-05-25 01:50 | ECG_ITS ---
[facility] Test Date: 2024-05-25 Pat Name: Daxa Kim Department: Room: Gender: Female Registered Nurse Maternal Child: : 1995 Requested By: Amelia Martinez Order Number: [id number] Reading MD: JANETH SANTANA Measurements Intervals [place] Rate: 54 P: 57 LA: 147 QRS: 83 QRSD: 88 T: 88 QT: 435 QTc: 415 Interpretive Statements SINUS BRADYCARDIA NONSPECIFIC T-WAVE ABNORMALITY Compared to ECG 05/24/2024 23:56:31 Sinus rhythm no longer present T-wave abnormality still present Electronically Signed On 05-28-2024 21:55:16 CDT by JANETH SANTANA [email or web address]
[2024-05-25 01:56] LABS: Reflex Lactate Order REFLEX LACTIC ORDERD
[2024-05-25 02:00] VITALS: BP 104/66; PULSE 64; RESP 16; O2SAT 96
[2024-05-25 02:30] VITALS: BP 115/78; PULSE 64; RESP 16; O2SAT 98
[2024-05-25 02:42] VITALS: BP 115/78; PULSE 64; O2SAT 98
== END 2024-05-25 02:43 | disposition home or self-care (01) ==
PROVIDERS: Emergency Provider Emergency Medicine; PCP Family Medicine
DX: G89.18 Other acute postprocedural pain (principal); R06.02 Shortness of breath; F17.290 Nicotine dependence, other tobacco product, uncomplicated; Z98.890 Other specified postprocedural states
CPT/HCPCS: 36415; 71045; 71275; 80051; 80053; 82330; 82805; 83605; 84484; 85025; 93005; 96374; 96375; 99285; J1171; J1885; J2405